=== PATIENT | female | born 1960 | race Caucasian/White ===

== ENCOUNTER 2023-02-04 09:54 | Emergency (ER) | payer MEDICAID, SELFPAY ==
[2023-02-04] VITALS (8 sets, daily range): BP systolic 130–173; BP diastolic 64–95; PULSE 78–101; RESP 15–29; TEMP 36.6–36.8; O2SAT 86–96; BMI 29.2
--- NOTE | 2023-02-04 10:03 | ECG_ITS ---
APPROVED REPORT Exam: Resting ECG HR:81 bpm ECG Measurements Heart Rate 81 AXES HI 153 P 75 QRSd 106 QRS -59 QT 418 T 53 QTc 455 Conclusion SINUS RHYTHM POSSIBLE RIGHT ATRIAL ENLARGEMENT [0.25mV P-WAVE] LEFT ATRIAL ENLARGEMENT [-0.15mV P-WAVE IN V1/V2] LEFT ANTERIOR FASCICULAR BLOCK [QRS AXIS <= -45, QR IN I, RS IN II] POSSIBLE ANTERIOR MYOCARDIAL INFARCTION , PROBABLY OLD [30 ms Q WAVE IN V3/V4, OR R < 0.2 mV IN V4] ABNORMAL ECG UNCONFIRMED REPORT Electronically signed by : Brandon Mueller MD 02/04/2023 17:06:45
--- NOTE | 2023-02-04 10:24 | XR_ITS ---
FINAL REPORT TECHNIQUE: Single view chest CLINICAL HISTORY: soa smoker, copd FINDINGS: A single view of the chest was obtained. The heart and mediastinum are within normal limits. There are mild bibasilar opacities which may represent atelectasis or pneumonia. There is no pneumothorax. Osseous structures are unremarkable. IMPRESSION: Mild bibasilar opacities which may represent atelectasis or pneumonia. Reviewed, Interpreted and Dictated by Jamie Barber III, MD Transcribed by Sofia Munguia Authenticated and [facility]
[2023-02-04 10:31] LABS: Basophils # 0.1 K/mm3 (0-0.2); Basophils % 0.3 % (0.1-2.0); Eosinophils # 0.1 K/mm3 (0.0-0.4); Eosinophils % 0.6 % (0.1-12.0); Lymphocytes # 1.8 K/mm3 (0.7-4.5); Lymphocytes % 13.8 % (10-50); Mean Corpuscular HGB Conc 32.9 g/dL (31.8-35.4); Mean Corpuscular Hemoglobin 28.5 pg (27.0-31.2); Mean Corpuscular Volume 86.6 fl (81-99); Mean Platelet Volume 8.3 fl (7.4-10.4); Monocytes # 0.6 K/mm3 (0.1-1.0); Monocytes % 4.9 % (1.7-9.3); Neutrophils # 10.4 K/mm3 (1.8-7.8); Neutrophils % 80.3 % (37.0-80.0); Platelet Count 228 K/mm3 (142-424); Red Blood Count 6.38 M/mm3 (4.20-5.40); Red Cell Distribution Width 15.2 % (11.5-17.5)
[2023-02-04 10:37] LABS: Hematocrit 55.3 % (37.0-47.0); Hemoglobin 18.2 g/dL (12.2-16.2)
--- NOTE | 2023-02-04 10:37 | HMH.EDGENADL ---
Discharge Plan Disposition Patient Disposition: Home, Self-Care Prescriptions Prescriptions: New amoxicillin-pot clavulanate 875-125 mg tablet 1 tab PO BID 7 Days Qty: 14 0RF hydroxyzine pamoate [Vistaril] 25 mg capsule 25 mg PO Q6H PRN (Reason: anxiety) Qty: 30 0RF No Action methocarbamol 750 mg tablet 750 mg PO TID mirtazapine 7.5 mg tablet 7.5 mg PO DAILY Patient Comments: TAKE 1 TABLET BY MOUTH AT BEDTIME sertraline 25 mg tablet 25 mg PO DAILY Patient Comments: TAKE 1 TABLET BY MOUTH ONCE DAILY gabapentin 800 mg tablet 800 mg PO QID Patient Comments: TAKE 1 TABLET BY MOUTH 4 TIMES DAILY NEEDED FOR BACK PAIN levothyroxine 88 mcg tablet 88 mcg PO DAILY atorvastatin 40 mg tablet 40 mg PO DAILY Trelegy Ellipta 200-62.5-25 mcg blister with device 1 inh inhalation DAILY Patient Comments: INHALE 1 PUFF BY MOUTH ONCE DAILY- NEEDS TO BE SEEN FOR FURTHER REFILLS omeprazole 20 mg capsule,delayed release(DR/EC) 20 mg PO DAILY quetiapine 25 mg tablet 25 mg PO HS Patient Comments: TAKE 1 TO 2 TABLETS BY MOUTH AT BEDTIME fluoxetine 20 mg tablet 20 mg PO DAILY Patient Comments: TAKE 1 TABLET BY MOUTH ONCE DAILY ferrous sulfate 325 mg (65 mg iron) tablet,delayed release (DR/EC) 325 mg PO DAILY Patient Comments: TAKE 1 TABLET BY MOUTH TWICE DAILY ondansetron 4 mg tablet,disintegrating 4 mg PO TIDP PRN (Reason: Nausea And Vomiting) Patient Comments: DISSOLVE 1 TABLET IN MOUTH EVERY 8 HOURS NEEDED FOR NAUSEA oxycodone-acetaminophen [Percocet] 5-325 mg tablet 1 tab PO BID Referrals Follow up/Referrals: Sukumar Jiménez MD [Primary Care Provider] - See instructions Activity Restrictions/Add. Instructions Additional Instructions/Restrictions: Call your family doctor to establish care for this visit to the emergency department and schedule follow-up within 48 hours to ensure improvement. If you have any worsening of your condition or any other concerning signs or symptoms, return to the emergency department or your primary care doctor for further evaluation. Antibiotic twice daily for 7 days and Vistaril every 6 hours as needed for anxiety. Clinical Impressions Clinical Impression: COPD (chronic obstructive pulmonary disease), Pneumonia Discharge ED Provider: Luther Cade General Adult HPI General Chief complaint: Shortness of Breath/Dyspnea Stated complaint: soa Time Seen by Provider: 02/04/23 10:00 Mode of Arrival: Family Vehicle Source of Information: Patient and Spouse Limitations: No Limitations Description of Symptoms (Recalled from ER Triage Doc. by RN): Pt c/o SOA and esophageal area pain. Pt reports a hx of COPD and does use O2 at home PRN (2-3LPM). Pt has not been using it as she does still smoke. Her room air sat was 86%. She did take her Albuterol inhaler ~ 0800 and it did not help. Denies any fever, chills, or cough. History of Present Illness HPI narrative: 62-year-old female with history of hypertension, hyperlipidemia, COPD on intermittent nasal cannula oxygen, current tobacco use presenting with shortness of breath. Patient states that has been getting worse over approximately 2 weeks. 1 day prior to arrival on 02/03, in the evening, states that she was feeling worse. Is using her oxygen most of yesterday, typically she only uses it at night or intermittently with exertion. She has had worsening cough, but no increase in production of sputum, or character of sputum change, fevers or chills, nausea or vomiting, abdominal pain, diaphoresis, recent travel, sick contacts, or any other concerns. Related Data Home Medications Medication Instructions Recorded Confirmed atorvastatin 40 mg tablet 40 mg PO DAILY High Cholesterol 01/02/23 02/04/23 fluticasone fur. 200 mcg-umeclid 1 inh inhalation DAILY Copd 01/02/23 02/04/23 62.5 mcg-vilant 25 mcg inhalat.powder
--- NOTE | 2023-02-04 10:38 | PC.NURSE ---
Respiratory notified of VBG order and blood in the lab.
--- NOTE | 2023-02-04 10:39 | PC.NURSE ---
site supervising technical operator at bedside for CXR
[2023-02-04 10:45] LABS: Alanine Aminotransferase 20 U/L (12-78); Albumin Level 4.4 g/dl (3.5-5.0); Albumin/Globulin Ratio 1.2 (1.1-1.8); Alkaline Phosphatase 87 U/L (38-126); Anion Gap 12.3 mEq/L (5-15); Aspartate Amino Transferase 28 U/L (14-36); Bilirubin,Total 0.5 mg/dl (0.2-1.3); Blood Urea Nitrogen 5 mg/dl (7-17); Calcium 7.1 mg/dl (8.4-10.2); Carbon Dioxide 32 mmol/L (22.0-30.0); Chloride 97 mmol/L (98-107); Creatinine Clearance Estimated 79 mL/min (50-200); Estimated Glomerular Filt Rate 125 ml/min (>60); GFR (African American) 152 ML/MIN (>60); Globulin 3.8 g/dL (1.3-3.2); Glucose 120 mg/dl (74-100); Potassium 3.3 mmoL/L (3.5-5.1); Sodium 138 mmol/L (136-145); Total Protein,Serum 8.2 g/dl (6.3-8.2)
[2023-02-04 10:46] LABS: VBG Base Excess 0.1 mmol/L (-2.4-2.3); VBG HCO3 25.2 mmol/L (23-30); VBG PH 7.39 mmol/L (7.31-7.41); VBG PO2 54.4 mmol/L (28-40); VBG Total CO2 26.5 mmol/L (23-27)
[2023-02-04 11:27] LABS: Troponin I < 0.01 ng/ml (0.00-0.034)
[2023-02-04 11:45] LABS: NT Pro Brain Natriuretic Pep. 30.9 pg/mL (0-125)
== END 2023-02-04 13:05 | disposition home or self-care (01) ==
PROVIDERS: Emergency Provider Emergency Medicine; PCP Emergency Medicine
DX: J44.9 Chronic obstructive pulmonary disease, unspecified (principal); J18.9 Pneumonia, unspecified organism; I10 Essential (primary) hypertension; E78.5 Hyperlipidemia, unspecified; F17.200 Nicotine dependence, unspecified, uncomplicated
CPT/HCPCS: 71045; 80053; 82803; 83880; 84484; 85025; 93005; 96361; 96374; 96375; 99285; J2405

== ENCOUNTER 2023-02-08 21:28 | Observation (INO) | payer MEDICAID, SELFPAY ==
[2023-02-08 21:41] VITALS: RESP 20; O2SAT 98; BMI 29.2
--- NOTE | 2023-02-08 22:57 | PC.NURSE ---
Patient is stable at this time, requesting pain medication- Dr. Wilson made aware
--- NOTE | 2023-02-08 23:03 | CT_ITS ---
PROCEDURE INFORMATION: Exam: CT Abdomen And Pelvis With Contrast Exam date and time: 02/08/2023 11:32 PM Age: 62 years old Clinical indication: Abdominal pain; Acute; Additional info: Epigastric abd pain vomiting/diarrhea, recent pna TECHNIQUE: Imaging protocol: Computed tomography of the abdomen and pelvis with contrast. Radiation optimization: All CT scans at this facility use at least one of these dose optimization techniques: automated exposure control; mA and/or kV adjustment per patient size (includes targeted exams where dose is matched to clinical indication); or iterative reconstruction. Contrast material: ISOVUE; Contrast volume: 70 ml; Contrast route: IV; REPORTING DATA: Count of CT and Cardiac NM exams in prior 12 months: This patient has received 0 known CTs and 0 known cardiac nuclear medicine studies in the 12 months prior to the current study. COMPARISON: CR XR CHEST PORTABLE 02/04/2023 10:53 AM FINDINGS: Lungs: Minimal basilar subsegmental atelectasis. Heart: Tiny pericardial effusion. Liver: 1.8 cm complex cyst versus hemangioma in lateral segment left liver lobe. 1.7 cm lateral segment left liver lobar cyst. Fatty liver infiltration. Gallbladder and bile ducts: Gallbladder not visualized. Mild intrahepatic biliary dilatation. Extrahepatic biliary duct measures up to 1.6 cm. No calculus or intraluminal filling defect. No obstructive mass seen. Pancreas: Normal. No ductal dilation. Spleen: Normal. No splenomegaly. Adrenal glands: Normal. No mass. Kidneys and ureters: Too small to characterize hypodensities in both kidneys likely representing small cysts. Stomach and bowel: Diffuse sigmoid colonic diverticula without pericolonic fat stranding. Appendix: No evidence of appendicitis. Intraperitoneal space: Unremarkable. No free air. No significant fluid collection. Vasculature: Mild atherosclerotic calcification of aortoiliac arteries. Lymph nodes: Unremarkable. No enlarged lymph nodes. Urinary bladder: Unremarkable as visualized. Reproductive: 2.5 x 2.8 cm cystic focus in left ovary/adnexal region. Ovaries not visualized. Bones/joints: Unremarkable. No acute fracture. Soft tissues: Unremarkable. IMPRESSION: 1. Intrahepatic, extrahepatic biliary ductal dilatation status post cholecystectomy. No obvious obstructive calculus or mass identified. Although partially explained by cholecystectomy status can not exclude ampullary level ductal stenosis. 2. Fatty liver infiltration. 3. Complex hepatic cyst versus hemangioma in left liver lobe. 4. Left ovarian/adnexal cystic focus. Consider sonographic evaluation for further imaging with nonurgent ultrasound for further imaging characterization including for evidence for complex features. Can also evaluate liver at same time. 5. Colonic diverticulosis. 6. Tiny pericardial effusion. COMMENTS: Consistent with the [employer] [place] [employer]'s Incidental Findings Committee white paper (J Am Magdalena Radiol 2018): Any incidental renal lesion less than 1 cm or classified as too small to characterize, or any incidental cystic renal lesion characterized as simple-appearing, is likely benign. No follow-up imaging is recommended for these lesions per consensus recommendations based on imaging criteria.
--- NOTE | 2023-02-08 23:04 | XR_ITS ---
PROCEDURE INFORMATION: Exam: XR Chest Exam date and time: 02/09/2023 12:14 AM Age: 62 years old Clinical indication: Pain; Chest pressure; Additional info: Recent dx pna, not tolerating abx TECHNIQUE: Imaging protocol: Radiologic exam of the chest. Views: 1 view. COMPARISON: CR XR CHEST PORTABLE 02/04/2023 10:53 AM FINDINGS: Lungs: Unremarkable. No consolidation. Pleural spaces: Unremarkable. No pleural effusion. No pneumothorax. Heart/Mediastinum: Unremarkable. No cardiomegaly. Bones/joints: Unremarkable. IMPRESSION: No acute findings. No infiltration is seen.
[2023-02-08 23:16] VITALS: BP 133/68; PULSE 74; TEMP 37.2; O2SAT 90
[2023-02-08 23:27] LABS: Basophils # 0.1 K/mm3 (0-0.2); Basophils % 0.5 % (0.1-2.0); Eosinophils # 0.2 K/mm3 (0.0-0.4); Eosinophils % 1.3 % (0.1-12.0); Hematocrit 55.1 % (37.0-47.0); Hemoglobin 17.7 g/dL (12.2-16.2); Lymphocytes # 2.4 K/mm3 (0.7-4.5); Lymphocytes % 17.5 % (10-50); Mean Corpuscular Hemoglobin 27.9 pg (27.0-31.2); Mean Platelet Volume 8.1 fl (7.4-10.4); Monocytes % 7.4 % (1.7-9.3); Neutrophils % 73.4 % (37.0-80.0); Platelet Count 210 K/mm3 (142-424); Red Blood Count 6.34 M/mm3 (4.20-5.40); Red Cell Distribution Width 15.1 % (11.5-17.5); White Blood Count 13.6 K/mm3 (4.8-10.8)
--- NOTE | 2023-02-08 23:34 | PC.NURSE ---
made round nothing needed at this time
--- NOTE | 2023-02-08 23:37 | PC.NURSE ---
patient back from [facility] at this time
[2023-02-08 23:38] LABS: Alanine Aminotransferase 30 U/L (12-78); Albumin Level 4.2 g/dl (3.5-5.0); Albumin/Globulin Ratio 1.3 (1.1-1.8); Alkaline Phosphatase 66 U/L (38-126); Anion Gap 9.8 mEq/L (5-15); Aspartate Amino Transferase 46 U/L (14-36); Bilirubin,Total 1.1 mg/dl (0.2-1.3); Blood Urea Nitrogen 10 mg/dl (7-17); Calcium 6.7 mg/dl (8.4-10.2); Carbon Dioxide 34 mmol/L (22.0-30.0); Chloride 96 mmol/L (98-107); Creatinine Clearance Estimated 79 mL/min (50-200); Estimated Glomerular Filt Rate 125 ml/min (>60); GFR (African American) 152 ML/MIN (>60); Globulin 3.3 g/dL (1.3-3.2); Glucose 99 mg/dl (74-100); Lipase 96 U/L (23-300); Sodium 137 mmol/L (136-145); Total Protein,Serum 7.5 g/dl (6.3-8.2)
[2023-02-08 23:41] LABS: Magnesium 0.6 mg/dl (1.6-2.3); Potassium 2.8 mmoL/L (3.5-5.1)
--- NOTE | 2023-02-08 23:42 | PC.NURSE ---
notified of critical potassium and magnesium. dr connolly notified
[2023-02-08 23:53] LABS: Troponin I < 0.01 ng/ml (0.00-0.034)
[2023-02-09] VITALS (14 sets, daily range): BP systolic 92–140; BP diastolic 67–87; PULSE 60–90; RESP 16–18; TEMP 36.2–37.1; O2SAT 88–98; BMI 29.3
--- NOTE | 2023-02-09 00:06 | PC.NURSE ---
called house, spoke with abran re: hypokalemia, hypomagnesium
--- NOTE | 2023-02-09 00:19 | EXP.HP ---
History of Present Illness *Admission Date: 02/09/23 *Reason for visit:: diarrhea and abdominal pain *History of present illness: This is a 62-year-old female with PMHx of diverticulitis, hypertension, hyperlipidemia, COPD on intermittent nasal cannula oxygen, current tobacco use presenting with worsening epigastric and RUQ abdominal pain and inability to tolerate p.o. She reported that she was diagnosed with pneumonia 02/04. After ER evaluation patient was sent home with oral Augmentin but she has been unable to tolerate the antibiotics. She has not been vomiting a lot but has had dry heaves. reported several diarrhea after initiated oral antibiotic. Admitted for treatment and management. [facility] Disclaimer: The information contained in this section may have been updated after the patient was seen, as this information can be updated by other users. Medical History (Updated 02/09/23 @ 14:59 by Andrew Villanueva MD) COPD (chronic obstructive pulmonary disease) Hyperlipidemia Hypertension Social History (Updated 02/09/23 @ 01:13 by Cassia Santos RN) Smoking Status: Former smoker alcohol intake: never current occupational status: unemployed Travel in the last 8 weeks: None Review of Systems Review of Systems Review of systems:: pertinent systems reviewed and negative unless documented below Meds Home Medications and Allergies Home Medications Medication Instructions Recorded Confirmed Type atorvastatin 40 mg tablet 40 mg PO DAILY High Cholesterol 01/02/23 02/09/23 History fluticasone fur. 200 mcg-umeclid 1 inh inhalation DAILY Copd 01/02/23 02/09/23 History 62.5 mcg-vilant 25 mcg inhalat.powder (Trelegy Ellipta) gabapentin 800 mg tablet 800 mg PO QID neuropathy 01/02/23 02/09/23 History levothyroxine 88 mcg tablet 88 mcg PO DAILY thyroid 01/02/23 02/09/23 History mirtazapine 7.5 mg tablet 7.5 mg PO HS Anxiety 01/02/23 02/09/23 History omeprazole 20 mg capsule,delayed 40 mg PO DAILY gerd 01/02/23 02/09/23 History release ferrous sulfate 325 mg (65 mg 325 mg PO BID anemia 02/04/23 02/09/23 History iron) tablet,delayed release fluoxetine 20 mg tablet 20 mg PO DAILY Depression 02/04/23 02/09/23 History hydroxyzine pamoate 25 mg capsule 25 mg PO Q6H PRN anxiety #30 caps 02/04/23 02/09/23 Rx (Vistaril) oxycodone-acetaminophen 5 mg-325 1 tab PO BID chronic pain 02/04/23 02/09/23 History mg tablet (Percocet) quetiapine 25 mg tablet 25 mg PO HS sleep 02/04/23 02/09/23 History methocarbamol 750 mg tablet 750 mg PO TID MUSCLE SPASMS 02/09/23 02/09/23 History ondansetron 8 mg disintegrating 8 mg PO Q12HP PRN nausea and 02/09/23 02/09/23 History tablet vomiting trazodone 50 mg tablet 50 mg PO HS SLEEP 02/09/23 02/09/23 History New Prescriptions to Start Prescriptions: Allergies Allergy/AdvReac Type Severity Reaction Status Date / Time No Known Allergies Allergy Unverified 01/02/23 08:13 Exam Data for Last 24 hours Vital signs and Labs for Last 24 Hours: Temp Pulse Resp BP Pulse Ox O2 Del Method 98.9 F 74 20 133/68 90 L Room Air 02/08/23 23:16 02/08/23 23:16 02/08/23 21:41 02/08/23 23:16 02/08/23 23:16 02/08/23 21:41 Laboratory Results - last 24 hr 02/08/23 23:10: WBC 13.6 H, RBC 6.34 H, Hgb 17.7 H, Hct 55.1 H, MCV 87.0, MCH 27.9, MCHC 32.0, RDW 15.1, Plt Count 210, MPV 8.1, Neut % (Auto) 73.4, Lymph % (Auto) 17.5, [place] % (Auto) 7.4, Eos % (Auto) 1.3, Baso % (Auto) 0.5, Neut # (Auto) 10.0 H, Lymph # (Auto) 2.4, [place] # (Auto) 1.0, Eos # (Auto) 0.2, Baso # (Auto) 0.1, Sodium 137, Potassium 2.8 L*, Chloride 96 L, Carbon Dioxide 34 H, Anion Gap 9.8, BUN 10, Creatinine 0.50 L, Estimated Creat Clear 79, Estimated GFR 125, Est GFR ( Amer) 152, Glucose 99, Calcium 6.7 L, Magnesium 0.6 L, Total Bilirubin 1.1, AST 46 H, ALT 30, Alkaline Phosphatase 66, Troponin I < 0.01, Total Protein 7.5, Albumin 4.2, Globulin 3.3 H, Albumin/Globulin Ratio 1.3, Lipase 96 I & O for Last
--- NOTE | 2023-02-09 00:22 | HMH.EDGENADL ---
Discharge Plan Disposition Patient Disposition: Admitted Clinical Impressions Clinical Impression: Acute hypokalemia, Hypomagnesemia, Hypocalcemia Abdominal pain Qualifiers: Abdominal location: epigastric Qualified Code(s): R10.13 - Epigastric pain Pneumonia Qualifiers: Pneumonia type: due to unspecified organism Laterality: bilateral Lung location: unspecified part of lung Qualified Code(s): J18.9 - Pneumonia, unspecified organism N&V (nausea and vomiting) Qualifiers: Vomiting type: unspecified Qualified Code(s): R11.2 - Nausea with vomiting, unspecified Discharge ED Provider: Anibal Matthews General Adult HPI General Chief complaint: Nausea/Vomiting/Diarrhea Stated complaint: nausea,abd pain Time Seen by Provider: 02/08/23 23:03 Mode of Arrival: EMS Source of Information: Patient Limitations: No Limitations Description of Symptoms (Recalled from ER Triage Doc. by RN): Patient states she was seen here Saturday for same complaints of nausea with pain to left upper quad, states she is unable to take prescribed nausea meds because it make s me sick. Patient states she has diverticulitits History of Present Illness HPI narrative: 62-year-old female reported history of COPD and diverticulitis. She presents with worsening epigastric abdominal pain and inability to tolerate p.o. She reports that she was diagnosed with pneumonia last week but has been unable to take the antibiotics secondary to pain and nausea. She has not been vomiting a lot but has had dry heaves. She feels quite bad in general. Related Data Home Medications Medication Instructions Recorded Confirmed atorvastatin 40 mg tablet 40 mg PO DAILY High Cholesterol 01/02/23 02/09/23 fluticasone fur. 200 mcg-umeclid 1 inh inhalation DAILY Copd 01/02/23 02/09/23 62.5 mcg-vilant 25 mcg inhalat.powder (Trelegy Ellipta) gabapentin 800 mg tablet 800 mg PO QID neuropathy 01/02/23 02/09/23 levothyroxine 88 mcg tablet 88 mcg PO DAILY thyroid 01/02/23 02/09/23 methocarbamol 750 mg tablet 750 mg PO TID muscle 01/02/23 02/09/23 mirtazapine 7.5 mg tablet 7.5 mg PO DAILY nerves 01/02/23 02/09/23 omeprazole 20 mg capsule,delayed 20 mg PO DAILY gerd 01/02/23 02/09/23 release sertraline 25 mg tablet 25 mg PO DAILY Depression 01/02/23 02/09/23 ferrous sulfate 325 mg (65 mg 325 mg PO DAILY anemia 02/04/23 02/09/23 iron) tablet,delayed release fluoxetine 20 mg tablet 20 mg PO DAILY Depression 02/04/23 02/09/23 oxycodone-acetaminophen 5 mg-325 1 tab PO BID chronic pain 02/04/23 02/09/23 mg tablet (Percocet) quetiapine 25 mg tablet 25 mg PO HS sleep 02/04/23 02/09/23 Previous Rx's Medication Instructions Recorded hydroxyzine pamoate 25 mg capsule 25 mg PO Q6H PRN anxiety #30 caps 02/04/23 (Vistaril) ondansetron 8 mg disintegrating 8 mg PO Q12H PRN nausea and 02/07/23 tablet vomiting #30 tabs Allergies Allergy/AdvReac Type Severity Reaction Status Date / Time No Known Allergies Allergy Unverified 01/02/23 08:13 [facility] Disclaimer: The information contained in this section may have been updated after the patient was seen, as this information can be updated by other users. Medical History (Updated 02/09/23 @ 03:46 by Anibal Matthews MD) COPD (chronic obstructive pulmonary disease) Hyperlipidemia Hypertension Social History (Updated 02/09/23 @ 01:13 by Cassia Santos RN) Smoking Status: Former smoker alcohol intake: never current occupational status: unemployed Travel in the last 8 weeks: None ROS Obtained: Yes All systems reviewed & no additional complaints except as documented Physical Exam General General appearance: alert and other (Uncomfortable appearing) Head Head exam: atraumatic and normocephalic Eye Eye exam: Present normal appearance, PERRL and EOMI ENT ENT exam: Present normal oropharynx and normal external ear exam Neck Neck exam: Present normal inspection and full ROM Chest Chest inspection: Present norm
--- NOTE | 2023-02-09 00:25 | PC.NURSE ---
Patient wanted to get up to the bathroom but was unable I am going to pass out, so patient was assisted back to bed. made aware
--- NOTE | 2023-02-09 00:30 | ECG_ITS ---
APPROVED REPORT Exam: Resting ECG HR:71 bpm ECG Measurements Heart Rate 71 AXES DE 149 P 97 QRSd 116 QRS -76 QT 449 T 84 QTc 471 Conclusion SINUS RHYTHM POSSIBLE LEFT ATRIAL ENLARGEMENT [-0.1mV P-WAVE IN V1/V2] INCOMPLETE RIGHT BUNDLE BRANCH BLOCK [90+ ms QRS DURATION, TERMINAL R IN V1/V2, 40+ ms S IN I/aVL/V4/V5/V6] LEFT ANTERIOR FASCICULAR BLOCK Late R wave progression ABNORMAL ECG UNCONFIRMED REPORT Electronically signed by : Brandon Mueller MD 02/10/2023 07:35:28
--- NOTE | 2023-02-09 00:38 | PC.NURSE ---
Report given to HOMER Grant
--- NOTE | 2023-02-09 00:51 | PC.NURSE ---
Patient arrived to floor via stretcher at 00:47.
[2023-02-09 01:52] LABS: Microscopic, Urine URINE MICROSCOPIC (MICROSCOPIC)
[2023-02-09 01:55] LABS: Appearance,Urine CLEAR (Clear); Blood, Urine TRACE-I (Negative); Color,Urine YELLOW (Yellow); Glucose,Urine (UA) Negative (Negative); Ketones,Urine 1+ (Negative); Leukocyte Esterase,Urine TRACE (Negative); Nitrate,Urine Negative (Negative); Protein,Urine Negative (Negative); Urobilinogen,Urine 0.2 EU/dl (0.2)
[2023-02-09 01:58] LABS: Bilirubin,Urine 1+ (Negative)
[2023-02-09 02:14] LABS: Bacteria,Urine Trace /lpf; RBC,Urine Occasional #/hpf (0-3)
[2023-02-09 02:20] LABS: Troponin I < 0.01 ng/ml (0.00-0.034)
[2023-02-09 07:36] LABS: Basophils # 0.1 K/mm3 (0-0.2); Basophils % 0.5 % (0.1-2.0); Eosinophils # 0.2 K/mm3 (0.0-0.4); Eosinophils % 1.3 % (0.1-12.0); Hematocrit 54.7 % (37.0-47.0); Hemoglobin 17.8 g/dL (12.2-16.2); Lymphocytes # 2.2 K/mm3 (0.7-4.5); Lymphocytes % 17.9 % (10-50); Mean Corpuscular HGB Conc 32.6 g/dL (31.8-35.4); Mean Corpuscular Hemoglobin 28.3 pg (27.0-31.2); Mean Corpuscular Volume 86.8 fl (81-99); Mean Platelet Volume 8.1 fl (7.4-10.4); Monocytes # 0.9 K/mm3 (0.1-1.0); Monocytes % 7.4 % (1.7-9.3); Neutrophils # 9.2 K/mm3 (1.8-7.8); Platelet Count 192 K/mm3 (142-424); Red Cell Distribution Width 15.2 % (11.5-17.5); White Blood Count 12.5 K/mm3 (4.8-10.8)
[2023-02-09 07:42] LABS: Chloride 100 mmol/L (98-107); Sodium 137 mmol/L (136-145)
[2023-02-09 07:44] LABS: Blood Urea Nitrogen 7 mg/dl (7-17); Creatinine Clearance Estimated 79 mL/min (50-200); Estimated Glomerular Filt Rate 125 ml/min (>60); GFR (African American) 152 ML/MIN (>60); Potassium 2.8 mmoL/L (3.5-5.1)
[2023-02-09 07:45] LABS: Alanine Aminotransferase 21 U/L (12-78); Albumin Level 3.7 g/dl (3.5-5.0); Albumin/Globulin Ratio 1.3 (1.1-1.8); Alkaline Phosphatase 79 U/L (38-126); Anion Gap 12.8 mEq/L (5-15); Aspartate Amino Transferase 40 U/L (14-36); Bilirubin,Total 1.2 mg/dl (0.2-1.3); Calcium 6.5 mg/dl (8.4-10.2); Carbon Dioxide 27 mmol/L (22.0-30.0); Globulin 2.9 g/dL (1.3-3.2); Glucose 101 mg/dl (74-100); Total Protein,Serum 6.6 g/dl (6.3-8.2)
--- NOTE | 2023-02-09 07:56 | PC.NURSE ---
pts saturation was 85% on RA this morning when i assessed her. placed pt on 2lnc she came up to 89%. she is now on 3lnc and has had a breathing treatment. 96% currently
[2023-02-09 08:35] LABS: Phosphorous 3.3 mg/dl (2.5-4.5)
[2023-02-09 08:47] LABS: Intact Parathyroid Hormone 83.2 pg/mL (7.5-53.5)
--- NOTE | 2023-02-09 09:07 | CT_ITS ---
PROCEDURE INFORMATION: Exam: CTA Chest With Contrast Exam date and time: 02/09/2023 9:34 AM Age: 62 years old Clinical indication: Shortness of breath; Additional info: SOA, increased O2 requirement TECHNIQUE: Imaging protocol: Computed tomographic angiography of the chest with contrast. Exam focused on the arteries. 3D rendering (Not supervised by radiologist): MIP and/or 3D reconstructed images were created by the technologist. Radiation optimization: All CT scans at this facility use at least one of these dose optimization techniques: automated exposure control; mA and/or kV adjustment per patient size (includes targeted exams where dose is matched to clinical indication); or iterative reconstruction. Contrast material: ISOVUE 370; Contrast volume: 70 ml; Contrast route: INTRAVENOUS (IV); REPORTING DATA: Count of CT and Cardiac NM exams in prior 12 months: This patient has received [address] and 0 known cardiac nuclear medicine studies in the 12 months prior to the current study. COMPARISON: CR XR CHEST PORTABLE 02/09/2023 12:14 AM FINDINGS: Pulmonary arteries: Normal. No pulmonary emboli. Aorta: Aortoiliac atherosclerosis. Trachea: Peribronchial thickening, nonspecific, but can be seen in setting of acute bronchitis or reactive airway disease. Lungs: Unremarkable. No consolidation. No masses. Pleural spaces: Unremarkable. No pneumothorax. No pleural effusion. Heart: Unremarkable. No cardiomegaly. No pericardial effusion. Lymph nodes: Unremarkable. No enlarged lymph nodes. Bones/joints: Unremarkable. No acute fracture. Soft tissues: Unremarkable. IMPRESSION: Peribronchial thickening, nonspecific, but can be seen in setting of acute bronchitis or reactive airway disease.
[2023-02-09 09:21] LABS: 25-OH Vitamin D, Total 26.2 ng/mL (30-100)
--- NOTE | 2023-02-09 09:27 | PC.NURSE ---
off the floor with radiology
--- NOTE | 2023-02-09 09:54 | EXP.ACUTE.PN ---
Subjective *Date: 02/09/23 *Time: 15:08 Interval history: Patient's pain through the day has been more epigastric and left upper quadrant per her complaint. No zan vomiting or diarrhea today. Making adequate urine. Review of labs shows impressive erythrocytosis, hypocalcemia, persistent hypokalemia. Wanted to try eating, advance diet, tolerating full liquids at this time. Stable on 3 L nasal cannula which she wears at home intermittently. Medical Exam Vital signs and Labs for Last 24 Hours: Vital Signs Temp Pulse Pulse Resp BP BP Pulse Ox 02/09/23 08:00 96 02/09/23 08:00 60 02/09/23 07:53 73 02/09/23 07:53 75 02/09/23 07:53 88 L 02/09/23 07:11 98.0 F 83 18 136/75 90 L 02/09/23 01:00 70 02/09/23 04:00 70 02/09/23 07:00 02/09/23 05:00 02/09/23 04:07 98.7 F 73 18 140/78 98 02/09/23 02:58 105/80 L 02/09/23 02:48 02/09/23 01:00 02/09/23 03:00 02/09/23 01:58 97.2 F L 78 18 92/80 L 90 L 02/09/23 00:40 98.4 F 77 18 132/76 02/08/23 23:16 98.9 F 74 133/68 90 L 02/08/23 21:41 20 98 O2 Del Method O2 Flow Rate 02/09/23 08:00 Nasal Cannula 3 02/09/23 08:00 02/09/23 07:53 02/09/23 07:53 02/09/23 07:53 Nasal Cannula 3 02/09/23 07:11 Nasal Cannula 2 02/09/23 01:00 02/09/23 04:00 02/09/23 07:00 Room Air 02/09/23 05:00 Room Air 02/09/23 04:07 Room Air 02/09/23 02:58 02/09/23 02:48 Room Air 02/09/23 01:00 Room Air 02/09/23 03:00 Room Air 02/09/23 01:58 Room Air 02/09/23 00:40 02/08/23 23:16 02/08/23 21:41 Room Air Intake and Output 02/08/23 02/09/23 02/09/23 23:59 07:59 15:59 Intake Total 1000 / 1000 Output Total 900 / 900 0 / 900 Balance 100 / 100 0 / 100 Intake: Intake, Oral Amount 0 / 0 Intake, Total IV Amount 1000 / 1000 Output: Output, Urine Amount 900 / 900 0 / 900 Other: Number of Unmeasured Voids 1 1 Weight 84.822 kg 84.878 kg Patient Weight 02/09/23 23:59 Weight 84.878 kg Laboratory Results - last 24 hr 02/08/23 23:10: WBC 13.6 H, RBC 6.34 H, Hgb 17.7 H, Hct 55.1 H, MCV 87.0, MCH 27.9, MCHC 32.0, RDW 15.1, Plt Count 210, MPV 8.1, Neut % (Auto) 73.4, Lymph % (Auto) 17.5, [place] % (Auto) 7.4, Eos % (Auto) 1.3, Baso % (Auto) 0.5, Neut # (Auto) 10.0 H, Lymph # (Auto) 2.4, [place] # (Auto) 1.0, Eos # (Auto) 0.2, Baso # (Auto) 0.1, Sodium 137, Potassium 2.8 L*, Chloride 96 L, Carbon Dioxide 34 H, Anion Gap 9.8, BUN 10, Creatinine 0.50 L, Estimated Creat Clear 79, Estimated GFR 125, Est GFR ( Amer) 152, Glucose 99, Calcium 6.7 L, Magnesium 0.6 L, Total Bilirubin 1.1, AST 46 H, ALT 30, Alkaline Phosphatase 66, Troponin I < 0.01, Total Protein 7.5, Albumin 4.2, Globulin 3.3 H, Albumin/Globulin Ratio 1.3, Lipase 96 02/09/23 01:46: Urine Color Yellow, Urine Appearance Clear, Urine pH 7.0, Ur Specific [place] 1.010, Urine Protein Negative, Urine Glucose (UA) Negative, Urine Ketones 1+, Urine Blood Trace-i, Urine Nitrate Negative, Urine Bilirubin 1+ A, Urine Urobilinogen 0.2, Ur Leukocyte Esterase Trace, Urine RBC Occasional, Urine WBC 5-10, Ur Squamous Epith Cells 10-20, Urine Bacteria Trace 02/09/23 01:50: Troponin I < 0.01 02/09/23 06:42: WBC 12.5 H, RBC 6.30 H, Hgb 17.8 H, Hct 54.7 H, MCV 86.8, MCH 28.3, MCHC 32.6, RDW 15.2, Plt Count 192, MPV 8.1, Neut % (Auto) 73.0, Lymph % (Auto) 17.9, [place] % (Auto) 7.4, Eos % (Auto) 1.3, Baso % (Auto) 0.5, Neut # (Auto) 9.2 H, Lymph # (Auto) 2.2, [place] # (Auto) 0.9, Eos # (Auto) 0.2, Baso # (Auto) 0.1, Sodium 137, Potassium 2.8 L*, Chloride 100, Carbon Dioxide 27, Anion Gap 12.8, BUN 7 D, Creatinine 0.50 L, Estimated Creat Clear 79, Estimated GFR 125, Est GFR ( Amer) 152, Glucose 101 H, Calcium 6.5 L, Phosphorus 3.3, Magnesium 2.0 D, Total Bilirubin 1.2, AST 40 H, ALT 21 D, Alkaline Phosphatase 79, Total Protein 6.6, Albumin 3.7 D, Globulin 2.9, Albumin/Glob
[2023-02-09 10:46] LABS: Thyroid Stimulating Hormone 2.92 uIU/mL (0.465-4.68)
--- NOTE | 2023-02-09 16:30 | PC.NURSE ---
pt is up to the chair. tolerated po intake well
[2023-02-09 18:55] LABS: Hemoglobin 16.9 g/dL (12.2-16.2)
[2023-02-09 19:06] LABS: Chloride 104 mmol/L (98-107); Sodium 140 mmol/L (136-145)
[2023-02-09 19:07] LABS: Potassium 3.3 mmoL/L (3.5-5.1)
[2023-02-09 19:08] LABS: Lipase 291 U/L (23-300)
[2023-02-09 19:09] LABS: Alanine Aminotransferase 25 U/L (12-78); Albumin Level 3.4 g/dl (3.5-5.0); Albumin/Globulin Ratio 1.1 (1.1-1.8); Alkaline Phosphatase 69 U/L (38-126); Anion Gap 10.3 mEq/L (5-15); Aspartate Amino Transferase 34 U/L (14-36); Blood Urea Nitrogen 7 mg/dl (7-17); Calcium 7.4 mg/dl (8.4-10.2); Carbon Dioxide 29 mmol/L (22.0-30.0); Creatinine Clearance Estimated 79 mL/min (50-200); Estimated Glomerular Filt Rate 102 ml/min (>60); GFR (African American) 123 ML/MIN (>60); Glucose 128 mg/dl (74-100); Total Protein,Serum 6.4 g/dl (6.3-8.2)
[2023-02-09 19:10] LABS: Magnesium 1.6 mg/dl (1.6-2.3)
[2023-02-10] VITALS (9 sets, daily range): BP systolic 111–133; BP diastolic 49–83; PULSE 50–80; RESP 16–18; TEMP 36.3–37; O2SAT 86–96; BMI 29.0
--- NOTE | 2023-02-10 05:41 | PC.NURSE ---
pt rested well through the night, cont to c/o ll quad abd pain. vss, remained on 2l/nc
[2023-02-10 09:34] LABS: Basophils % 0.3 % (0.1-2.0); Eosinophils # 0.3 K/mm3 (0.0-0.4); Eosinophils % 2.6 % (0.1-12.0); Hematocrit 52.7 % (37.0-47.0); Hemoglobin 17.1 g/dL (12.2-16.2); Lymphocytes # 2.1 K/mm3 (0.7-4.5); Lymphocytes % 16.5 % (10-50); Mean Corpuscular HGB Conc 32.4 g/dL (31.8-35.4); Mean Corpuscular Hemoglobin 28.1 pg (27.0-31.2); Mean Corpuscular Volume 86.7 fl (81-99); Mean Platelet Volume 8.1 fl (7.4-10.4); Monocytes # 0.6 K/mm3 (0.1-1.0); Monocytes % 4.6 % (1.7-9.3); Neutrophils # 9.8 K/mm3 (1.8-7.8); Platelet Count 206 K/mm3 (142-424); Red Blood Count 6.08 M/mm3 (4.20-5.40); White Blood Count 12.9 K/mm3 (4.8-10.8)
[2023-02-10 09:50] LABS: Chloride 108 mmol/L (98-107); Potassium 4.1 mmoL/L (3.5-5.1); Sodium 140 mmol/L (136-145)
[2023-02-10 09:52] LABS: Alanine Aminotransferase 25 U/L (12-78); Aspartate Amino Transferase 28 U/L (14-36); Blood Urea Nitrogen 9 mg/dl (7-17); Creatinine Clearance Estimated 78 mL/min (50-200); Estimated Glomerular Filt Rate 125 ml/min (>60); GFR (African American) 152 ML/MIN (>60)
[2023-02-10 09:53] LABS: Albumin Level 3.5 g/dl (3.5-5.0); Albumin/Globulin Ratio 1.3 (1.1-1.8); Alkaline Phosphatase 52 U/L (38-126); Anion Gap 9.1 mEq/L (5-15); Bilirubin,Total 0.9 mg/dl (0.2-1.3); Calcium 7.7 mg/dl (8.4-10.2); Carbon Dioxide 27 mmol/L (22.0-30.0); Globulin 2.8 g/dL (1.3-3.2); Glucose 116 mg/dl (74-100); Magnesium 1.4 mg/dl (1.6-2.3); Phosphorous 2.2 mg/dl (2.5-4.5); Total Protein,Serum 6.3 g/dl (6.3-8.2)
--- NOTE | 2023-02-10 10:16 | PC.NURSE ---
pts oxygen saturation is 86% on Room air at rest
--- NOTE | 2023-02-10 11:04 | EXP.DC.SUM ---
General Admission date:: 02/09/23 Discharge date: 02/10/23 HPI HPI HPI: This is a 62-year-old female with PMHx of diverticulitis, hypertension, hyperlipidemia, COPD on intermittent nasal cannula oxygen, current tobacco use presenting with worsening epigastric and RUQ abdominal pain and inability to tolerate p.o. She reported that she was diagnosed with pneumonia 02/04. After ER evaluation patient was sent home with oral Augmentin but she has been unable to tolerate the antibiotics. She has not been vomiting a lot but has had dry heaves. reported several diarrhea after initiated oral antibiotic. Admitted for treatment and management. Hospital Course Hospital Course Hospital Course: 62-year-old female with PMHx of diverticulitis, hypertension, hyperlipidemia, COPD on intermittent nasal cannula oxygen, current tobacco use presenting with worsening epigastric abdominal pain and inability to tolerate p.o. She reported that she was diagnosed with pneumonia 02/04. Initial ER evaluation included CT of abdomen result concerning of Mild intrahepatic biliary dilatation. Extrahepatic biliary duct measures up to 1.6 cm. No calculus or intraluminal filling defect. No obstructive mass seen. Liver enzymes remain normal. Due to intolerance of oral intake, significant electrolyte disturbances, and abdominal pain, patient was admitted for further management. Started on IV antibiotics and electrolyte repletion. Overall improved during admission. Work-up as below. Stable for discharge home. Problems addressed as follows: -Left upper quadrant/epigastric pain Lipase within a normal range. Pain in the upper quadrants as well as epigastric. Given GI cocktail with improvement in discomfort. Transitioned omeprazole to pantoprazole. Continue at discharge. CT of abdomen showed some biliary distention but liver enzymes and bilirubin were normal. Pancreas appeared normal. Diverticula but no diverticulitis. Suspect component of gastritis. Would benefit from referral to GI or surgery for consideration of diagnostic EGD/colonoscopy for routine screening and work-up of possible gastritis. Recommended avoiding NSAIDs. Tolerating good p.o. intake by discharge. No vomiting or diarrhea during admission -Bronchitis -COPD -Tobacco use disorder CTA of chest obtained, no PEs or focal consolidation, findings consistent with significant bronchitis. Patient was initiated on IV Zosyn. White cell count remained stable in the 12 range. Transition to Levaquin to complete 5 days of antibiotics total. Suspect component of COPD as well. Continue inhalers at discharge. Supplemental oxygen as needed, on home O2. Continue 2 to 3 L as needed. Counseled on smoking cessation. Patient interested in quitting. Sent home with 2 months of nicotine patches. Encouraged gum in addition if has cravings even with patch use. Recommend continuing patches and titrating down with the assistance of her PCP in the outpatient setting. - Polycythemia Unclear etiology, risk factors include her smoking. Concern for polycythemia secondary to chronic tobacco use and relative chronic hypoxemia. Peripheral smear obtained however. JAK2 mutation ordered to evaluate for polycythemia vera. Therapeutic phlebotomy performed during admission with removal of 250 cc of blood. Repeat hemoglobin remained elevated at 17 on day of discharge. Recommended discontinuing her iron supplementation. Peripheral smear still pending at discharge. Would benefit from referral to hematology for further management. Recommend repeat CBC or H&H in 1 week. -Hypokalemia -hypomagnesemia: -Hypocalcemia secondary to excessive loss with diarrhea vs GI losses versus inadequate intake secondary to augmentin PO. Repleted during admission. Tolerated oral and IV replacement. Potassium within normal range on day of discharge at 4.1. Magnesium 1.4 on day of discharge, replaced 2 g morning of discharge. Calcium improving and at 7.7. PTH
--- NOTE | 2023-02-10 13:24 | PC.NURSE ---
pt has been discahrged form the facility. took all belongings with her and voiced understanding of all dc education and follow appts. has home o2. [facility] [place]
--- NOTE | 2023-02-11 14:09 | SW/DCPLANNER ---
Follow up phone call was made w/ this patient today regarding hospital discharge. 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 Patient stated that she does have a follow up w/ PCP on 03/01/23.
[2023-02-11 15:52] LABS: Peripheral Smear Review Scanned Result
[2023-02-11 18:20] LABS: Calcium, Ionized 4.1 mg/dL (4.5-5.6)
== END 2023-02-10 13:24 | disposition home or self-care (01) ==
LOC: ER 23:03 → 2ND 02-09 00:52
PROVIDERS: Nurse Practitioner Family; Admitting Provider Internal Medicine Adolescent Medicine; Emergency Provider Emergency Medicine; PCP Emergency Medicine; Visit Provider Internal Medicine Adolescent Medicine
DX: R10.11 Right upper quadrant pain (principal); J18.9 Pneumonia, unspecified organism; E83.42 Hypomagnesemia; E87.6 Hypokalemia; E83.51 Hypocalcemia; D75.1 Secondary polycythemia; R19.7 Diarrhea, unspecified; J44.0 Chronic obstructive pulmonary disease with (acute) lower respiratory infection; F17.210 Nicotine dependence, cigarettes, uncomplicated; J40 Bronchitis, not specified as acute or chronic; Z79.899 Other long term (current) drug therapy
CPT/HCPCS: 36415; 71045; 71275; 74177; 80053; 81001; 81270; 82306; 82330; 83690; 83735; 83970; 84100; 84443; 84484; 85014; 85018; 85025; 93005; 94640; 99195; 99291; G0378; J0696; J2405; J2543; J3475; Q9967

== ENCOUNTER 2023-02-24 08:49 | Emergency (ER) | payer MEDICAID, SELFPAY ==
[2023-02-24 09:00] VITALS: BP 149/81; PULSE 88; RESP 19; TEMP 36.6; O2SAT 92; BMI 27.3
--- NOTE | 2023-02-24 09:00 | ECG_ITS ---
APPROVED REPORT Exam: Resting ECG HR:82 bpm ECG Measurements Heart Rate 82 AXES MT 161 P 75 QRSd 88 QRS -74 QT 383 T 68 QTc 422 Conclusion SINUS RHYTHM Late R wave progression. Left axis deviation ABNORMAL ECG UNCONFIRMED REPORT Electronically signed by : Brandon Mueller MD 02/25/2023 08:32:20
--- NOTE | 2023-02-24 09:07 | XR_ITS ---
PROCEDURE INFORMATION: Exam: XR Chest Exam date and time: 02/24/2023 9:29 AM Age: 62 years old Clinical indication: Shortness of breath; Additional info: Cp SOA TECHNIQUE: Imaging protocol: Radiologic exam of the chest. Views: 1 view. COMPARISON: CR XR CHEST PORTABLE 02/09/2023 12:14 AM FINDINGS: Lungs: Unremarkable. No consolidation. Pleural spaces: Unremarkable. No pleural effusion. No pneumothorax. Heart/Mediastinum: Unremarkable. No cardiomegaly. Bones/joints: Unremarkable. IMPRESSION: No acute findings.
--- NOTE | 2023-02-24 09:11 | PC.NURSE ---
Notified RT of VBG order
--- NOTE | 2023-02-24 09:12 | PC.NURSE ---
RAD at [facility] CXR
[2023-02-24 09:13] LABS: Basophils % 0.3 % (0.1-2.0); Eosinophils # 0.2 K/mm3 (0.0-0.4); Eosinophils % 2.1 % (0.1-12.0); Hematocrit 50.4 % (37.0-47.0); Lymphocytes # 2.5 K/mm3 (0.7-4.5); Lymphocytes % 23.7 % (10-50); Mean Corpuscular HGB Conc 33.7 g/dL (31.8-35.4); Mean Corpuscular Hemoglobin 29.9 pg (27.0-31.2); Mean Corpuscular Volume 88.8 fl (81-99); Mean Platelet Volume 8.4 fl (7.4-10.4); Monocytes # 0.5 K/mm3 (0.1-1.0); Monocytes % 4.7 % (1.7-9.3); Neutrophils # 7.4 K/mm3 (1.8-7.8); Neutrophils % 69.2 % (37.0-80.0); Platelet Count 208 K/mm3 (142-424); Red Blood Count 5.67 M/mm3 (4.20-5.40); White Blood Count 10.7 K/mm3 (4.8-10.8)
[2023-02-24 09:17] LABS: Chloride 101 mmol/L (98-107); Potassium 3.8 mmoL/L (3.5-5.1); Sodium 144 mmol/L (136-145)
[2023-02-24 09:19] LABS: Blood Urea Nitrogen 6 mg/dl (7-17); Creatinine Clearance Estimated 78 mL/min (50-200); Estimated Glomerular Filt Rate 125 ml/min (>60); GFR (African American) 152 ML/MIN (>60)
[2023-02-24 09:20] LABS: Alanine Aminotransferase 31 U/L (12-78); Albumin Level 4.4 g/dl (3.5-5.0); Albumin/Globulin Ratio 1.3 (1.1-1.8); Alkaline Phosphatase 84 U/L (38-126); Anion Gap 13.8 mEq/L (5-15); Aspartate Amino Transferase 34 U/L (14-36); Bilirubin,Total 0.3 mg/dl (0.2-1.3); Carbon Dioxide 33 mmol/L (22.0-30.0); Globulin 3.3 g/dL (1.3-3.2); Glucose 91 mg/dl (74-100); Total Protein,Serum 7.7 g/dl (6.3-8.2)
[2023-02-24 09:29] LABS: VBG Base Excess -1.9 mmol/L (-2.4-2.3); VBG HCO3 24.7 mmol/L (23-30); VBG Oxygen Saturation 74.1 % (50-70); VBG PH 7.29 mmol/L (7.31-7.41); VBG PO2 42.3 mmol/L (28-40); VBG Total CO2 26.3 mmol/L (23-27)
[2023-02-24 09:32] LABS: Troponin I < 0.01 ng/ml (0.00-0.034)
[2023-02-24 09:32] LABS: VBG PCO2 52.4 mmol/L (35-51)
--- NOTE | 2023-02-24 09:32 | PC.NURSE ---
received VBG results from RT. CUBA Simons notified
--- NOTE | 2023-02-24 09:32 | HMH.EDGENADL ---
Discharge Plan Disposition Patient Disposition: Home, Self-Care Chief Complaint: Shortness of Breath/Dyspnea Prescriptions Prescriptions: No Action mirtazapine 7.5 mg tablet 7.5 mg PO HS Patient Comments: TAKE 1 TABLET BY MOUTH AT BEDTIME levothyroxine 88 mcg tablet 88 mcg PO DAILY atorvastatin 40 mg tablet 40 mg PO DAILY Trelegy Ellipta 200-62.5-25 mcg blister with device 1 inh inhalation DAILY Patient Comments: INHALE 1 PUFF BY MOUTH ONCE DAILY- NEEDS TO BE SEEN FOR FURTHER REFILLS promethazine 12.5 mg tablet 12.5 mg PO TID PRN (Reason: nausea and vomiting) Qty: 20 0RF Vraylar 6 mg capsule 6 mg PO DAILY Qty: 90 0RF fluoxetine 20 mg tablet 20 mg PO DAILY Qty: 90 0RF gabapentin 800 mg tablet 800 mg PO QID Qty: 120 0RF quetiapine 25 mg tablet 25 mg PO HS Patient Comments: TAKE 1 TO 2 TABLETS BY MOUTH AT BEDTIME oxycodone-acetaminophen [Percocet] 5-325 mg tablet 1 tab PO BID hydroxyzine pamoate [Vistaril] 25 mg capsule 25 mg PO Q6H PRN (Reason: anxiety) Qty: 30 0RF trazodone 50 mg tablet 50 mg PO HS Patient Comments: TAKE 1 TABLET BY MOUTH AT BEDTIME methocarbamol 750 mg tablet 750 mg PO TID Patient Comments: TAKE 1 TABLET BY MOUTH THREE TIMES DAILY ergocalciferol (vitamin D2) 1,250 mcg (50,000 unit) Capsule 50,000 unit PO WEEKLY 30 Days Qty: 4 0RF nicotine 21 mg/24 hr Patch 24 Hour 21 mg transdermal DAILY 28 Days Qty: 28 1RF levofloxacin 750 mg tablet 750 mg PO DAILY 2 Days Qty: 2 0RF multivitamin [Daily Multi-Vitamin] Tablet 1 tab PO DAILY 30 Days Qty: 30 0RF Rx Instructions: take OTC multivitamin pantoprazole 40 mg tablet,delayed release (DR/EC) 40 mg PO DAILY 30 Days Qty: 30 0RF Referrals Follow up/Referrals: Sukumar Jiménez MD [Primary Care Provider] - See instructions Activity Restrictions/Add. Instructions Additional Instructions/Restrictions: Talk to Dr. Jiménez about starting an SSRI, antidepressant, for anxiety symptoms. Take hydroxyzine as needed for symptoms. Call your family doctor to establish care for this visit to the emergency department and schedule follow-up within 48 hours to ensure improvement. If you have any worsening of your condition or any other concerning signs or symptoms, return to the emergency department or your primary care doctor for further evaluation. Clinical Impressions Clinical Impression: Shortness of breath, Anxiety Discharge ED Provider: Luther Cade General Adult HPI General Chief complaint: Shortness of Breath/Dyspnea Stated complaint: SOA, hands drawing, Time Seen by Provider: 02/24/23 08:50 Mode of Arrival: Family Vehicle Source of Information: Patient Limitations: No Limitations Description of Symptoms (Recalled from ER Triage Doc. by RN): 62 yo female presents with CC of shortness of air and hands drawing up . According to patient acute onset of dyspnea accompanied by 'muscle contractions in my hands' began at 0400 this date. Family member reports that this is actually the 2nd episode in the last two days and that the other one she just got past it without treatment. Patient is a &o 4. VSS. EMV 15. Further elaborates she is out of her anti-anxiety medications and is acutely anxious. History of Present Illness HPI narrative: 62-year-old female with history of hypertension, hyperlipidemia, COPD still currently smoking on 2 L nasal cannula at home as needed presenting with shortness of breath and hands drawing up. Patient states that she woke up around 4 AM today, 02/24. [place] short of breath, hands started drawing up and cramping. Denies palpitations, chest pain, nausea or vomiting, but is anxious about the situation, so came to the emergency department. Patient was seen by me earlier this month, states that she did not finish her amoxicillin prescription and has not been taking as needed hydroxyzine. Has also not be
--- NOTE | 2023-02-24 09:33 | PC.NURSE ---
Second set of cultures collected and sent to lab
[2023-02-24 09:34] VITALS: BP 135/82; PULSE 80; RESP 19; O2SAT 94
[2023-02-24 09:50] LABS: D-Dimer 0.98 ug/mL (0.0-0.5)
[2023-02-24 10:00] VITALS: BP 143/89; PULSE 76; RESP 17; O2SAT 98
--- NOTE | 2023-02-24 10:14 | CT_ITS ---
PROCEDURE INFORMATION: Exam: CTA Chest With Contrast Exam date and time: 02/24/2023 10:28 AM Age: 62 years old Clinical indication: Shortness of breath; Additional info: Elevated dimer, acute SOA, normal vbg TECHNIQUE: Imaging protocol: Computed tomographic angiography of the chest with contrast. Exam focused on the arteries. 3D rendering (Not supervised by radiologist): MIP and/or 3D reconstructed images were created by the technologist. Radiation optimization: All CT scans at this facility use at least one of these dose optimization techniques: automated exposure control; mA and/or kV adjustment per patient size (includes targeted exams where dose is matched to clinical indication); or iterative reconstruction. Contrast material: ISOVUE 370; Contrast volume: 70 ml; Contrast route: INTRAVENOUS (IV); REPORTING DATA: Count of CT and Cardiac NM exams in prior 12 months: This patient has received 2 known CTs and 0 known cardiac nuclear medicine studies in the 12 months prior to the current study. COMPARISON: CT ANGIO CHEST PE PROTOCOL 02/09/2023 9:34 AM FINDINGS: Pulmonary arteries: Normal. No pulmonary emboli. Aorta: Unremarkable. No aortic aneurysm. No aortic dissection. Lungs: There is lower lobe, lingular and right middle lobe atelectasis. Upper lobe emphysematous change is present. A 4 mm pleural-based nodule is noted along the lingular convexity on series 5, image 72. Pleural spaces: Unremarkable. No pneumothorax. No pleural effusion. Heart: Unremarkable. No cardiomegaly. No pericardial effusion. Lymph nodes: Unremarkable. No enlarged lymph nodes. Bones/joints: Unremarkable. No acute fracture. Soft tissues: Incompletely imaged in the upper abdomen there is a hypodense lesion in the left hepatic lobe measuring at least 18 x 14 mm. IMPRESSION: No evidence for pulmonary embolism. Basilar atelectasis. Small pulmonary nodule. Indeterminate incompletely imaged 18 mm left hepatic lesion. Suggest MRI of the abdomen with and without intravenous contrast to further assess. Recommend follow-up CT Chest in 6-12 months. (References: Andrez and Orlin) References: Andrez Todd, et al. Guidelines for Management of Incidental Pulmonary Nodules Detected on CT Images: From the Fleischner Society 2017. Radiology. 2017;284(1):228-243. References: Orlin J, et al. Updated Fleischner Society Guidelines for Managing Incidental Pulmonary Nodules: Common Questions and Challenging Scenarios. Radiographics. 2018;38(5):2101-7730. COMMENTS: In the absence of a history or active diagnosis of lung cancer, it is recommended that this patient with emphysema be evaluated for enrollment in a low dose CT lung cancer screening program.
--- NOTE | 2023-02-24 10:31 | PC.NURSE ---
Pt returned to room from RAD via wheelchair
[2023-02-24 10:33] VITALS: BP 144/61; PULSE 33; RESP 16; O2SAT 96
--- NOTE | 2023-02-24 11:17 | PC.NURSE ---
Second trop drawn by Ebonie Dyson RN and sent to LAB
[2023-02-24 11:54] LABS: Troponin I < 0.01 ng/ml (0.00-0.034)
--- NOTE | 2023-02-24 12:12 | PC.NURSE ---
Pt requested something for pain. Dr. Cade notified.
[2023-02-24 12:17] VITALS: BP 134/86; PULSE 65; RESP 18; TEMP 36.8; O2SAT 98
--- NOTE | 2023-02-24 12:19 | PC.NURSE ---
pt adamant she needs something else for pain. discussed POC with patient established by MD discharge education per charge nurse curry Huerta
== END 2023-02-24 12:25 | disposition home or self-care (01) ==
PROVIDERS: Emergency Provider Emergency Medicine; PCP Emergency Medicine
DX: J44.1 Chronic obstructive pulmonary disease with (acute) exacerbation (principal); F17.210 Nicotine dependence, cigarettes, uncomplicated; R06.02 Shortness of breath; F41.9 Anxiety disorder, unspecified; I10 Essential (primary) hypertension; E78.5 Hyperlipidemia, unspecified
CPT/HCPCS: 71045; 71275; 80053; 82803; 84484; 85025; 85378; 87040; 93005; 99285; Q9967

== ENCOUNTER 2023-02-24 18:22 | Emergency (ER) | payer MEDICAID, SELFPAY ==
[2023-02-24 18:24] VITALS: BP 135/80; PULSE 85; RESP 18; TEMP 36.4; O2SAT 91; BMI 28.8
--- NOTE | 2023-02-24 18:42 | HMH.EDGENADL ---
Discharge Plan Disposition Patient Disposition: Home, Self-Care Prescriptions Prescriptions: New ondansetron 4 mg tablet,disintegrating 4 mg PO Q6H PRN (Reason: nausea and vomiting) 5 Days Qty: 20 0RF No Action mirtazapine 7.5 mg tablet 7.5 mg PO HS Patient Comments: TAKE 1 TABLET BY MOUTH AT BEDTIME levothyroxine 88 mcg tablet 88 mcg PO DAILY atorvastatin 40 mg tablet 40 mg PO DAILY Trelegy Ellipta 200-62.5-25 mcg blister with device 1 inh inhalation DAILY Patient Comments: INHALE 1 PUFF BY MOUTH ONCE DAILY- NEEDS TO BE SEEN FOR FURTHER REFILLS promethazine 12.5 mg tablet 12.5 mg PO TID PRN (Reason: nausea and vomiting) Qty: 20 0RF Vraylar 6 mg capsule 6 mg PO DAILY Qty: 90 0RF fluoxetine 20 mg tablet 20 mg PO DAILY Qty: 90 0RF gabapentin 800 mg tablet 800 mg PO QID Qty: 120 0RF quetiapine 25 mg tablet 25 mg PO HS Patient Comments: TAKE 1 TO 2 TABLETS BY MOUTH AT BEDTIME oxycodone-acetaminophen [Percocet] 5-325 mg tablet 1 tab PO BID hydroxyzine pamoate [Vistaril] 25 mg capsule 25 mg PO Q6H PRN (Reason: anxiety) Qty: 30 0RF trazodone 50 mg tablet 50 mg PO HS Patient Comments: TAKE 1 TABLET BY MOUTH AT BEDTIME methocarbamol 750 mg tablet 750 mg PO TID Patient Comments: TAKE 1 TABLET BY MOUTH THREE TIMES DAILY ergocalciferol (vitamin D2) 1,250 mcg (50,000 unit) Capsule 50,000 unit PO WEEKLY 30 Days Qty: 4 0RF nicotine 21 mg/24 hr Patch 24 Hour 21 mg transdermal DAILY 28 Days Qty: 28 1RF levofloxacin 750 mg tablet 750 mg PO DAILY 2 Days Qty: 2 0RF multivitamin [Daily Multi-Vitamin] Tablet 1 tab PO DAILY 30 Days Qty: 30 0RF Rx Instructions: take OTC multivitamin pantoprazole 40 mg tablet,delayed release (DR/EC) 40 mg PO DAILY 30 Days Qty: 30 0RF Referrals Follow up/Referrals: Sukumar Jiménez MD [Primary Care Provider] - See instructions Activity Restrictions/Add. Instructions Additional Instructions/Restrictions: Please follow-up with Dr. Jessy within the next few days to discuss your chronic electrolyte disturbances. Please continue to drink fluids by mouth which contain electrolytes and return to the emergency department with any inability to tolerate fluids by mouth or other concerns. Clinical Impressions Clinical Impression: Carpopedal spasm, Hypocalcemia, Hypomagnesemia, Hypokalemia Instructions Patient Instructions: DI for Diarrhea and Traveler's Diarrhea -- Adult, DI for Diarrhea and Traveler's Diarrhea -- Child, DI for Nausea -- Adult, DI for Nausea -- Child Discharge ED Provider: Ela Mack General Adult HPI General Chief complaint: Nausea/Vomiting/Diarrhea Stated complaint: nausea, arms and legs Time Seen by Provider: 02/24/23 18:27 Mode of Arrival: Wheelchair Source of Information: Patient Limitations: No Limitations Description of Symptoms (Recalled from ER Triage Doc. by RN): Pt reports symptoms not improving from previous ER visit this date. Pt reports nausea is worse and now having pain in abd. Pt reports tingling in blas hands and blas legs is not improving. Pt reports tingling began approx 0400 this morning. History of Present Illness HPI narrative: Patient is a 62-year-old female who is a bounce back from an emergency department visit earlier today where she had multiple complaints including peripheral paresthesias cramping and dyspnea. She had an extensive evaluation from a cardiopulmonary standpoint including negative troponins and a negative CTA of her chest. She was discharged with hydroxyzine and returns stating that she has worsening paresthesias in carpopedal spasms of the upper and lower extremities. She had a calcium level of 6.0 at that time and an albumin which was normal. She was recently admitted for electrolyte abnormalities just a few weeks ago with hypokalemia, potassium was normal earlier today. Related Data Home
[2023-02-24 18:58] LABS: Chloride 103 mmol/L (98-107); Sodium 142 mmol/L (136-145)
[2023-02-24 19:00] LABS: Alanine Aminotransferase 25 U/L (12-78); Alkaline Phosphatase 79 U/L (38-126); Aspartate Amino Transferase 30 U/L (14-36); Bilirubin,Total 0.3 mg/dl (0.2-1.3); Blood Urea Nitrogen 6 mg/dl (7-17); Creatinine Clearance Estimated 78 mL/min (50-200); Estimated Glomerular Filt Rate 125 ml/min (>60); GFR (African American) 152 ML/MIN (>60)
[2023-02-24 19:01] LABS: Albumin Level 4.1 g/dl (3.5-5.0); Albumin/Globulin Ratio 1.3 (1.1-1.8); Carbon Dioxide 33 mmol/L (22.0-30.0); Globulin 3.2 g/dL (1.3-3.2); Glucose 94 mg/dl (74-100); Phosphorous 4.2 mg/dl (2.5-4.5); Total Protein,Serum 7.3 g/dl (6.3-8.2)
[2023-02-24 19:04] LABS: Magnesium 0.4 mg/dl (1.6-2.3)
--- NOTE | 2023-02-24 19:05 | PC.NURSE ---
notified Dr. Mack of critical potassium and magnesium
[2023-02-24 19:06] VITALS: BP 128/103; PULSE 85; RESP 16; O2SAT 96
--- NOTE | 2023-02-24 19:06 | PC.NURSE ---
Rounded on pt. Pt provided with cool wash cloth for forehead. Call light placed within reach. No other needs voiced.
[2023-02-24 20:00] VITALS: BP 137/83; PULSE 84; O2SAT 96
[2023-02-24 20:30] VITALS: BP 124/56; PULSE 81; RESP 14; O2SAT 95
[2023-02-24 21:00] VITALS: BP 139/78; PULSE 83; RESP 16; O2SAT 96
[2023-02-24 22:39] VITALS: BP 142/89; PULSE 89; RESP 20; TEMP 36.8; O2SAT 93
== END 2023-02-24 23:14 | disposition home or self-care (01) ==
PROVIDERS: Emergency Provider Student in an Organized Health Care Education/Training Program; PCP Emergency Medicine
DX: R25.2 Cramp and spasm (principal); E83.52 Hypercalcemia
CPT/HCPCS: 80053; 83735; 84100; 99285; J3475

== ENCOUNTER 2023-02-28 08:59 | Emergency (ER) | payer MEDICAID, SELFPAY ==
[2023-02-28 09:04] VITALS: BP 143/82; PULSE 77; O2SAT 94
[2023-02-28 09:10] VITALS: BP 143/82; PULSE 84; RESP 16; TEMP 36.5; O2SAT 92; BMI 29.4
--- NOTE | 2023-02-28 09:11 | PC.NURSE ---
Dr. Pelaez at [facility] for pt eval
--- NOTE | 2023-02-28 09:12 | XR_ITS ---
FINAL REPORT CLINICAL HISTORY: COPD/Cough COMPARISON: 02/24/2023 FINDINGS: TWO-VIEW CHEST The heart size is normal. The mediastinum is normal. The lungs are hyperinflated consistent with COPD. There is no pneumothorax. IMPRESSION: MRIs COPD. Reviewed, Interpreted and Dictated by Jamie Barber III, MD Transcribed by Rosa Eagle [facility]hentic[facility] and [facility]
--- NOTE | 2023-02-28 09:14 | HMH.EDGENADL ---
Discharge Plan Disposition Patient Disposition: Home, Self-Care Prescriptions Prescriptions: New azithromycin 250 mg tablet 250 mg PO DAILY 4 Days Qty: 4 0RF Rx Instructions: start on 03/01 albuterol sulfate 90 mcg/actuation HFA aerosol inhaler 4 inh inhalation Q3H PRN (Reason: shortness of breath or wheezing) Qty: 6.7 0RF prednisone 50 mg tablet 50 mg PO DAILY 4 Days Qty: 4 0RF Rx Instructions: start on 03/01 No Action mirtazapine 7.5 mg tablet 7.5 mg PO HS Patient Comments: TAKE 1 TABLET BY MOUTH AT BEDTIME levothyroxine 88 mcg tablet 88 mcg PO DAILY atorvastatin 40 mg tablet 40 mg PO DAILY Trelegy Ellipta 200-62.5-25 mcg blister with device 1 inh inhalation DAILY Patient Comments: INHALE 1 PUFF BY MOUTH ONCE DAILY- NEEDS TO BE SEEN FOR FURTHER REFILLS promethazine 12.5 mg tablet 12.5 mg PO TID PRN (Reason: nausea and vomiting) Qty: 20 0RF Vraylar 6 mg capsule 6 mg PO DAILY Qty: 90 0RF fluoxetine 20 mg tablet 20 mg PO DAILY Qty: 90 0RF gabapentin 800 mg tablet 800 mg PO QID Qty: 120 0RF ondansetron 4 mg tablet,disintegrating 4 mg PO Q6H PRN (Reason: nausea and vomiting) 5 Days Qty: 20 0RF promethazine 25 mg tablet 25 mg PO TID PRN (Reason: nausea and vomiting) 5 Days Qty: 20 0RF quetiapine 25 mg tablet 25 mg PO HS Patient Comments: TAKE 1 TO 2 TABLETS BY MOUTH AT BEDTIME oxycodone-acetaminophen [Percocet] 5-325 mg tablet 1 tab PO BID hydroxyzine pamoate [Vistaril] 25 mg capsule 25 mg PO Q6H PRN (Reason: anxiety) Qty: 30 0RF trazodone 50 mg tablet 50 mg PO HS Patient Comments: TAKE 1 TABLET BY MOUTH AT BEDTIME methocarbamol 750 mg tablet 750 mg PO TID Patient Comments: TAKE 1 TABLET BY MOUTH THREE TIMES DAILY ergocalciferol (vitamin D2) 1,250 mcg (50,000 unit) Capsule 50,000 unit PO WEEKLY 30 Days Qty: 4 0RF nicotine 21 mg/24 hr Patch 24 Hour 21 mg transdermal DAILY 28 Days Qty: 28 1RF levofloxacin 750 mg tablet 750 mg PO DAILY 2 Days Qty: 2 0RF multivitamin [Daily Multi-Vitamin] Tablet 1 tab PO DAILY 30 Days Qty: 30 0RF Rx Instructions: take OTC multivitamin pantoprazole 40 mg tablet,delayed release (DR/EC) 40 mg PO DAILY 30 Days Qty: 30 0RF Referrals Follow up/Referrals: Sukumar Jiménez MD [Primary Care Provider] - See instructions Activity Restrictions/Add. Instructions Additional Instructions/Restrictions: At this time it was felt you are safe to be discharged home. If new or worsening symptoms please do not hesitate to return the emergency department. Please take your medications as prescribed and follow-up with your family doctor tomorrow as discussed. Clinical Impressions Clinical Impression: Acute exacerbation of chronic obstructive pulmonary disease Discharge ED Provider: Maynor Pelaez General Adult HPI General Chief complaint: Shortness of Breath/Dyspnea Stated complaint: SOA Time Seen by Provider: 02/28/23 09:08 Mode of Arrival: Wheelchair Source of Information: Patient Limitations: No Limitations Description of Symptoms (Recalled from ER Triage Doc. by RN): 62 yo F presents to ED with c/o shortness of air, symptoms began last night. pt reports cough but non productive. pt wears 2/5 liters at home of oxygen as needed. History of Present Illness HPI narrative: Patient is a 62-year-old female with past medical history of COPD on intermittent oxygen at home who presents emergency department for evaluation of shortness of breath and cough. Onset was acute, over the last 24 hours. Due to persistent symptoms of feeling as if something is in her chest that she cannot cough up she presents here for continued evaluation. Related Data Home Medications Medication Instructions Recorded Confirmed atorvastatin 40 mg tablet 40 mg PO DAILY High Cholesterol 01/02/23 02/09/23 fluticasone fur. 200 mcg-umeclid
--- NOTE | 2023-02-28 09:28 | ECG_ITS ---
APPROVED REPORT Exam: Resting ECG HR:69 bpm ECG Measurements Heart Rate 69 AXES HI 178 P 75 QRSd 88 QRS -68 QT 429 T 57 QTc 449 Conclusion SINUS RHYTHM INFERIOR MYOCARDIAL INFARCTION , PROBABLY OLD [40+ ms Q WAVE AND/OR ST/T ABNORMALITY IN II/aVF] ABNORMAL ECG UNCONFIRMED REPORT Electronically signed by : Brandon Mueller MD 02/28/2023 21:25:36
[2023-02-28 09:30] VITALS: BP 143/81; PULSE 75; O2SAT 99
[2023-02-28 09:48] LABS: Coronavirus 19, PCR Not Detected (NotDetected); Influenza A, PCR Not Detected (NotDetected); Influenza B, PCR Not Detected (NotDetected)
[2023-02-28 09:59] LABS: VBG Base Excess 3.3 mmol/L (-2.4-2.3); VBG Oxygen Saturation 76.7 % (50-70); VBG PH 7.34 mmol/L (7.31-7.41); VBG PO2 44.9 mmol/L (28-40); VBG Total CO2 30.7 mmol/L (23-27)
[2023-02-28 10:00] LABS: Chloride 104 mmol/L (98-107); Potassium 3.4 mmoL/L (3.5-5.1); Sodium 144 mmol/L (136-145)
[2023-02-28 10:02] LABS: Alanine Aminotransferase 24 U/L (12-78); Aspartate Amino Transferase 29 U/L (14-36); Blood Urea Nitrogen 5 mg/dl (7-17); Creatinine Clearance Estimated 80 mL/min (50-200); Estimated Glomerular Filt Rate 125 ml/min (>60); GFR (African American) 152 ML/MIN (>60)
[2023-02-28 10:03] LABS: Albumin Level 4.2 g/dl (3.5-5.0); Albumin/Globulin Ratio 1.3 (1.1-1.8); Alkaline Phosphatase 92 U/L (38-126); Anion Gap 10.4 mEq/L (5-15); Bilirubin,Total 0.4 mg/dl (0.2-1.3); Calcium 6.5 mg/dl (8.4-10.2); Carbon Dioxide 33 mmol/L (22.0-30.0); Globulin 3.2 g/dL (1.3-3.2); Glucose 112 mg/dl (74-100); Total Protein,Serum 7.4 g/dl (6.3-8.2)
[2023-02-28 10:05] LABS: VBG PCO2 54.9 mmol/L (35-51)
[2023-02-28 10:25] LABS: Troponin I < 0.01 ng/ml (0.00-0.034)
--- NOTE | 2023-02-28 10:35 | PC.NURSE ---
lab at for redraw cbc r/t hemolysis on first specimen
[2023-02-28 10:56] LABS: Basophils % 0.3 % (0.1-2.0); Eosinophils # 0.1 K/mm3 (0.0-0.4); Hematocrit 46.2 % (37.0-47.0); Lymphocytes # 3.5 K/mm3 (0.7-4.5); Lymphocytes % 29.9 % (10-50); Mean Corpuscular HGB Conc 34.6 g/dL (31.8-35.4); Mean Corpuscular Hemoglobin 30.5 pg (27.0-31.2); Mean Corpuscular Volume 88.1 fl (81-99); Mean Platelet Volume 8.5 fl (7.4-10.4); Monocytes # 0.5 K/mm3 (0.1-1.0); Monocytes % 3.9 % (1.7-9.3); Neutrophils # 7.6 K/mm3 (1.8-7.8); Neutrophils % 64.9 % (37.0-80.0); Platelet Count 192 K/mm3 (142-424); Red Blood Count 5.24 M/mm3 (4.20-5.40); Red Cell Distribution Width 15.5 % (11.5-17.5); White Blood Count 11.7 K/mm3 (4.8-10.8)
[2023-02-28 11:59] VITALS: BP 129/76; PULSE 87; RESP 18; TEMP 36.7; O2SAT 94
== END 2023-02-28 12:00 | disposition home or self-care (01) ==
PROVIDERS: Emergency Provider Emergency Medicine; PCP Emergency Medicine
DX: J44.1 Chronic obstructive pulmonary disease with (acute) exacerbation (principal); F17.210 Nicotine dependence, cigarettes, uncomplicated; I10 Essential (primary) hypertension; E78.5 Hyperlipidemia, unspecified
CPT/HCPCS: 36415; 71046; 80053; 82803; 84484; 85025; 87636; 93005

== ENCOUNTER 2023-02-28 18:48 | Inpatient (IN) | payer MEDICAID, SELFPAY ==
[2023-02-28] VITALS (8 sets, daily range): BP systolic 124–140; BP diastolic 73–85; PULSE 75–86; RESP 16–20; TEMP 36.3–36.7; O2SAT 92–97; BMI 29.4; BMI 29.2
--- NOTE | 2023-02-28 19:38 | HMH.EDGENADL ---
Discharge Plan Disposition Patient Disposition: Admitted Prescriptions Prescriptions: No Action mirtazapine 7.5 mg tablet 7.5 mg PO HS Patient Comments: TAKE 1 TABLET BY MOUTH AT BEDTIME levothyroxine 88 mcg tablet 88 mcg PO DAILY atorvastatin 40 mg tablet 40 mg PO DAILY Trelegy Ellipta 200-62.5-25 mcg blister with device 1 inh inhalation DAILY Patient Comments: INHALE 1 PUFF BY MOUTH ONCE DAILY- NEEDS TO BE SEEN FOR FURTHER REFILLS promethazine 12.5 mg tablet 12.5 mg PO TID PRN (Reason: nausea and vomiting) Qty: 20 0RF Vraylar 6 mg capsule 6 mg PO DAILY Qty: 90 0RF fluoxetine 20 mg tablet 20 mg PO DAILY Qty: 90 0RF gabapentin 800 mg tablet 800 mg PO QID Qty: 120 0RF ondansetron 4 mg tablet,disintegrating 4 mg PO Q6H PRN (Reason: nausea and vomiting) 5 Days Qty: 20 0RF promethazine 25 mg tablet 25 mg PO TID PRN (Reason: nausea and vomiting) 5 Days Qty: 20 0RF quetiapine 25 mg tablet 25 mg PO HS Patient Comments: TAKE 1 TO 2 TABLETS BY MOUTH AT BEDTIME oxycodone-acetaminophen [Percocet] 5-325 mg tablet 1 tab PO BID hydroxyzine pamoate [Vistaril] 25 mg capsule 25 mg PO Q6H PRN (Reason: anxiety) Qty: 30 0RF trazodone 50 mg tablet 50 mg PO HS Patient Comments: TAKE 1 TABLET BY MOUTH AT BEDTIME methocarbamol 750 mg tablet 750 mg PO TID Patient Comments: TAKE 1 TABLET BY MOUTH THREE TIMES DAILY ergocalciferol (vitamin D2) 1,250 mcg (50,000 unit) Capsule 50,000 unit PO WEEKLY 30 Days Qty: 4 0RF nicotine 21 mg/24 hr Patch 24 Hour 21 mg transdermal DAILY 28 Days Qty: 28 1RF levofloxacin 750 mg tablet 750 mg PO DAILY 2 Days Qty: 2 0RF multivitamin [Daily Multi-Vitamin] Tablet 1 tab PO DAILY 30 Days Qty: 30 0RF Rx Instructions: take OTC multivitamin pantoprazole 40 mg tablet,delayed release (DR/EC) 40 mg PO DAILY 30 Days Qty: 30 0RF azithromycin 250 mg tablet 250 mg PO DAILY 4 Days Qty: 4 0RF Rx Instructions: start on 03/01 albuterol sulfate 90 mcg/actuation HFA aerosol inhaler 4 inh inhalation Q3H PRN (Reason: shortness of breath or wheezing) Qty: 6.7 0RF prednisone 50 mg tablet 50 mg PO DAILY 4 Days Qty: 4 0RF Rx Instructions: start on 03/01 Referrals Follow up/Referrals: Sukumar Jiménez MD [Primary Care Provider] - See instructions Clinical Impressions Clinical Impression: Hypocalcemia, Hypokalemia, Muscle spasm, Hypomagnesemia Discharge ED Provider: Ela Mack General Adult HPI General Chief complaint: Weakness Stated complaint: numbness arms, legs head, , dizzy, SOA Time Seen by Provider: 02/28/23 19:34 Mode of Arrival: Wheelchair Source of Information: Patient Limitations: No Limitations Description of Symptoms (Recalled from ER Triage Doc. by RN): pt states was seen in er earlier today for SOA. pt c/o bilateral arms and legs numbness and HUGHES since 2pm. History of Present Illness HPI narrative: Patient is a 62-year-old female who has been frequenting the emergency department recently for severe electrolyte abnormalities and neuromuscular symptoms such as carpopedal spasms recently. She has had significant electrolyte abnormalities including potassium magnesium calcium etc. She was post to follow-up with her primary care doctor and she has not. This is her fourth emergency department visit in the last week. She states she was here a few hours ago she claims that she did not have any electrolyte replacement and her symptoms have only worsened. The symptoms she is describing is worsening her bilateral hands and arms numbness and spasming again. She has had some chronic dyspnea but has been worked up from a respiratory standpoint numerous times and this is unchanged from recent evaluations. No worsening cough fevers chills etc. Related Data Home Medications Medication Instructions Recorded Confirmed atorvastatin 4
[2023-02-28 19:45] LABS: Basophils % 0.1 % (0.1-2.0); Eosinophils # 0.1 K/mm3 (0.0-0.4); Eosinophils % 1.1 % (0.1-12.0); Hematocrit 45.9 % (37.0-47.0); Hemoglobin 15.6 g/dL (12.2-16.2); Lymphocytes # 0.8 K/mm3 (0.7-4.5); Lymphocytes % 9.7 % (10-50); Mean Corpuscular HGB Conc 33.9 g/dL (31.8-35.4); Mean Corpuscular Hemoglobin 29.9 pg (27.0-31.2); Mean Corpuscular Volume 88.2 fl (81-99); Mean Platelet Volume 8.3 fl (7.4-10.4); Monocytes # 0.1 K/mm3 (0.1-1.0); Monocytes % 1.3 % (1.7-9.3); Neutrophils % 87.8 % (37.0-80.0); Platelet Count 207 K/mm3 (142-424); Red Cell Distribution Width 15.4 % (11.5-17.5)
--- NOTE | 2023-02-28 19:46 | ECG_ITS ---
APPROVED REPORT Exam: Resting ECG HR:84 bpm ECG Measurements Heart Rate 84 AXES WV 154 P 79 QRSd 106 QRS -70 QT 362 T 64 QTc 403 Conclusion SINUS RHYTHM LEFT ATRIAL ENLARGEMENT [-0.1mV P-WAVE IN V1/V2] INCOMPLETE RIGHT BUNDLE BRANCH BLOCK LAD with LEFT ANTERIOR FASCICULAR BLOCK [QRS AXIS <= -45, QR IN I, RS IN II] POSSIBLE ANTERIOR MYOCARDIAL INFARCTION , PROBABLY OLD [30 ms Q WAVE IN V3/V4, OR R < 0.2 mV IN V4] ABNORMAL ECG UNCONFIRMED REPORT Electronically signed by : Brandno Mueller MD 03/01/2023 17:05:26
[2023-02-28 19:49] LABS: MANUAL DIFFERENTIAL MANUAL DIFFERENTIAL (MANUAL DIFF)
[2023-02-28 19:57] LABS: Alanine Aminotransferase 45 U/L (12-78); Albumin Level 4.2 g/dl (3.5-5.0); Albumin/Globulin Ratio 1.3 (1.1-1.8); Alkaline Phosphatase 82 U/L (38-126); Anion Gap 17.2 mEq/L (5-15); Aspartate Amino Transferase 44 U/L (14-36); Bilirubin,Total 0.3 mg/dl (0.2-1.3); Blood Urea Nitrogen 5 mg/dl (7-17); Calcium 6.7 mg/dl (8.4-10.2); Carbon Dioxide 27 mmol/L (22.0-30.0); Chloride 102 mmol/L (98-107); Creatinine Clearance Estimated 80 mL/min (50-200); Estimated Glomerular Filt Rate 125 ml/min (>60); GFR (African American) 152 ML/MIN (>60); Globulin 3.2 g/dL (1.3-3.2); Glucose 173 mg/dl (74-100); Phosphorous 4.6 mg/dl (2.5-4.5); Potassium 3.2 mmoL/L (3.5-5.1); Sodium 143 mmol/L (136-145); Total Protein,Serum 7.4 g/dl (6.3-8.2)
[2023-02-28 20:03] LABS: Lymphocytes % 13 % (10-50); Monocytes % 1 % (2-9); Neutrophils % 86 % (42-76); Platelet Estimate Normal; RBC Morphology Normal; Total Cells Counted 100
[2023-02-28 20:04] LABS: Magnesium 0.4 mg/dl (1.6-2.3)
--- NOTE | 2023-02-28 20:05 | PC.NURSE ---
notified critical mag 0.4
--- NOTE | 2023-02-28 20:17 | PC.NURSE ---
on phone with hospitalist
--- NOTE | 2023-02-28 20:19 | PC.NURSE ---
OBSERVATION ADMISSION TO TO SERVICE OF THE HOSPITALIST WITH DX OF HYPOKALEMIA, HYPOCALCEMIA.
--- NOTE | 2023-02-28 20:21 | PC.NURSE ---
bunk house worker notified of admission
--- NOTE | 2023-02-28 21:01 | EXP.HP ---
History of Present Illness *Admission Date: 02/28/23 *Reason for visit:: can't breath *History of present illness: This is a 62-year-old female with PMHx of diverticulitis, hypertension, hyperlipidemia, COPD on intermittent nasal cannula oxygen, current tobacco use presenting with multiples complains including neuromuscular symptoms and difficulty breathing. Patient was admitted recently for diverticulitis and inability to tolerate p.o. after been diagnosed with pneumonia 02/04. At that time she reported several diarrhea after initiated oral antibiotic. Since then patient had been returning to ER, several times for evaluation, has not been followed up with her PCP. This time she also reported difficult breathing with increased SOB She has not been vomiting a lot but has had dry heaves. Admitted for treatment and management. [facility] Disclaimer: The information contained in this section may have been updated after the patient was seen, as this information can be updated by other users. Medical History (Updated 03/01/23 @ 06:13 by Curry Rice APRN) COPD (chronic obstructive pulmonary disease) Hyperlipidemia Hypertension Social History (Updated 02/28/23 @ 21:43 by Aniyah Ward RN) Smoking Status: Former smoker alcohol intake: former current occupational status: unemployed Travel in the last 8 weeks: None Review of Systems Review of Systems Review of systems:: pertinent systems reviewed and negative unless documented below Meds Home Medications and Allergies Home Medications Medication Instructions Recorded Confirmed Type atorvastatin 40 mg tablet 40 mg PO DAILY High Cholesterol 01/02/23 02/28/23 History fluticasone fur. 200 mcg-umeclid 1 inh inhalation DAILY Copd 01/02/23 02/28/23 History 62.5 mcg-vilant 25 mcg inhalat.powder (Trelegy Ellipta) levothyroxine 88 mcg tablet 88 mcg PO DAILY hypothyroidism 01/02/23 02/28/23 History mirtazapine 7.5 mg tablet 7.5 mg PO HS Anxiety 01/02/23 02/28/23 History hydroxyzine pamoate 25 mg capsule 25 mg PO Q6H PRN anxiety #30 caps 02/04/23 02/28/23 Rx (Vistaril) oxycodone-acetaminophen 5 mg-325 1 tab PO BID chronic pain 02/04/23 02/28/23 History mg tablet (Percocet) methocarbamol 750 mg tablet 750 mg PO TID muscle spasms 02/09/23 02/28/23 History ergocalciferol (vitamin D2) 1,250 50,000 unit PO WEEKLY 30 days #4 02/10/23 02/28/23 Rx mcg (50,000 unit) capsule caps multivitamin (Daily Multi-Vitamin 1 tab PO DAILY 30 days #30 tabs 02/10/23 02/28/23 Rx tablet) cariprazine 6 mg capsule (Vraylar) 6 mg PO DAILY #90 caps 02/15/23 02/28/23 Rx fluoxetine 20 mg tablet 20 mg PO DAILY Depression #90 tabs 02/15/23 02/28/23 Rx gabapentin 800 mg tablet 800 mg PO QID neuropathy #120 tabs 02/15/23 02/28/23 Rx albuterol sulfate 90 mcg/actuation 4 inh inhalation Q3H PRN shortness 02/28/23 02/28/23 Rx aerosol inhaler of breath or wheezing #6.7 grams ferrous sulfate 325 mg (65 mg 325 mg PO BID 03/01/23 03/01/23 History iron) tablet,delayed release nicotine 21 mg/24 hr daily 21 mg transdermal DAILY 03/01/23 03/01/23 History transdermal patch omeprazole 20 mg capsule,delayed 40 mg PO DAILY 03/01/23 03/01/23 History release quetiapine 25 mg tablet 25 - 50 mg PO HS 03/01/23 03/01/23 History New Prescriptions to Start Prescriptions: Allergies Allergy/AdvReac Type Severity Reaction Status Date / Time No Known Allergies Allergy Unverified 01/02/23 08:13 Exam Data for Last 24 hours Vital signs and Labs for Last 24 Hours: Temp Pulse Resp BP Pulse Ox O2 Del Method O2 Flow Rate 98 F 81 18 139/74 96 Nasal Cannula 2 02/28/23 20:46 02/28/23 20:46 02/28/23 20:46 02/28/23 20:46 02/28/23 20:30 02/28/23 20:46 02/28/23 20:46 Laboratory Results - last 24 hr 02/28/23 19:35: WBC 8.0 D, RBC 5.20, Hgb 15.6, Hct 45.9, MCV 88.2, MCH 29.9, MCHC 33.9, RDW 15.4, Plt Count 207, MPV 8.3, Neut % (Auto) 87.8 H, Lymph % (Auto) 9.7 L, [place] % (Auto) 1.
--- NOTE | 2023-02-28 21:22 | PC.NURSE ---
PT ARRIVED TO THE FLOOR @21:07 VIA STRETCHER
[2023-03-01] VITALS (8 sets, daily range): BP systolic 127–158; BP diastolic 49–77; PULSE 60–100; RESP 17–24; TEMP 36.4–36.7; O2SAT 93–97; BMI 29.4; BMI 29.3
--- NOTE | 2023-03-01 04:14 | PC.NURSE ---
Pt is alert and oriented x4, currently on 3L of O2 and has complained of SOB multiple times that seem to get better with neb treatments. Pt has complained of pain multiple times this shift, pain medications have been given to treat pain however they dont seem to last long enough. Pt states she is worried and has anxiety about hospital stay.
[2023-03-01 07:24] LABS: Basophils % 0.2 % (0.1-2.0); Eosinophils % 0.3 % (0.1-12.0); Hematocrit 41.2 % (37.0-47.0); Hemoglobin 14.1 g/dL (12.2-16.2); Lymphocytes # 2.2 K/mm3 (0.7-4.5); Lymphocytes % 19.4 % (10-50); Mean Corpuscular HGB Conc 34.2 g/dL (31.8-35.4); Mean Corpuscular Hemoglobin 30.1 pg (27.0-31.2); Mean Corpuscular Volume 87.8 fl (81-99); Mean Platelet Volume 8.4 fl (7.4-10.4); Monocytes # 0.8 K/mm3 (0.1-1.0); Monocytes % 6.9 % (1.7-9.3); Neutrophils # 8.3 K/mm3 (1.8-7.8); Neutrophils % 73.3 % (37.0-80.0); Platelet Count 196 K/mm3 (142-424); Red Cell Distribution Width 15.8 % (11.5-17.5); White Blood Count 11.3 K/mm3 (4.8-10.8)
[2023-03-01 07:25] LABS: Chloride 108 mmol/L (98-107)
[2023-03-01 07:26] LABS: Sodium 142 mmol/L (136-145)
[2023-03-01 07:28] LABS: Alanine Aminotransferase 24 U/L (12-78); Albumin Level 3.6 g/dl (3.5-5.0); Albumin/Globulin Ratio 1.2 (1.1-1.8); Alkaline Phosphatase 78 U/L (38-126); Anion Gap 6.9 mEq/L (5-15); Aspartate Amino Transferase 30 U/L (14-36); Bilirubin,Total 0.2 mg/dl (0.2-1.3); Blood Urea Nitrogen 5 mg/dl (7-17); Calcium 6.7 mg/dl (8.4-10.2); Carbon Dioxide 30 mmol/L (22.0-30.0); Creatinine Clearance Estimated 79 mL/min (50-200); Estimated Glomerular Filt Rate 162 ml/min (>60); GFR (African American) 196 ML/MIN (>60); Globulin 2.9 g/dL (1.3-3.2); Glucose 104 mg/dl (74-100); Total Protein,Serum 6.5 g/dl (6.3-8.2)
[2023-03-01 07:38] LABS: Potassium 2.9 mmoL/L (3.5-5.1)
--- NOTE | 2023-03-01 08:16 | HMH.PHAINT1 ---
Pharmacy Intervention Comments: home medication list verified using list from outpatient pharmacy
--- NOTE | 2023-03-01 09:40 | HMH.OTEV ---
OT Inpatient Evaluation Rehab OT IP Evaluation Start: 03/01/23 08:23 Freq: ONCE Status: Active Protocol: Document 03/01/23 09:28 TYESHA (Rec: 03/01/23 09:32 [id number] Rehab OT IP Assessment Subjective History Pt oriented x 4 on arrival. Pt agreeable to engage in therapy evaluation. Pt admitted via ED on 02/28/23. Pt is a 62-year-old female with PMHx of diverticulitis, hypertension, hyperlipidemia, COPD on intermittent nasal cannula oxygen, current tobacco use presenting with multiples complaints including neuromuscular symptoms and difficulty breathing. Patient was admitted recently for diverticulitis and inability to tolerate p.o. after been diagnosed with pneumonia 02/04 . She reported several diarrhea after initiated oral antibiotic. Since then patient had been returning to ER, several times for evaluation, has not been followed up with her PCP. She also reported difficult breathing with increased SOB She has not been vomiting a lot but has had dry heaves. Admitted for treatment and management. Prior to being in the hospital , pt claims she lives with a friend. She also reports normally she is independent with all ADLs and IADLs. She does use a cane during functional mobility tasks to increase safety. She also still drives. Subjective I seem to be feeling a little better. Objective Patient Orientation Person,Place,Birthday,Month Upper Extremity Gross ROM WNL Bed Mobility bed mobility-scooting,bed mobility - supine/sit,bed mobility - rolling Assist Level Supervision/Stand by Transfer Training Sit/Stand Transfe
[2023-03-01 09:55] LABS: Magnesium 1.4 mg/dl (1.6-2.3)
[2023-03-01 11:06] LABS: Chloride 107 mmol/L (98-107); Potassium 3.2 mmoL/L (3.5-5.1); Sodium 141 mmol/L (136-145)
[2023-03-01 11:08] LABS: Blood Urea Nitrogen 5 mg/dl (7-17); Creatinine Clearance Estimated 79 mL/min (50-200); Estimated Glomerular Filt Rate 125 ml/min (>60); GFR (African American) 152 ML/MIN (>60)
[2023-03-01 11:09] LABS: Alanine Aminotransferase 29 U/L (12-78); Albumin Level 3.8 g/dl (3.5-5.0); Albumin/Globulin Ratio 1.3 (1.1-1.8); Alkaline Phosphatase 83 U/L (38-126); Anion Gap 7.2 mEq/L (5-15); Aspartate Amino Transferase 35 U/L (14-36); Bilirubin,Total 0.2 mg/dl (0.2-1.3); Carbon Dioxide 30 mmol/L (22.0-30.0); Globulin 2.9 g/dL (1.3-3.2); Glucose 99 mg/dl (74-100); Magnesium 2.3 mg/dl (1.6-2.3); Total Protein,Serum 6.7 g/dl (6.3-8.2)
--- NOTE | 2023-03-01 11:17 | PC.NURSE ---
courtesy tech note: pt ambulates with standby assistance to the restroom and back. A soda was given upon requests=.
[2023-03-01 11:41] LABS: Thyroid Stimulating Hormone 2.72 uIU/mL (0.465-4.68)
[2023-03-01 12:04] LABS: Hemoglobin A1C 5.7 % (4.0-6.0)
--- NOTE | 2023-03-01 12:18 | HMH.PTEV ---
Physical Therapy Evaluation Rehab PT IP Evaluation Start: 03/01/23 08:23 Freq: ONCE Status: Active Protocol: Document 03/01/23 12:08 KIRK (Rec: 03/01/23 12:17 PHOJUNI [id number]) Subjective/History History History [address] [facility] with hypokalemia and hypocalcemia. She has PMH of diverticulitis, HTN, HLD, COPD. SHe reports she lives with SO, no steps to enter the home, and she is generally independent with all mobility at baseline. Subjective Subjective Pt has no current c/o. Feeling much better overall. New diagnosis of cancer in past 12 No months? Rehab PT IP Eval Objective Appearance Patient Behavior Appropriate Patient Orientation Person,Place,Time Difficulty following instructions none Speech Pattern Clear Ambulation Patient Able to Ambulate Yes Ambulation Observation IP General Gait Pattern Observation No Deviations/Normal Ambulation Distance (feet) 40 Ambulation Assistive Device None Ambulation Ability Independent Balance Ability to Arise Able, uses arms to help Sitting Balance Steady, safe Standing Balance Steady, wide stance Dynamic Sitting Balance Ability Good Dynamic Standing Balance Ability Good Transfers Bed Transfer Ability Independent Chair Transfer Ability Independent Sit to Stand Bed Transfer Ability Independent Sit to Stand Chair Transfer Ability Independent ROM All Extremities PT ROM Status WFL MMT All Extremities PT MMT WFL Rehab PT IP prob,goals,plan Problems Date of Evaluation: 03/01/23 Discharge Plan PT Discharge Plan Pt is at baseline for all mobility currently and is appropriate to return home once medically stable for d/c. Recommend Home Health therapy services after d/c. Eval Complexity Eval Charge Codes 75283 - High Complexity PHYSICIAN CERTIFICATION: I certify the specified therapy services for Tuyet Mendez are required, authorized, and reviewed every 30 days.
--- NOTE | 2023-03-01 12:39 | US_ITS ---
FINAL REPORT CLINICAL HISTORY: eval architecture FINDINGS: The right kidney measures 10.7 cm in length. It is normal in echogenicity. There is no hydronephrosis. The left kidney measures 10.7 cm in length. It is normal in echogenicity. There is no hydronephrosis. The spleen is unremarkable. IMPRESSION: Normal renal ultrasound. Reviewed, Interpreted and Dictated by Jamie Barber III, MD Transcribed by Rosa Eagle Authenticated and . [facility]
--- NOTE | 2023-03-01 12:39 | EXP.ACUTE.PN ---
Subjective *Date: 03/01/23 *Time: 14:36 Interval history: Patient still feels somewhat short of breath, stable on 3 L. Has been wearing oxygen intermittently for the past year. Denies any chest pain or nausea or vomiting. Starting to have urine output, reports she has not peed in the past day or 2. Does report that she has had intermittent diarrhea for the past few months. Does not report a history of previous electrolyte disturbances through early adulthood or prior to the past few months. Medication changes in the past few months includes cessation of Seroquel, addition of hydroxyzine, and start of Vraylar within the past 6 months. Has been admitted to other institutions for similar presentation. Will obtain records from [place] regarding admission in July for similar electrolyte disturbances. Medical Exam Vital signs and Labs for Last 24 Hours: Vital Signs Temp Pulse Pulse Resp BP BP Pulse Ox 03/01/23 10:50 03/01/23 08:00 96 03/01/23 09:00 03/01/23 08:00 97.6 F 89 24 158/67 H 95 03/01/23 06:31 03/01/23 05:00 03/01/23 04:00 100 H 03/01/23 00:00 80 03/01/23 04:00 97.9 F 97 H 18 136/63 97 03/01/23 03:00 03/01/23 04:17 80 03/01/23 04:17 98 H 03/01/23 00:00 97.5 F L 90 18 135/73 93 L 03/01/23 00:59 03/01/23 00:00 95 02/28/23 22:00 93 L 02/28/23 23:00 02/28/23 21:00 02/28/23 22:37 75 02/28/23 22:37 80 02/28/23 22:37 92 L 02/28/23 21:36 97.4 F L 85 18 139/85 93 L 02/28/23 20:46 98 F 81 18 139/74 02/28/23 20:30 76 18 139/74 96 02/28/23 20:00 86 20 124/73 94 L 02/28/23 19:00 86 135/75 97 02/28/23 18:49 98.0 F 86 16 140/73 96 O2 Del Method O2 Flow Rate 03/01/23 10:50 Nasal Cannula 3 03/01/23 08:00 Nasal Cannula 3 03/01/23 09:00 Nasal Cannula 3 03/01/23 08:00 Nasal Cannula 03/01/23 06:31 Nasal Cannula 3 03/01/23 05:00 Nasal Cannula 3 03/01/23 04:00 03/01/23 00:00 03/01/23 04:00 Nasal Cannula 2 03/01/23 03:00 Nasal Cannula 3 03/01/23 04:17 03/01/23 04:17 03/01/23 00:00 Nasal Cannula 3 03/01/23 00:59 Nasal Cannula 3 03/01/23 00:00 Nasal Cannula 3 02/28/23 22:00 Nasal Cannula 3 02/28/23 23:00 Nasal Cannula 3 02/28/23 21:00 Nasal Cannula 3 02/28/23 22:37 02/28/23 22:37 02/28/23 22:37 Nasal Cannula 3 02/28/23 21:36 Nasal Cannula 2 02/28/23 20:46 Nasal Cannula 2 02/28/23 20:30 Nasal Cannula 02/28/23 20:00 Nasal Cannula 02/28/23 19:00 Room Air 02/28/23 18:49 Intake and Output 02/28/23 03/01/23 03/01/23 23:59 07:59 15:59 Intake Total 683 / 953 270 / 953 Output Total 0 / 0 0 / 0 Balance 683 / 953 270 / 953 Intake: Intake, Oral Amount 270 / 270 Intake, Total IV Amount 683 / 683 Lactated Ringers 1000ML 1,000 683 / 683 ml @ 999 mls/hr IV .Q1H1M [facility] Rx#:[id number] Output: Output, Urine Amount 0 / 0 0 / 0 Other: Number of Voids 0 Number of Unmeasured Voids 1 Number of Bowel Movements 1 Weight 84.368 kg 84.935 kg Patient Weight 03/01/23 23:59 Weight 84.935 kg Laboratory Results - last 24 hr 02/28/23 19:35: WBC 8.0 D, RBC 5.20, Hgb 15.6, Hct 45.9, MCV 88.2, MCH 29.9, MCHC 33.9, RDW 15.4, Plt Count 207, MPV 8.3, Neut % (Auto) 87.8 H, Lymph % (Auto) 9.7 L, [place] % (Auto) 1.3 L, Eos % (Auto) 1.1, Baso % (Auto) 0.1, Neut # (Auto) 7.0, Lymph # (Auto) 0.8, [place] # (Auto) 0.1, Eos # (Auto) 0.1, Baso # (Auto) 0.0, Total Counted 100, Neutrophils % (Manual) 86 H, Lymphocytes % (Manual) 13, Monocytes % (Manual) 1 L, Platelet Estimate Normal, RBC Morphology Normal, Sodium 143, Potassium 3.2 L, Chloride 102, Carbon Dioxide 27, Anion Gap 17.2 H, BUN 5 L, Creatinine 0.50 L, Estimated Creat Clear 80, Estimated GFR 125, Est GFR ( Amer) 152, Glucose 173 H D, Calcium 6.7 L, Phosphorus 4.6 H, Magnesi
[2023-03-01 15:43] LABS: Intact Parathyroid Hormone 77.4 pg/mL (7.5-53.5)
[2023-03-01 16:57] LABS: Chloride 105 mmol/L (98-107); Sodium 141 mmol/L (136-145)
[2023-03-01 16:58] LABS: Potassium 3.3 mmoL/L (3.5-5.1)
[2023-03-01 17:00] LABS: Alanine Aminotransferase 20 U/L (12-78); Albumin Level 3.8 g/dl (3.5-5.0); Albumin/Globulin Ratio 1.4 (1.1-1.8); Alkaline Phosphatase 92 U/L (38-126); Anion Gap 7.3 mEq/L (5-15); Aspartate Amino Transferase 31 U/L (14-36); Bilirubin,Total 0.3 mg/dl (0.2-1.3); Blood Urea Nitrogen 5 mg/dl (7-17); Calcium 6.8 mg/dl (8.4-10.2); Carbon Dioxide 32 mmol/L (22.0-30.0); Creatinine Clearance Estimated 79 mL/min (50-200); Estimated Glomerular Filt Rate 102 ml/min (>60); GFR (African American) 123 ML/MIN (>60); Globulin 2.8 g/dL (1.3-3.2); Glucose 94 mg/dl (74-100); Total Protein,Serum 6.6 g/dl (6.3-8.2)
[2023-03-01 17:01] LABS: Magnesium 2.7 mg/dl (1.6-2.3)
[2023-03-01 22:13] LABS: Chloride 107 mmol/L (98-107); Potassium 3.3 mmoL/L (3.5-5.1); Sodium 140 mmol/L (136-145)
[2023-03-01 22:15] LABS: Blood Urea Nitrogen 5 mg/dl (7-17); Creatinine Clearance Estimated 79 mL/min (50-200); Estimated Glomerular Filt Rate 102 ml/min (>60); GFR (African American) 123 ML/MIN (>60)
[2023-03-01 22:16] LABS: Alanine Aminotransferase 21 U/L (12-78); Albumin Level 3.4 g/dl (3.5-5.0); Albumin/Globulin Ratio 1.3 (1.1-1.8); Alkaline Phosphatase 68 U/L (38-126); Anion Gap 7.3 mEq/L (5-15); Aspartate Amino Transferase 34 U/L (14-36); Bilirubin,Total 0.2 mg/dl (0.2-1.3); Calcium 7.3 mg/dl (8.4-10.2); Carbon Dioxide 29 mmol/L (22.0-30.0); Globulin 2.7 g/dL (1.3-3.2); Glucose 113 mg/dl (74-100); Magnesium 2.1 mg/dl (1.6-2.3); Total Protein,Serum 6.1 g/dl (6.3-8.2)
[2023-03-02] VITALS (13 sets, daily range): BP systolic 124–175; BP diastolic 66–94; PULSE 62–88; RESP 16–19; TEMP 36.4–36.8; O2SAT 87–97; BMI 29.9
--- NOTE | 2023-03-02 05:49 | PC.NURSE ---
24 HR URINE WILL BE COMPLETE AT 1030 THIS AM. PATIENT HAS RESTED WELL. NO COMPLAINTS OF PAIN. REPORTED SOME SOA EARLIER ON EXERTION. 02 SATS ON 3LNC 97%. PERCOCET SCHEDULED IS EFFECTIVE FOR CONTROL OF MUSCLE SPASMS.
[2023-03-02 08:10] LABS: Chloride 109 mmol/L (98-107); Potassium 3.6 mmoL/L (3.5-5.1); Sodium 144 mmol/L (136-145)
[2023-03-02 08:13] LABS: Alanine Aminotransferase 25 U/L (12-78); Albumin Level 3.8 g/dl (3.5-5.0); Albumin/Globulin Ratio 1.3 (1.1-1.8); Alkaline Phosphatase 81 U/L (38-126); Anion Gap 8.6 mEq/L (5-15); Aspartate Amino Transferase 34 U/L (14-36); Bilirubin,Total 0.4 mg/dl (0.2-1.3); Blood Urea Nitrogen 4 mg/dl (7-17); Calcium 7.5 mg/dl (8.4-10.2); Carbon Dioxide 30 mmol/L (22.0-30.0); Creatinine Clearance Estimated 81 mL/min (50-200); Estimated Glomerular Filt Rate 125 ml/min (>60); GFR (African American) 152 ML/MIN (>60); Globulin 2.9 g/dL (1.3-3.2); Glucose 84 mg/dl (74-100); Magnesium 1.9 mg/dl (1.6-2.3); Total Protein,Serum 6.7 g/dl (6.3-8.2)
[2023-03-02 08:26] LABS: Basophils # 0.1 K/mm3 (0-0.2); Basophils % 0.5 % (0.1-2.0); Eosinophils # 0.2 K/mm3 (0.0-0.4); Eosinophils % 2.8 % (0.1-12.0); Hematocrit 47.9 % (37.0-47.0); Lymphocytes # 2.5 K/mm3 (0.7-4.5); Lymphocytes % 27.8 % (10-50); Mean Corpuscular HGB Conc 33.4 g/dL (31.8-35.4); Mean Corpuscular Hemoglobin 30.3 pg (27.0-31.2); Mean Corpuscular Volume 90.6 fl (81-99); Mean Platelet Volume 8.1 fl (7.4-10.4); Monocytes # 0.4 K/mm3 (0.1-1.0); Monocytes % 4.9 % (1.7-9.3); Neutrophils # 5.6 K/mm3 (1.8-7.8); Neutrophils % 63.9 % (37.0-80.0); Platelet Count 214 K/mm3 (142-424); Red Blood Count 5.28 M/mm3 (4.20-5.40); Red Cell Distribution Width 15.8 % (11.5-17.5); White Blood Count 8.8 K/mm3 (4.8-10.8)
--- NOTE | 2023-03-02 11:57 | PC.NURSE ---
24 hour urine sent to lab @ 0856
--- NOTE | 2023-03-02 11:59 | EXP.ACUTE.PN ---
Subjective *Date: 03/02/23 *Time: 11:59 Interval history: Feeling better this morning. Less cramping and pain. Not shaky on exam. Electrolytes showing improvement on morning labs. Afebrile. On 2 L nasal cannula oxygen. No chest pain or shortness of breath. Medical Exam Vital signs and Labs for Last 24 Hours: Vital Signs Temp Pulse Pulse Resp BP Pulse Ox O2 Del Method 03/02/23 11:47 97.8 F 65 19 160/82 H 96 Nasal Cannula 03/02/23 11:00 Nasal Cannula 03/02/23 09:00 Nasal Cannula 03/02/23 08:00 94 L Nasal Cannula 03/02/23 08:00 Nasal Cannula 03/02/23 08:00 88 03/02/23 07:28 97.5 F L 81 19 151/70 H 94 L Nasal Cannula 03/02/23 06:10 87 L Room Air 03/02/23 06:28 Room Air 03/02/23 05:00 Nasal Cannula 03/02/23 04:44 66 144/80 H 03/02/23 04:00 77 03/02/23 03:56 98.2 F 62 17 175/93 H 97 Nasal Cannula 03/02/23 02:53 Nasal Cannula 03/02/23 00:47 Nasal Cannula 03/02/23 00:00 62 03/02/23 00:00 98.2 F 64 16 124/66 97 Nasal Cannula 03/01/23 23:00 Nasal Cannula 03/01/23 21:00 Nasal Cannula 03/01/23 20:00 94 L Nasal Cannula 03/01/23 20:00 60 03/01/23 19:44 98.1 F 63 17 127/67 94 L Nasal Cannula 03/01/23 16:39 Nasal Cannula 03/01/23 16:37 Nasal Cannula 03/01/23 16:00 70 03/01/23 16:00 98.1 F 75 20 151/77 H 96 Nasal Cannula 03/01/23 12:00 60 03/01/23 14:34 Nasal Cannula 03/01/23 13:00 Room Air 03/01/23 12:00 97.8 F 79 21 137/49 L 95 Nasal Cannula O2 Flow Rate 03/02/23 11:47 03/02/23 11:00 3 03/02/23 09:00 3 03/02/23 08:00 3 03/02/23 08:00 3 03/02/23 08:00 03/02/23 07:28 2 03/02/23 06:10 03/02/23 06:28 03/02/23 05:00 3 03/02/23 04:44 03/02/23 04:00 03/02/23 03:56 03/02/23 02:53 3 03/02/23 00:47 3 03/02/23 00:00 03/02/23 00:00 03/01/23 23:00 3 03/01/23 21:00 3 03/01/23 20:00 3 03/01/23 20:00 03/01/23 19:44 03/01/23 16:39 3 03/01/23 16:37 3 03/01/23 16:00 03/01/23 16:00 03/01/23 12:00 03/01/23 14:34 3 03/01/23 13:00 03/01/23 12:00 Intake and Output 03/01/23 03/02/23 03/02/23 23:59 07:59 15:59 Intake Total 679 / 2232 240 / 780 540 / 780 Output Total 250 / 450 0 / 0 Balance 429 / 1782 240 / 780 540 / 780 Intake: Intake, Oral Amount 270 / 1140 240 / 780 540 / 780 Intake, Total IV Amount 409 / 1092 Calcium Gluconate 2,000 mg In 0 409 / 409 .9 % Sodium Chloride 100 ml @ 60 mls/hr IV ONCE ONE Rx#: [id number] Output: Output, Urine Amount 250 / 450 0 / 0 Other: Number of Voids 0 0 Weight 86.409 kg Patient Weight 03/02/23 23:59 Weight 86.409 kg Laboratory Results - last 24 hr 03/01/23 08:38: Hemoglobin A1c 5.7, TSH 2.72, PTH Intact 77.4 H 03/01/23 16:20: Sodium 141, Potassium 3.3 L, Chloride 105, Carbon Dioxide 32 H, Anion Gap 7.3, BUN 5 L, Creatinine 0.60, Estimated Creat Clear 79, Estimated GFR 102, Est GFR ( Amer) 123, Glucose 94, Calcium 6.8 L, Magnesium 2.7 H D, Total Bilirubin 0.3, AST 31, ALT 20 D, Alkaline Phosphatase 92, Total Protein 6.6, Albumin 3.8, Globulin 2.8, Albumin/Globulin Ratio 1.4 03/01/23 21:45: Sodium 140, Potassium 3.3 L, Chloride 107, Carbon Dioxide 29, Anion Gap 7.3, BUN 5 L, Creatinine 0.60, Estimated Creat Clear 79, Estimated GFR 102, Est GFR ( Amer) 123, Glucose 113 H D, Calcium 7.3 L, Magnesium 2.1 D, Total Bilirubin 0.2, AST 34, ALT 21, Alkaline Phosphatase 68, Total Protein 6.1 L, Albumin 3.4 L D, Globulin 2.7, Albumin/Globulin Ratio 1.3 03/02/23 07:37: Sodium 144, Potassium 3.6, Chloride 109 H, Carbon Dioxide 30, Anion Gap 8.6, BUN 4 L, Creatinine 0.50 L, Estimated Creat Clear 81, Estimated GFR 125, Est GFR ( Amer) 152 D, Glucose 84 D, Calcium 7.5 L, Magnesium 1.9, Total Bilirubin 0.4, AST 34, ALT 25, Alkaline Phosphatase 81, Total Protein 6.7,
[2023-03-02 18:05] LABS: Chloride 105 mmol/L (98-107); Potassium 3.9 mmoL/L (3.5-5.1); Sodium 141 mmol/L (136-145)
[2023-03-02 18:08] LABS: Alanine Aminotransferase 27 U/L (12-78); Albumin Level 3.9 g/dl (3.5-5.0); Albumin/Globulin Ratio 1.3 (1.1-1.8); Alkaline Phosphatase 79 U/L (38-126); Aspartate Amino Transferase 32 U/L (14-36); Bilirubin,Total 0.4 mg/dl (0.2-1.3); Blood Urea Nitrogen 5 mg/dl (7-17); Calcium 8.2 mg/dl (8.4-10.2); Creatinine Clearance Estimated 81 mL/min (50-200); Estimated Glomerular Filt Rate 125 ml/min (>60); GFR (African American) 152 ML/MIN (>60); Glucose 129 mg/dl (74-100); Total Protein,Serum 6.9 g/dl (6.3-8.2)
[2023-03-02 18:09] LABS: Magnesium 1.6 mg/dl (1.6-2.3)
[2023-03-02 18:10] LABS: Anion Gap 10.9 mEq/L (5-15); Carbon Dioxide 29 mmol/L (22.0-30.0)
[2023-03-03] VITALS: PULSE 60
[2023-03-03 04:00] VITALS: BP 154/65; PULSE 63; PULSE 67; RESP 17; TEMP 36.7; O2SAT 95; BMI 29.5
--- NOTE | 2023-03-03 05:55 | PC.NURSE ---
medicated 3 times this shift with morphine 2 mg ivp PRN for left abdominal cramping and aching rated 7-8/10. Patient also receiving percocet 5/325mg po scheduled. has been resting well since about 3 am. spoke with Mary Kay Munoz. about increasing time between morphine doses from q 2 hrs PRN to q 6 hr PRN. patient has drank about 7 small Mt Dew on this shift alone.Patient c/o not sleeping well most likely due to caffeine. Patient has not had any loose or liq stools this shift. Abdomen soft, tender in upper abdominal quadrants. Bowel sounds normoactive.
[2023-03-03 06:24] VITALS: O2SAT 92
--- NOTE | 2023-03-03 06:49 | EXP.DC.SUM ---
General Admission date:: 02/28/23 Discharge date: 03/03/23 HPI HPI HPI: This is a 62-year-old female with PMHx of diverticulitis, hypertension, hyperlipidemia, COPD on intermittent nasal cannula oxygen, current tobacco use presenting with multiples complains including neuromuscular symptoms and difficulty breathing. Patient was admitted recently for diverticulitis and inability to tolerate p.o. after been diagnosed with pneumonia 02/04. At that time she reported several diarrhea after initiated oral antibiotic. Since then patient had been returning to ER, several times for evaluation, has not been followed up with her PCP. This time she also reported difficult breathing with increased SOB She has not been vomiting a lot but has had dry heaves. Admitted for treatment and management. Hospital Course Hospital Course Hospital Course: 62-year-old female with PMHx of diverticulitis, hypertension, hyperlipidemia, COPD on intermittent nasal cannula oxygen, current tobacco use presenting with multiples complains including neuromuscular symptoms and difficulty breathing. Patient was admitted recently for diverticulitis and inability to tolerate p.o. after been diagnosed with pneumonia 02/04. After several episode of diarrhea and PO intolerance, patient has been developing chronic electrolytes imbalances, including potassium, magnesium and Calcium, with significant neuromuscular symptoms, like muscle spams and cramps. initial ER work up confirmed the electrolytes deficits, patient underwent IV replenish and after discussion with ER doctor, medicine admitted for further management. Patient seeing some improvement in her electrolytes this morning. Obtained records from [facility] that show previous admission on 07/06/2022 for similar presentation. Nephrology was consulted at that time. In review of records, was given supplementation and told to stop PPI. Electrolytes showing improvement this morning. Never followed with nephrology as she felt she was making good urine. Tolerating oral supplementation at this time with with fair control of her electrolytes. Continues to require repletion daily. Patient overall feeling better. Stable for discharge home with close follow-up with her PCP tomorrow. Recommend repeat labs tomorrow. Problems addressed during hospitalization as follows Electrolyte disturbances: Hypomagnesemia, hypokalemia, hypocalcemia. Vitamin D deficiency -Differential diagnosis includes loss from renal source, Gitelman or Bartter syndrome, hypocalcemia/vitamin D deficiency, GI loss from diarrhea, side effect from medication (PPI). Urine studies performed, calcium and magnesium appear to be within a normal range. Does not of appear to be losing inappropriately, suspect it is not appropriate intake. Hypocalcemia along with vitamin D deficiency if it becomes severe could cause hypomagnesemia which could lead to poor potassium absorption in the kidneys causing all 3 electrolyte disturbances at this time. Continue aggressive repletion. We will continue vitamin D 50,000 units weekly. Continue calcium supplementation twice daily with calcium carbonate. On day of discharge calcium improved to 8.6, magnesium 1.6, potassium 4.7. Recommend continuing magnesium with magnesium oxide twice daily for 100 mg. Continue potassium supplementation decreased to twice daily. Patient's PTH elevated at 77, consistent with hypoparathyroidism likely in response to her low calcium and vitamin D. In regard to diabetes as a possible cause, patient's A1c is 5.7. No diarrhea during admission. Transitioned GERD medication to famotidine 40 mg twice daily. Muscle spasms improved COPD -Continue supplemental oxygen, goal sats greater than 90%. Currently on 2 L as needed. Continue her inhalers at discharge. No shortness of breath on day of discharge. No indication for antibiotics or steroids. Muscle spam: (carpopedal spam) - likely chronic, exacerbated with low calcium le
[2023-03-03 07:38] VITALS: BP 151/89; PULSE 92; RESP 18; TEMP 36.5; O2SAT 95
[2023-03-03 07:43] LABS: Basophils % 0.5 % (0.1-2.0); Eosinophils # 0.3 K/mm3 (0.0-0.4); Eosinophils % 3.9 % (0.1-12.0); Hematocrit 48.7 % (37.0-47.0); Lymphocytes # 2.6 K/mm3 (0.7-4.5); Lymphocytes % 33.1 % (10-50); Mean Corpuscular HGB Conc 32.8 g/dL (31.8-35.4); Mean Corpuscular Hemoglobin 29.9 pg (27.0-31.2); Mean Corpuscular Volume 91.1 fl (81-99); Monocytes # 0.5 K/mm3 (0.1-1.0); Monocytes % 6.7 % (1.7-9.3); Neutrophils # 4.5 K/mm3 (1.8-7.8); Neutrophils % 55.8 % (37.0-80.0); Platelet Count 216 K/mm3 (142-424); Red Blood Count 5.35 M/mm3 (4.20-5.40); Red Cell Distribution Width 15.7 % (11.5-17.5)
[2023-03-03 08:00] VITALS: PULSE 75
[2023-03-03 08:17] LABS: Chloride 104 mmol/L (98-107); Potassium 4.7 mmoL/L (3.5-5.1); Sodium 139 mmol/L (136-145)
[2023-03-03 08:20] LABS: Alanine Aminotransferase 24 U/L (12-78); Albumin/Globulin Ratio 1.3 (1.1-1.8); Alkaline Phosphatase 91 U/L (38-126); Anion Gap 8.7 mEq/L (5-15); Aspartate Amino Transferase 32 U/L (14-36); Bilirubin,Total 0.5 mg/dl (0.2-1.3); Blood Urea Nitrogen 4 mg/dl (7-17); Carbon Dioxide 31 mmol/L (22.0-30.0); Creatinine Clearance Estimated 79 mL/min (50-200); Estimated Glomerular Filt Rate 125 ml/min (>60); GFR (African American) 152 ML/MIN (>60)
[2023-03-03 08:21] LABS: Calcium 8.6 mg/dl (8.4-10.2); Glucose 84 mg/dl (74-100); Magnesium 1.6 mg/dl (1.6-2.3)
[2023-03-03 08:24] LABS: Calcium, Urine 6.5 mg/dL (Not Estab.); Calcium, Urine 24hr 98 mg/24 hr (0-320); Magnesium, Urine 17.9 mg/dL (Not Estab.); Magnesium, Urine 24 Hr 268.5 mg/24 hr (12.0-293.0)
--- NOTE | 2023-03-04 16:09 | CARE MANAGER ---
Contacted patient related to hospital discharge. She states she is doing well and has followed up with Dr. Jiménez. She denies questions or concerns at this time.HOMER Abbott
== END 2023-03-03 11:02 | disposition home or self-care (01) | DRG 641 ==
LOC: ER 20:18 → 2ND 20:24
PROVIDERS: Nurse Practitioner Family; Admitting Provider Internal Medicine Adolescent Medicine; Emergency Provider Student in an Organized Health Care Education/Training Program; PCP Emergency Medicine; Visit Provider Internal Medicine Adolescent Medicine
DX: E87.6 Hypokalemia (principal); E83.51 Hypocalcemia; I10 Essential (primary) hypertension; J44.9 Chronic obstructive pulmonary disease, unspecified; E83.42 Hypomagnesemia; E78.5 Hyperlipidemia, unspecified; Z87.891 Personal history of nicotine dependence; F41.9 Anxiety disorder, unspecified; M62.838 Other muscle spasm; E03.9 Hypothyroidism, unspecified; K21.9 Gastro-esophageal reflux disease without esophagitis; F31.9 Bipolar disorder, unspecified; E55.9 Vitamin D deficiency, unspecified
CPT/HCPCS: 36415; 71046; 76770; 80053; 82340; 82803; 83036; 83735; 83970; 84100; 84443; 84484; 85007; 85025; 87636; 93005; 94640; 94761; 97163; 97165; 99285; J2405; J3475

== ENCOUNTER → 2023-03-04 12:14 | Outpatient (CLI) | payer MEDICAID, SELFPAY | PROVIDERS: PCP Emergency Medicine; Visit Provider Internal Medicine Adolescent Medicine | DX: E03.9 Hypothyroidism, unspecified (principal) ==

== ENCOUNTER → 2023-03-08 12:59 | Outpatient (CLI) | payer MEDICAID, SELFPAY ==
[2023-03-08 15:28] LABS: Alanine Aminotransferase 22 U/L (12-78); Albumin Level 4.3 g/dl (3.5-5.0); Albumin/Globulin Ratio 1.4 (1.1-1.8); Alkaline Phosphatase 95 U/L (38-126); Anion Gap 14.7 mEq/L (5-15); Aspartate Amino Transferase 26 U/L (14-36); Bilirubin,Total 0.2 mg/dl (0.2-1.3); Blood Urea Nitrogen 9 mg/dl (7-17); Calcium 8.9 mg/dl (8.4-10.2); Carbon Dioxide 29 mmol/L (22.0-30.0); Chloride 92 mmol/L (98-107); Estimated Glomerular Filt Rate 85 ml/min (>60); GFR (African American) 103 ML/MIN (>60); Glucose 105 mg/dl (74-100); Magnesium 1.8 mg/dl (1.6-2.3); Potassium 4.7 mmoL/L (3.5-5.1); Sodium 131 mmol/L (136-145); Total Protein,Serum 7.3 g/dl (6.3-8.2)
== END ==
PROVIDERS: PCP Emergency Medicine; Visit Provider Internal Medicine Adolescent Medicine
DX: E83.51 Hypocalcemia (principal); E83.42 Hypomagnesemia
CPT/HCPCS: 36415; 80053; 83735

== ENCOUNTER 2023-03-16 10:51 | Emergency (ER) | payer MEDICAID, SELFPAY ==
[2023-03-16] VITALS (7 sets, daily range): BP systolic 110–164; BP diastolic 79–93; PULSE 79–91; RESP 15–18; TEMP 36.6–36.7; O2SAT 94–96; BMI 29.0
[2023-03-16 11:08] LABS: Basophils # 0.1 K/mm3 (0-0.2); Basophils % 0.5 % (0.1-2.0); Eosinophils # 0.3 K/mm3 (0.0-0.4); Eosinophils % 1.6 % (0.1-12.0); Hematocrit 50.8 % (37.0-47.0); Hemoglobin 17.2 g/dL (12.2-16.2); Lymphocytes # 3.2 K/mm3 (0.7-4.5); Lymphocytes % 19.7 % (10-50); Mean Corpuscular HGB Conc 33.9 g/dL (31.8-35.4); Mean Corpuscular Hemoglobin 30.2 pg (27.0-31.2); Mean Corpuscular Volume 88.9 fl (81-99); Mean Platelet Volume 7.8 fl (7.4-10.4); Monocytes # 0.8 K/mm3 (0.1-1.0); Monocytes % 4.7 % (1.7-9.3); Neutrophils # 12.1 K/mm3 (1.8-7.8); Neutrophils % 73.4 % (37.0-80.0); Platelet Count 267 K/mm3 (142-424); Red Blood Count 5.71 M/mm3 (4.20-5.40); Red Cell Distribution Width 16.3 % (11.5-17.5); White Blood Count 16.4 K/mm3 (4.8-10.8)
[2023-03-16 11:11] LABS: Chloride 99 mmol/L (98-107); MANUAL DIFFERENTIAL MANUAL DIFFERENTIAL (MANUAL DIFF); Sodium 133 mmol/L (136-145)
[2023-03-16 11:13] LABS: Alanine Aminotransferase 30 U/L (12-78); Alkaline Phosphatase 117 U/L (38-126); Aspartate Amino Transferase 38 U/L (14-36); Bilirubin,Total 0.5 mg/dl (0.2-1.3); Blood Urea Nitrogen 6 mg/dl (7-17); Creatinine Clearance Estimated 78 mL/min (50-200); Estimated Glomerular Filt Rate 102 ml/min (>60); GFR (African American) 123 ML/MIN (>60)
[2023-03-16 11:14] LABS: Albumin Level 4.5 g/dl (3.5-5.0); Albumin/Globulin Ratio 1.2 (1.1-1.8); Calcium 8.8 mg/dl (8.4-10.2); Carbon Dioxide 29 mmol/L (22.0-30.0); Globulin 3.7 g/dL (1.3-3.2); Glucose 114 mg/dl (74-100); Lipase 102 U/L (23-300); Total Protein,Serum 8.2 g/dl (6.3-8.2)
[2023-03-16 11:21] LABS: Lymphocytes % 18 % (10-50); Monocytes % 9 % (2-9); Neutrophils % 73 % (42-76); Platelet Estimate Normal; RBC Morphology Normal; Total Cells Counted 100
--- NOTE | 2023-03-16 11:37 | HMH.EDGENADL ---
Discharge Plan Disposition Patient Disposition: Home, Self-Care Prescriptions Prescriptions: New ondansetron 4 mg tablet,disintegrating 4 mg PO Q6H PRN (Reason: nausea and vomiting) Qty: 10 0RF No Action oxycodone-acetaminophen [Percocet] 5-325 mg tablet 1 tab PO Q4-6H 30 Days Qty: 120 0RF cholecalciferol (vitamin D3) 125 mcg (5,000 unit) capsule 125 mcg PO DAILY Qty: 30 0RF zolpidem [Ambien CR] 12.5 mg tablet,ext release multiphase 12.5 mg PO HS 30 Days Qty: 30 2RF levothyroxine 88 mcg tablet 88 mcg PO DAILY atorvastatin 40 mg tablet 40 mg PO DAILY Trelegy Ellipta 200-62.5-25 mcg blister with device 1 inh inhalation DAILY Patient Comments: INHALE 1 PUFF BY MOUTH ONCE DAILY- NEEDS TO BE SEEN FOR FURTHER REFILLS fluoxetine 20 mg tablet 20 mg PO DAILY Qty: 90 0RF gabapentin 800 mg tablet 800 mg PO QID Qty: 120 0RF methocarbamol 750 mg tablet 750 mg PO TID Patient Comments: TAKE 1 TABLET BY MOUTH THREE TIMES DAILY multivitamin [Daily Multi-Vitamin] Tablet 1 tab PO DAILY 30 Days Qty: 30 0RF Rx Instructions: take OTC multivitamin albuterol sulfate 90 mcg/actuation HFA aerosol inhaler 4 inh inhalation Q3H PRN (Reason: shortness of breath or wheezing) Qty: 6.7 0RF quetiapine 25 mg tablet 25 - 50 mg PO HS Patient Comments: TAKE 1 TO 2 TABLETS BY MOUTH AT BEDTIME nicotine 21 mg/24 hr patch 24 hour 21 mg transdermal DAILY Patient Comments: APPLY 1 PATCH TOPICALLY EVERY 24 HOURS calcium carbonate [Tums] 200 mg calcium (500 mg) Tablet,Chewable 500 mg PO BID 30 Days Qty: 150 0RF famotidine 40 mg tablet 40 mg PO BID 30 Days Qty: 60 0RF magnesium oxide 400 mg (241.3 mg magnesium) Tablet 400 mg PO BID 30 Days Qty: 60 0RF potassium chloride [Klor-Con M20] 20 mEq Tablet,Er Particles/Crystals 20 meq PO BID 30 Days Qty: 60 0RF cariprazine 4.5 mg capsule 4.5 mg PO DAILY 30 Days Qty: 30 0RF Referrals Follow up/Referrals: Sukumar Jiménez MD [Primary Care Provider] - See instructions Activity Restrictions/Add. Instructions Additional Instructions/Restrictions: Call your family doctor to establish care for this visit to the emergency department and schedule follow-up within 48 hours to ensure improvement. If you have any worsening of your condition or any other concerning signs or symptoms, return to the emergency department or your primary care doctor for further evaluation. Talk to family doctor about providing stool sample to further characterize diarrhea. Zofran has been sent to your pharmacy for nausea to stimulate appetite. Clinical Impressions Clinical Impression: Enteritis Instructions Patient Instructions: DI for Diarrhea and Traveler's Diarrhea -- Adult, DI for Diarrhea and Traveler's Diarrhea -- Child, DI for Nausea -- Adult, DI for Nausea -- Child Discharge ED Provider: Luther Cade General Adult HPI General Chief complaint: Nausea/Vomiting/Diarrhea Stated complaint: SOA, upset stomach, h/a Time Seen by Provider: 03/16/23 10:59 Mode of Arrival: Wheelchair Source of Information: Patient Limitations: No Limitations Description of Symptoms (Recalled from ER Triage Doc. by RN): 62 yo F presents to ED with c/o nausea, vomitting, cough, diarrhea, weakness, fatigue. ongoing for the past couple of days. History of Present Illness HPI narrative: 62-year-old female history of hypertension, hyperlipidemia, bipolar 1, COPD, tobacco use, hypothyroidism presenting with nausea diarrhea and weakness. Patient states that these started for the past few days. She has been having diarrhea every 20 to 30 minutes for the past 24 hours or so. Trying to keep up with p.o. intake, but also feeling nauseated. Has not seen any blood in her stool or mucus in her stool. Does not vomiting, just feels nauseated. States that she feels fevered and chilled, has not taken any objective temperature measurem
[2023-03-16 11:47] LABS: Microscopic, Urine URINE MICROSCOPIC (MICROSCOPIC)
[2023-03-16 11:50] LABS: Appearance,Urine CLEAR (Clear); Bilirubin,Urine Negative (Negative); Blood, Urine Negative (Negative); Color,Urine YELLOW (Yellow); Glucose,Urine (UA) Negative (Negative); Ketones,Urine Negative (Negative); Leukocyte Esterase,Urine Negative (Negative); Nitrate,Urine Negative (Negative); Protein,Urine Negative (Negative); Specific Gravity, Urine 1.025 (1.005-1.030); Urobilinogen,Urine 0.2 EU/dl (0.2)
[2023-03-16 11:57] LABS: Magnesium 1.7 mg/dl (1.6-2.3)
[2023-03-16 11:59] LABS: Lactic Acid 1.1 mmol/L (0.7-2.1)
[2023-03-16 12:01] LABS: Squamous Epithelial Cell,Urine Occasional #/hpf (0-5); WBC,Urine Occasional #/hpf (0-3)
--- NOTE | 2023-03-16 12:47 | CT_ITS ---
PROCEDURE INFORMATION: Exam: CT Abdomen And Pelvis With Contrast Exam date and time: 03/16/2023 1:59 PM Age: 62 years old Clinical indication: Abdominal pain; Additional info: Diffuse abd pain, diarrhea, bloating, recent abx TECHNIQUE: Imaging protocol: Computed tomography of the abdomen and pelvis with contrast. Radiation optimization: All CT scans at this facility use at least one of these dose optimization techniques: automated exposure control; mA and/or kV adjustment per patient size (includes targeted exams where dose is matched to clinical indication); or iterative reconstruction. Contrast material: ISOVUE; Contrast volume: 75 ml; Contrast route: IV; REPORTING DATA: Count of CT and Cardiac NM exams in prior 12 months: This patient has received 3 known CTs and 0 known cardiac nuclear medicine studies in the 12 months prior to the current study. COMPARISON: 1. CT ABDOMEN PELVIS W CON 02/08/2023 11:[address] ANGIO CHEST PE PROTOCOL 02/24/2023 10:28 AM FINDINGS: Liver: Well-defined cystic lesions in the liver, most likely benign. No suspicious liver lesions. Gallbladder and bile ducts: Status post cholecystectomy. Post cholecystectomy biliary ectasia, within normal limits. Common bile duct measures 12 mm in maximal diameter without evidence of obstructing stone or soft tissue mass. Pancreas: No pancreatic ductal dilation. No evidence of acute pancreatitis. Spleen: Unremarkable. Adrenal glands: Stable 1.4 cm left adrenal nodule, previously shown to contain macroscopic fat consistent with benign adenoma. No follow-up necessary. Right adrenal gland is unremarkable. Kidneys and ureters: Hypoattenuating subcentimeter lesion in the left renal cortex, too small to characterize but most likely simple renal cyst. No renal or ureteral stones. No hydronephrosis. Stomach and bowel: Extensive sigmoid diverticulosis without evidence of acute diverticulitis. No evidence of bowel obstruction or acute inflammatory changes in the gastrointestinal tract. Appendix: Appendix is visualized and is normal. Intraperitoneal space: No free fluid. No pneumoperitoneum. Vasculature: Moderate amount of calcific arterial atherosclerosis throughout the aorta. No abdominal aortic aneurysm. Lymph nodes: Unremarkable. Urinary bladder: Unremarkable. Reproductive: Stable simple appearing cystic lesion in the left adnexa measuring 2.4 cm in maximal dimension. No follow-up is recommended per current guidelines. Bones/joints: No evidence of acute osseous abnormality. Soft tissues: Unremarkable. IMPRESSION: 1. No acute findings in the abdomen or pelvis. 2. Chronic ancillary findings are detailed above. COMMENTS: 1. No follow-up imaging is recommended for simple ovarian/adnexal cysts <3 cm in postmenopausal women per current guidelines. (Lamont et al 2019). 2. Current guidelines recommend non-emergent adrenal mass protocol CT or MR for further characterization or confirmation of 12 months stability with prior imaging if available. (Reference: Darin) 3. Consistent with the [employer]'s Incidental Findings Committee white paper (J Am Magdalena Radiol 2018): Any incidental renal lesion less than 1 cm or classified as too small to characterize, or any incidental cystic renal lesion characterized as simple-appearing, is likely benign. No follow-up imaging is recommended for these lesions per consensus recommendations based on imaging criteria. REFERENCES: 1. Lamont Altman, Manuelito BRINK, Steven BERGER, et al. Simple Adnexal Cysts: U Consensus Conference Update on Follow-up and Reporting. Radiology. 2019;293(2):359-371. Link: [email or web address]://doi.[email or web address] 2. Darin GONZALEZ, et al. Management of Incidental Adrenal
--- NOTE | 2023-03-16 12:57 | PC.NURSE ---
pt to ct
== END 2023-03-16 14:12 | disposition home or self-care (01) ==
PROVIDERS: Emergency Provider Emergency Medicine; PCP Emergency Medicine
DX: R11.0 Nausea (principal); R10.32 Left lower quadrant pain; R19.7 Diarrhea, unspecified; R53.1 Weakness; I10 Essential (primary) hypertension; J44.89 Other specified chronic obstructive pulmonary disease; E78.5 Hyperlipidemia, unspecified; Z87.891 Personal history of nicotine dependence
CPT/HCPCS: 74177; 80053; 81001; 83605; 83690; 83735; 85007; 85025; 96360; 96361; 96374; 99285; J2405; Q9967

== ENCOUNTER → 2023-03-26 07:29 | Outpatient (CLI) | payer MEDICAID, SELFPAY ==
[2023-03-26 23:38] LABS: Amphetamine/Metha Screen,Urine Negative ng/ml (<1000); Barbiturates Screen,Urine Negative ng/ml (<200)
[2023-03-26 23:39] LABS: Benzodiazepines Screen,Urine Negative ng/ml (<200)
[2023-03-26 23:57] LABS: Cannabinoid Screen,Urine Negative ng/ml (<50)
[2023-03-27 00:02] LABS: Phencyclidine Screen,Urine Negative ng/ml (<25)
[2023-03-27 00:22] LABS: Methadone Screen,Urine Negative ng/ml (<300); Opiate Screen,Urine Negative ng/ml (<300)
[2023-03-27 00:23] LABS: Cocaine Screen,Urine Negative ng/ml (<300)
== END ==
PROVIDERS: PCP Emergency Medicine; Visit Provider Emergency Medicine
DX: Z79.899 Other long term (current) drug therapy (principal)
CPT/HCPCS: 80305

== ENCOUNTER 2023-05-10 10:39 | Outpatient (CLI) | payer MEDICAID, SELFPAY ==
[2023-05-09 18:43] LABS: Amphetamine/Metha Screen,Urine Negative ng/ml (<1000); Barbiturates Screen,Urine Negative ng/ml (<200); Benzodiazepines Screen,Urine Negative ng/ml (<200); Cannabinoid Screen,Urine Negative ng/ml (<50); Cocaine Screen,Urine Negative ng/ml (<300); Methadone Screen,Urine Negative ng/ml (<300); Opiate Screen,Urine Negative ng/ml (<300); Phencyclidine Screen,Urine Negative ng/ml (<25)
[2023-05-19 13:10] LABS: Opiates Negative (Cutoff=100); Oxycodone (GC/MS) 656 ng/mL (Cutoff=100)
== END 2023-05-10 23:59 ==
PROVIDERS: PCP Nurse Practitioner Family; Visit Provider Nurse Practitioner Family
DX: F41.9 Anxiety disorder, unspecified (principal)
CPT/HCPCS: 80307; 80361; 80365; G0480

== ENCOUNTER 2023-06-13 19:26 | Outpatient (CLI) | payer MEDICAID, SELFPAY ==
[2023-06-13 18:54] LABS: Basophils # 0.1 K/mm3 (0-0.2); Basophils % 0.5 % (0.1-2.0); Eosinophils # 0.2 K/mm3 (0.0-0.4); Eosinophils % 1.6 % (0.1-12.0); Hematocrit 54.2 % (37.0-47.0); Lymphocytes # 3.9 K/mm3 (0.7-4.5); Lymphocytes % 30.1 % (10-50); Mean Corpuscular HGB Conc 33.2 g/dL (31.8-35.4); Mean Corpuscular Hemoglobin 31.6 pg (27.0-31.2); Mean Corpuscular Volume 95.1 fl (81-99); Mean Platelet Volume 8.8 fl (7.4-10.4); Monocytes # 0.9 K/mm3 (0.1-1.0); Monocytes % 6.7 % (1.7-9.3); Neutrophils # 7.9 K/mm3 (1.8-7.8); Neutrophils % 61.2 % (37.0-80.0); Platelet Count 282 K/mm3 (142-424); Red Blood Count 5.71 M/mm3 (4.20-5.40); Red Cell Distribution Width 13.3 % (11.5-17.5); White Blood Count 12.9 K/mm3 (4.8-10.8)
[2023-06-13 19:03] LABS: Alanine Aminotransferase 19 U/L (12-78); Albumin Level 4.4 g/dl (3.5-5.0); Albumin/Globulin Ratio 1.3 (1.1-1.8); Alkaline Phosphatase 143 U/L (38-126); Anion Gap 13.2 mEq/L (5-15); Aspartate Amino Transferase 23 U/L (14-36); Bilirubin,Total 0.5 mg/dl (0.2-1.3); Blood Urea Nitrogen 6 mg/dl (7-17); Calcium 9.4 mg/dl (8.4-10.2); Carbon Dioxide 26 mmol/L (22.0-30.0); Chloride 100 mmol/L (98-107); Chol/HDL Ratio 5.6 (1-3.5); Cholesterol 192 mg/dl (140-200); Estimated Glomerular Filt Rate 101 ml/min (>60); GFR (African American) 123 ML/MIN (>60); Globulin 3.3 g/dL (1.3-3.2); Glucose 99 mg/dl (74-100); HDL Cholesterol 34 mg/dl (40-60); Potassium 4.2 mmoL/L (3.5-5.1); Sodium 135 mmol/L (136-145); Total Protein,Serum 7.7 g/dl (6.3-8.2); Triglycerides 251 mg/dl (30-150); VLDL Cholesterol 50 mg/dL (0-40)
[2023-06-13 19:15] LABS: Direct LDL Cholesterol 105.87 mg/dL (100-129)
[2023-06-13 19:20] LABS: 25-OH Vitamin D, Total 18.9 ng/mL (30-100)
[2023-06-13 19:34] LABS: Thyroid Stimulating Hormone 3.74 uIU/mL (0.465-4.68)
== END 2023-06-13 23:59 ==
LOC: LAB.DROPOF 19:26
PROVIDERS: PCP Internal Medicine; Visit Provider Internal Medicine
DX: E03.9 Hypothyroidism, unspecified (principal); E55.9 Vitamin D deficiency, unspecified; Z68.30 Body mass index [BMI] 30.0-30.9, adult
CPT/HCPCS: 80053; 80061; 82306; 84443; 85025

== ENCOUNTER 2023-07-08 18:16 | Outpatient (CLI) | payer MEDICAID, SELFPAY ==
[2023-07-08 18:15] LABS: Basophils # 0.1 K/mm3 (0-0.2); Basophils % 1.1 % (0.1-2.0); Eosinophils # 0.2 K/mm3 (0.0-0.4); Eosinophils % 1.8 % (0.1-12.0); Hematocrit 55.7 % (37.0-47.0); Lymphocytes # 3.3 K/mm3 (0.7-4.5); Lymphocytes % 30.8 % (10-50); Mean Corpuscular HGB Conc 32.3 g/dL (31.8-35.4); Mean Corpuscular Hemoglobin 30.6 pg (27.0-31.2); Mean Corpuscular Volume 94.7 fl (81-99); Mean Platelet Volume 8.3 fl (7.4-10.4); Monocytes # 0.8 K/mm3 (0.1-1.0); Monocytes % 7.5 % (1.7-9.3); Neutrophils # 6.4 K/mm3 (1.8-7.8); Neutrophils % 58.8 % (37.0-80.0); Platelet Count 252 K/mm3 (142-424); Red Blood Count 5.88 M/mm3 (4.20-5.40); Red Cell Distribution Width 13.3 % (11.5-17.5); White Blood Count 10.8 K/mm3 (4.8-10.8)
[2023-07-08 18:36] LABS: Iron 83 ug/dL (37-170)
[2023-07-08 18:48] LABS: Total Iron Binding Capacity 409 ug/dL (265-497)
[2023-07-08 19:15] LABS: Ferritin 11.7 ng/ml (11.1-264)
[2023-07-08 19:47] LABS: Vitamin B12 336 pg/mL (239-931)
[2023-07-08 19:48] LABS: Folate 4.04 ng/mL
[2023-07-10 17:56] LABS: Peripheral Smear Review Scanned Result
== END 2023-07-08 23:59 ==
LOC: LAB.DROPOF 18:17
PROVIDERS: PCP Internal Medicine; Visit Provider Internal Medicine
DX: R53.83 Other fatigue (principal); R71.8 Other abnormality of red blood cells; M54.50 Low back pain, unspecified; F31.9 Bipolar disorder, unspecified; E55.9 Vitamin D deficiency, unspecified; E03.9 Hypothyroidism, unspecified; D75.839 Thrombocytosis, unspecified; Z72.0 Tobacco use; Z79.899 Other long term (current) drug therapy
CPT/HCPCS: 82607; 82728; 82746; 83540; 83550; 85025

== ENCOUNTER 2023-08-07 12:41 | Outpatient (CLI) | payer MEDICAID, SELFPAY ==
--- NOTE | 2023-08-07 12:41 | MR_ITS ---
FINAL REPORT CLINICAL HISTORY: pain in back COMPARISON: None FINDINGS: Multiplanar MR imaging of the lumbar spine was performed without and with contrast. On the sagittal T2-weighted images, disc degeneration is seen throughout. The vertebral alignment is normal. There is no evidence of fracture. The conus is seen at approximately the L1 level and has an unremarkable appearance. L1-2: No significant canal stenosis or neuroforaminal narrowing is seen. L2-3: An annular bulge is present. Right foraminal disc protrusion. Mild right neuroforaminal narrowing. L3-4: An annular bulge is present. Small right foraminal disc protrusion. Mild right neuroforaminal narrowing. L4-5: Annular disc bulge and facet arthropathy. Right foraminal disc protrusion. Mild bilateral neuroforaminal narrowing. L5-S1: An annular bulge is present. Posterior midline annular tear. Mild bilateral neuroforaminal narrowing. No abnormal contrast enhancement is identified. IMPRESSION: Multilevel mild degenerative disc disease and spondylosis with areas of neural foraminal narrowing as described. Disc protrusions at L2-3, L3-4, and L4-5. Annular tear at L5-S1. Reviewed, Interpreted and Dictated by Jamie Barber III, MD Transcribed by Reina Mills Authenticated and [facility]
[2023-08-07] MEDS: GADOTERIDOL INJ 17ML SYRINGE 17 ML IV (15:01)
[2023-08-07] MEDS: SODIUM CHLORIDE 0.9% 10ML SYR (RAD ONLY) 10 ML IV (15:01)
== END 2023-08-07 23:59 ==
LOC: RAD 12:41
PROVIDERS: PCP Internal Medicine; Visit Provider Internal Medicine
DX: M54.16 Radiculopathy, lumbar region (principal)
CPT/HCPCS: 72158; 76376; A9576

== ENCOUNTER 2023-11-04 10:59 | Outpatient (CLI) | payer MEDICAID, SELFPAY ==
[2023-11-04 19:46] LABS: Alanine Aminotransferase 16 U/L (12-78); Albumin Level 4.4 g/dl (3.5-5.0); Albumin/Globulin Ratio 1.3 (1.1-1.8); Alkaline Phosphatase 125 U/L (38-126); Anion Gap 15.2 mEq/L (5-15); Aspartate Amino Transferase 22 U/L (14-36); Bilirubin,Total 0.6 mg/dl (0.2-1.3); Blood Urea Nitrogen 5 mg/dl (7-17); Calcium 9.7 mg/dl (8.4-10.2); Carbon Dioxide 28 mmol/L (22.0-30.0); Chloride 95 mmol/L (98-107); Chol/HDL Ratio 4.3 (1-3.5); Cholesterol 159 mg/dl (140-200); Estimated Glomerular Filt Rate 101 ml/min (>60); GFR (African American) 123 ML/MIN (>60); Globulin 3.3 g/dL (1.3-3.2); Glucose 97 mg/dl (74-100); HDL Cholesterol 37 mg/dl (40-60); Potassium 4.2 mmoL/L (3.5-5.1); Sodium 134 mmol/L (136-145); Total Protein,Serum 7.7 g/dl (6.3-8.2); Triglycerides 176 mg/dl (30-150); VLDL Cholesterol 35 mg/dL (0-40)
[2023-11-04 19:56] LABS: Direct LDL Cholesterol 89.08 mg/dL (100-129)
== END 2023-11-04 23:59 | disposition home or self-care (01) ==
LOC: LAB.DROPOF 11-05 10:59
PROVIDERS: PCP Internal Medicine; Visit Provider Internal Medicine
DX: D75.1 Secondary polycythemia (principal); D75.839 Thrombocytosis, unspecified
CPT/HCPCS: 80053; 80061

== ENCOUNTER 2024-06-17 14:50 | Outpatient (CLI) | payer MEDICAID, SELFPAY ==
[2024-06-17 19:51] LABS: Alanine Aminotransferase 15 U/L (12-78); Albumin Level 4.3 g/dl (3.5-5.0); Albumin/Globulin Ratio 1.3 (1.1-1.8); Alkaline Phosphatase 103 U/L (38-126); Aspartate Amino Transferase 30 U/L (14-36); Bilirubin,Total 0.9 mg/dl (0.2-1.3); Blood Urea Nitrogen 9 mg/dl (7-17); Calcium 9.2 mg/dl (8.4-10.2); Carbon Dioxide 31 mmol/L (22.0-30.0); Chloride 93 mmol/L (98-107); Estimated Glomerular Filt Rate 101 ml/min (>60); GFR (African American) 122 ML/MIN (>60); Globulin 3.2 g/dL (1.3-3.2); Glucose 80 mg/dl (74-100); Sodium 134 mmol/L (136-145); Total Protein,Serum 7.5 g/dl (6.3-8.2)
[2024-06-17 20:07] LABS: 25-OH Vitamin D, Total 50.4 ng/mL (30-100)
== END 2024-06-17 23:59 | disposition home or self-care (01) ==
LOC: LAB.DROPOF 06-18 12:20
PROVIDERS: PCP Internal Medicine; Visit Provider Internal Medicine
DX: E55.9 Vitamin D deficiency, unspecified (principal); R73.03 Prediabetes; Z71.6 Tobacco abuse counseling
CPT/HCPCS: 80053; 82306

== ENCOUNTER 2024-11-19 13:30 | Outpatient (CLI) | payer MEDICAID, SELFPAY ==
[2024-11-19 19:48] LABS: Hematocrit 48.0 % (37.0-47.0); Hemoglobin 16.5 g/dL (12.2-16.2); Immature Granulocytes % 0.3 %; Mean Corpuscular HGB Conc 34.4 g/dL (31.8-35.4); Mean Corpuscular Hemoglobin 30.4 pg (27.0-31.2); Mean Corpuscular Volume 88.6 fl (81-99); Nucleated Red Blood Cells % 0 %; Platelet Count 285 K/mm3 (142-424); Red Blood Count 5.42 M/mm3 (4.20-5.40); Red Cell Distribution Width-SD 42.5 fL; White Blood Count 8.7 K/mm3 (4.8-10.8)
[2024-11-19 20:12] LABS: Hemoglobin A1C 6.2 % (4.0-6.0)
[2024-11-19 20:41] LABS: Alanine Aminotransferase 15 U/L (12-78); Albumin Level 4.6 g/dl (3.5-5.0); Albumin/Globulin Ratio 1.4 (1.1-1.8); Alkaline Phosphatase 97 U/L (38-126); Anion Gap 17.7 mEq/L (5-15); Aspartate Amino Transferase 21 U/L (14-36); Bilirubin,Total 0.5 mg/dl (0.2-1.3); Blood Urea Nitrogen 10 mg/dl (7-17); Calcium 9.3 mg/dl (8.4-10.2); Carbon Dioxide 27 mmol/L (22.0-30.0); Chloride 86 mmol/L (98-107); Cholesterol 153 mg/dl (140-200); Creatinine,Serum 0.60 mg/dl (0.52-1.04); Estimated Glomerular Filt Rate 101 ml/min (>60); GFR (African American) 122 ML/MIN (>60); Globulin 3.3 g/dL (1.3-3.2); Glucose 94 mg/dl (74-100); HDL Cholesterol 40 mg/dl (40-60); Potassium 4.7 mmoL/L (3.5-5.1); Sodium 126 mmol/L (136-145); Total Protein,Serum 7.9 g/dl (6.3-8.2); Triglycerides 178 mg/dl (30-150)
[2024-11-19 20:52] LABS: 25-OH Vitamin D, Total 28.0 ng/mL (30-100)
[2024-11-19 21:09] LABS: Thyroid Stimulating Hormone 4.21 uIU/mL (0.465-4.68)
--- OUTSIDE RECORDS SUMMARY | 2024-11-20 10:07 | XMS_ITS | Clinical Summary ---
Author Organization [facility] Address [address] [place] [address] Phone Care Team Providers Care Bedspring Assembler Name Role Phone Nica Swan MD Unavailable [phone] Allergies Active Allergy Reactions Criticality Noted Date Comments Fluconazole Nausea And Vomiting 06/27/2022 Medications * This document contains information received from the source organization and may not represent a complete record from that organization. acetaminophen 325 mg Oral TabIndications:D DD (degenerative disc disease), lumbosacral,Face t arthritis of lumbosacral region,Chronic radicular lumbar pain,Facet arthropathy, lumbosacral Take 1 Tablet by mouth every 4 hours as needed for Pain. 120 Tablet 1 3 Active buPROPion (WELLBUTRIN SR) 200 mg Oral tablet sustained-releas e 12 hrIndications:Bi polar disorder, current episode depressed, mild (HCC) Take 1 Tablet by mouth 2 times daily. 180 Tablet 1 3 Active busPIRone (BUSPAR) 15 mg Oral TabletIndication s:Anxiety, generalized Take 1 Tablet by mouth 2 times daily as needed. for anxiety 180 Tablet 1 3 Active fluticasone propionate (FLONASE) 50 mcg/actuation Nasl Mobile, SuspensionIndica tions:Seasonal allergic rhinitis, unspecified trigger Use 1 spray(s) in each nostril once daily 16 g 5 3 Active magnesium oxide (MAG-OX) 400 mg (241.3 mg magnesium) Oral Tablet Take 1 Tablet by mouth 2 times daily. 60 Tablet 3 Active potassium chloride 20 mEq Oral Tablet Sustained Release Take 1 Tablet by mouth daily (with breakfast). 30 Tablet 3 Active pantoprazole (PROTONIX) 40 mg Oral Tablet, Delayed Release (E.C.) Take 1 Tablet by mouth 2 times daily. 60 Tablet 3 Active ergocalciferol (VITAMIN D) 1,250 mcg (50,000 unit) Oral Capsule Take 1 Capsule by mouth once a week. 4 Capsule 2 3 Active calcium carbonate (OS-RODNEY) 500 mg calcium (1,250 mg) Oral Tablet Take 1 Tablet by mouth 2 times daily. 60 Tablet 3 Active etodolac (LODINE) 400 mg Oral TabletIndication s:DDD (degenerative disc disease), lumbosacral,Face t arthritis of lumbosacral region,Chronic radicular lumbar pain Take 1 Tablet by mouth 2 times daily with meals as needed (back pain). 60 Tablet 1 3 Active gabapentin (NEURONTIN) 800 mg Oral TabletIndication s:DDD (degenerative disc disease), lumbosacral,Face t arthritis of lumbosacral region,Chronic radicular lumbar pain TAKE 1 TABLET BY MOUTH 4 TIMES DAILY NEEDED FOR BACK PAIN 120 Tablet 2 3 Active fluticasone-umec lidin-vilanter (TRELEGY ELLIPTA) 200-62.5-25 mcg Inhl Disk with DeviceIndication s:COPD, moderate (HCC) INHALE 1 PUFF ONCE DAILY 1 Each 3 Active traZODone (DESYREL) 300 mg Oral TabletIndication s:DDD (degenerative disc disease), lumbosacral,Face t arthritis of lumbosacral region,Insomnia, persistent,Chron ic radicular lumbar pain TAKE 1 TABLET BY MOUTH NIGHTLY NEEDED FOR SLEEP 90 Tablet 3 Active VRAYLAR 6 mg Oral CapsuleIndicatio ns:Bipolar disorder, current episode depressed, mild (HCC),Moderate episode of recurrent major depressive disorder (HCC),Generalize d anxiety disorder Take 1 capsule by mouth once daily 90 Capsule 3 Active methocarbamoL (ROBAXIN) 750 mg Oral TabletIndication s:Chronic radicular lumbar pain TAKE 1 TABLET BY MOUTH THREE TIMES DAILY 270 Tablet 3 Active ferrous sulfate 325 mg (65 mg iron) Oral Tablet, Delayed Release (E.C.)Indication s:Microcytic anemia Take 1 tablet by mouth twice daily 180 Tablet 3 Active ondansetron (ZOFRAN-ODT) 4 mg Oral Tablet, Rapid DissolveIndicati ons:Nausea and vomiting, unspecified vomiting type DISSOLVE 1 TABLET IN MOUTH EVERY 8 HOURS NEEDED FOR NAUSEA 30 Tablet 3 Active atorvastatin (LIPITOR) 40 mg Oral TabletIndication s:Hyperlipidemia with target LDL less than 100 Take 1 tablet by mouth once daily 30 Tablet 3 Active LEVOthyroxine (SYNTHROID) 88 mcg Oral TabletIndication s:Hypothyroidism (acquired) Take 1 tablet by mouth once daily 30 Tablet 3 Active FLUoxetine (PROZAC) 40 mg Oral CapsuleIndicatio ns:Bipolar disorder, current episode depressed, mild (HCC),Anxiety, generalized Take 1 capsule by mouth once daily 30 Capsule 4 Active VENTOLIN HFA 90 mcg/actuation Inhl HFA Aerosol InhalerIndicatio ns:COPD, moderate (HCC) INHALE 2 PUFFS BY MOUTH EVERY 4 HOURS NEEDED FOR WHEEZING 18 g 4 Active Active Problems Problem Noted Date Diagnosed Date Intrahepatic bile duct dilation 10/10/2022 Overview (10/10/2022): noted on CT [facility] 09/17/22 with MRCP to be considered on report, patient not wanting to pursue. Cigarette smoker 08/14/2022 Hypocalcemia 08/01/2022 Hypomagnesemia 07/14/2022 Hypokalemia 02/17/2021 Assessment & Plan (02/17/2021 11:10 AM EDT): Needs f/u Epigastric abdominal pain 10/27/2020 Assessment & Plan (02/17/2021 11:07 AM EDT): Doing well Assessment & Plan (10/27/2020 5:04 PM EDT): GI appt upcoming Will add dicyclomine 20 TID with meals, explained to pt I expect this to be beneficial for her pain, ?? IBS Stop lodine Stop iron Cont PPI daily Insomnia, persistent 10/27/2020 Assessment & Plan (10/10/2022 1:50 PM EDT): Did best on trazodone Will resume Assessment & Plan (08/14/2022 2:24 PM EDT): Complains that doxepin and trazodone have not worked well in the past. Long-term problem Will try Elavil Assessment & Plan (07/26/2022 2:32 PM EDT): Not sleeping well on Doxepin Increased to 25mg HS prn Assessment & Plan (07/20/2022 3:34 PM EDT): Nauseated on trazodone 300 HS and it is not working well Stop trazodone. Try Doxepin 10 mg HS Assessment & Plan (11/21/2021 3:33 PM EDT): Poor control on trazodone 150 at bedtime. Having no adverse reactions by history. No lightheadedness, dry mouth, symptoms of orthostatic hypotension, constipation or other issues. Increased trazodone to 300 mg at bedtime. Facet arthritis of lumbosacral region 10/27/2020 Assessment & Plan (07/26/2022 2:29 PM EDT): Did see pain clinic in the past and was treated with percocet 10 Referral to pain clinic Started NSAID as renal and hepatic BW wnl Assessment & Plan (02/17/2021 11:02 AM EDT): Remains on gabapentin with suboptimal control DDD (degenerative disc disease), lumbosacral Assessment & Plan (10/10/2022 1:51 PM EDT): Best controlled on Lodine Doesn't want any surgery or shots. Assessment & Plan (02/17/2021 11:02 AM EDT): Continues on GAbapentin and is improved by hx No longer seeing specialist Recommended she get back in to see specialist as whe is still complaining of pain at times. Closed fracture of posterior malleolus of right tibia 09/22/2020 Closed nondisplaced fracture of lateral malleolus of right fibula with routine healing 09/22/2020 Sprain of left ankle 09/22/2020 Chronic radicular lumbar pain 07/26/2020 Overview (07/26/2020): Gabapentin given at pain clinic in the past Assessment & Plan (07/26/2022 2:26 PM EDT): Doing well on Robaxin Not wanting to see specialist Assessment & Plan (05/14/2022 4:35 PM EST): Refilled gabapentin for a month ANGEL as expected [id number] Rechecked UDS today as one was recently abn. Assessment & Plan (03/08/2022 1:54 PM EDT): Previously seen at pain clinic Treated with percocet in the pain clinic Now on gabapentin for the past few years Does not want to go back to pain clinic. Surgery entertained but patient wants no surgery. ANGEL as expected: [phone] Recheck in 3 months and prn Assessment & Plan (11/21/2021 3:33 PM EDT): The patient tells me that the gabapentin 400 mg capsule really seem to work better for her than the current 800 mg tablets. For this reason, she would like to change back to the 400 mg capsule. She understands that I will be reluctant to refill or alter this dose until she has used the 1 month supply. She is agreeable to that stipulation. Angel as expected: [id number] Assessment & Plan (10/27/2020 5:02 PM EDT): Ok to increase gabapentin to 800 mg QID Assessment & Plan (07/26/2020 11:51 AM EDT): ANGEL as expected [id number] Refilled gabapentin Continues to have chronic pain Has been seen in the pain clinic in the past We will continue gabapentin. Bipolar disorder, current episode depressed, mil d 03/27/2016 Assessment & Plan (07/26/2022 2:21 PM EDT): Stable and doing well. Assessment & Plan (05/24/2021 7:25 AM EST): At baseline, still having some anxiety, but stable. Assessment & Plan (02/17/2021 11:06 AM EDT): Has not been ot psych as previously recommended Doesn't want to see anyone else On Gabapentin Still feels depressed and has anxiety Has Atarax, Prozac 40 mg daily, Vraylar3 mg daily, Buspar, Wellbutrin 200 BID As sx not well controled, will try increasing Vraylar to 6 mg daily Assessment & Plan (10/27/2020 5:02 PM EDT): Refer to psych I gave pt # to call and reschedule her appt Assessment & Plan (07/26/2020 11:51 AM EDT): Continue gabapentin as well Angel as expected. Symptoms are much better than when she started treatment years ago but still not optimally controlled. Still has some agoraphobia although this is much improved. I have recommended that we have behavioral, health consultation in the past and she has not been interested. I have continued to recommend that especially since it could possibly be done by telemedicine. She appears to reluctantly agree with this idea. We will plan on behavioral health consultation. Assessment & Plan (08/19/2017 2:23 PM EDT): Recommended psych f/u, patient no0t interested. Assessment & Plan (12/15/2016 10:07 AM EDT): At baseline still nervous. Recommended psych consult, patient doesn't want. Hyperlipidemia with target LDL less than 100 Assessment & Plan (07/26/2022 2:24 PM EDT): Doing well on Lipitor Assessment & Plan (02/17/2021 11:08 AM EDT): Goal : - risk reduction Compliance: - taking medications as prescribed. Advice: - lower saturated fats in diet Medication Management: - medication management decisions took place at today's visit (see orders) Assessment & Plan (07/26/2020 11:52 AM EDT): Doing well on Lipitor. Hypothyroidism (acquired) 03/18/2015 Assessment & Plan (07/26/2022 2:25 PM EDT): Clinically doing well with recently nml TSH Assessment & Plan (07/26/2020 11:52 AM EDT): Doing well clinically. Gastroesophageal reflux disease without esophagi tis 03/18/2015 Overview (08/14/2022): Nephrology would like us to discontinue the PPI when the patient is able to be controlled without it. Assessment & Plan (08/14/2022 2:53 PM EDT): Currently requiring PPI for symptomatic relief but hopefully we can make this short-term and discontinue PPI to help with her renal function as well as electrolyte status. Assessment & Plan (07/26/2022 2:25 PM EDT): Well controlled on prilosec and exacerbated if off. Assessment & Plan (02/17/2021 11:08 AM EDT): Doing well on meds. Assessment & Plan (07/26/2020 11:51 AM EDT): Controlled Assessment & Plan (12/15/2016 10:07 AM EDT): Doing well Anxiety, generalized 02/04/2015 Assessment & Plan (10/10/2022 1:59 PM EDT): Not well controlled on meds by hx On Prozac, Wellbutrin, Vraylar, Buspar, Trazodone Has an appointment with [facility] health but not until 12/27/22 Will try to facilitate Assessment & Plan (07/26/2022 2:23 PM EDT): Recommended she follow up with behavioral health as she has anxiety on prozac,Vraylar,Buspar,Wellbutrin Assessment & Plan (02/17/2021 11:07 AM EDT): poor dontrol by hx. Assessment & Plan (07/26/2020 11:28 AM EDT): Remains anxoius Rectal carcinoid tumor 01/14/2014 Assessment & Plan (07/26/2022 2:22 PM EDT): Wants no further workup or treatment Assessment & Plan (07/20/2022 3:33 PM EDT): Having no issues Follow up colonoscopy recommended in a year Patient not wanting further work up or treatment or colonoscopy Diverticulosis 01/08/2014 Overview (10/10/2022): L colon by CT Sabrina 09/17/22 Assessment & Plan (07/26/2022 2:21 PM EDT): High fiber diet Assessment & Plan (07/20/2022 3:31 PM EDT): Recommended high fiber diet Resolved Problems Problem Noted Date Diagnosed Date Resolved Date Hyponatremia 02/17/2021 07/26/2022 Assessment & Plan (02/17/2021 11:10 AM EDT): Needs f/u Microcytic anemia 10/27/2020 02/17/2021 Chronic midline low back casandra n without sciatica 07/26/2020 03/08/2022 Major depressive disorder, r ecurrent episode, moderate 02/04/2015 01/04/2020 Assessment & Plan (08/19/2017 2:23 PM EDT): Recommended psych f/u byut patient not interested. Assessment & Plan (12/15/2016 10:06 AM EDT): At baseline, still nervous Primary insomnia 02/04/2015 01/04/2020 Recurrent UTI 01/08/2014 07/26/2022 Assessment & Plan (07/26/2022 2:21 PM EDT): resolved Immunizations Immunization Administration Dates Next Due Moderna SARS-CoV-2 Vaccine 12+ Yrs (Light blue b order) 11/18/2020 Surgical History Surgery Date Site/Laterality Comments UPPER GASTROINTESTINAL ENDOSCOPY 12/22/2013 N/A ESOPHAGOGASTRODUODENOS COPY with biopsy dilation,COLONOSCOPY with biopsies; Surgeon: Opal Lazaro MD; Location: [facility]; Service: Endoscopy COLONOSCOPY 12/22/2013 N/A Surgeon: Opal Lazaro MD; Location: [facility]; Service: Endoscopy CHOLECYSTECTOMY 03/06/2020 - 04/04/2020 Medical History Medical History Date Comments UTI (urinary tract infection) re cent, times 2 months, last dose of abx 12/21/13 Shortness of breath Hyperlipidemia Heartburn Nausea alone time many years Arthritis back Passed out happened twice, years ago, no diagnisis Thyroid disease Depression Glaucoma Tumors rectal tumors Headache(784.0) migraines Anxiety Hypertension COPD (chronic obstructive pu lmonary disease) (HCC) Family History Medical History Relation Name Comments Diabetes Father Heart Disease Father Cancer Mother bone and breast Relation Name Status Comments Father Mother Social History Tobacco Use Types Packs/Day Years Used Date Smoking Tobacco: Every Day Cigarettes 1 48.5 Started: 05/06/1976 Smokeless Tobacco: Never Tobacco Cessation:Ready to Q uit: Not Asked; Counseling Given: Not Answered Alcohol Use Standard Drinks/Week Comments No 0 (1 standard drink = 0.6 oz pur e alcohol) Overall Financial Resource Strain (CARDIA) Answe r Date Recorded How hard is it for you to pa y for the very basics like food, housing, medical care, and heating? Not hard at all 08/03/2022 PHQ-2 Answer Date Recorded PHQ-2 Total Score 0 08/14/2022 [facility] - [facility]ational Stress Questionnaire Answer Date Recorded Do you feel stress - tense, restless, nervous, or anxious, or unable to sleep at night because your mind is troubled all the time - these days? Only a little 07/20/2022 Exercise Vital Sign Answer Date Recorde d On average, how many days pe r week do you engage in moderate to strenuous exercise (like a brisk walk)? 0 days 08/03/2022 On average, how many minutes do you engage in exercise at this level? 0 min 08/03/2022 Hunger Vital Sign Answer Date Recorded Within the past 12 months, y ou worried that your food would run out before you got the money to buy more. Never true 08/04/19 23 Within the past 12 months, t he food you bought just didn't last and you didn't have money to get more. Never true 08/03/2022 PRAPARE - Transportation Answer Date Re corded In the past 12 months, has l ack of transportation kept you from medical appointments or from getting medications? No 07/06 In the past 12 months, has l ack of transportation kept you from meetings, work, or from getting things needed for daily living? No 08/03/2022 Sexually Active Control Partners Comments Not Currently Male Comments No Sex and Gender Information Value Date Recorded Sex Assigned at Not on file Legal Sex Female 7:53 PM EDT Gender Identity Not on file Sexual Orientation Not on file Obstetrics History Para Term AB IAB SAB Ectopic Multiple Livin g Live Births 3 3 Date Outcome GA Total Labor Labor/2nd/3rd Weight Sex Type Anes PTL [place]ulah A1 A5 Name Clin Para Para Para Last Filed Vital Signs Vital Sign Reading Time Taken Comments Blood Pressure 120/68 10/10/2022 1:40 PM EDT Pulse 86 10/10/2022 1:40 PM EDT Temperature 36.7 C (98.1 F) 10/10/2022 1:40 PM EDT Respiratory Rate 18 08/03/2022 12:58 PM EDT Oxygen Saturation 94% 10/10/2022 1:40 PM EDT Inhaled Oxygen Concentration - - Weight 87.5 kg (193 lb) 10/10/2022 1:40 PM EDT Height 170.2 cm (5' 7 ) 10/10/2022 1:40 PM EDT Body Mass Index 30.23 10/10/2022 1:40 PM EDT Plan of Treatment Health Maintenance Due Date Last Done Comments DTaP/TDaP/Td (1 - Tdap) 1980 Pneumococcal Vaccine 50+ (1 of 2 - PCV) 1980 Cervical Cancer Screening 1982 Pap Smear 1982 HPV/Pap Cotest 1991 Low Dose Lung Cancer Screening 2011 Zoster (1 of 2) 2011 Breast Cancer Screening 11/19/2014 11/20/19 14 (Declined) RSV or 60+ (1 - Ris k 60-74 years 1-dose series) 2021 Annual Wellness Exam 03/08/2023 03/08/2022 COVID-19 Vaccine (3 - 2023-2 5 season) 2024 12/16/2020, 11/18/2020 Influenza Vaccine (#1) 2025 7 (Declined), 03/27/2016 (Declined) Colon Cancer Screening Discontinued Colonoscopy Discontinued 12/22/2013, 12/22/2013 Hepatitis C Screening Completed 08/04/2020 Cologuard Discontinued FIT Discontinued Hepatitis B Vaccine Aged Out No longe r eligible based on patient's age to complete this topic Meningococcal B Vaccine Aged Out No l onger eligible based on patient's age to complete this topic Sigmoidoscopy Discontinued Virtual Colonography Discontinued Goals Goal Patient Goal Type Associated Problems Recent Progress Patient-Stated? Author Blood Pressure < 140/90 Blood Pressure 120/68(2022 1:40 PM EDT) No Veena Garcia RMA Eat better, exercise, reach an ideal body weight General No Veena Garcia RMA Stay Tobacco Free Lifestyle No Veena Garcia RMA Procedures Procedure Name Priority Date/Time Associated Diagnosis Comments HCV ANTIBODY SCREEN W/ REFLEX Routine 08/04/2020 4:13 PM EDT Need for hepatitis C screening test [facility] EGD-COLONOSCOPY Routine 12/22/2013 9:15 AM EDT from Last 3 Months or Most Recently Relevant to Health Maintenance Results * HEPATITIS C ANTIBODY - SCREENING (08/04/2020 4:13 PM EDT) Hep C Ab Non-Reactiv e Non-Reacti ve 08/04/2020 7:49 PM EDT [facility] Blood Venipuncture / Unknown 08/04/2020 4:13 PM EDT 08/04/2020 4:13 PM EDT us Malachi Cortez MD HEMATOLOGY ORDERABLES Final Result Performing Organization Address City/[facility]/ZIP Co de Phone Number [facility] [address] [facility], [place] [address] * [facility] EGD-COLONOSCOPY (12/22/2013 9:15 AM EDT) 12/22/2013 9:15 AM EDT Impressions [facility] - 12/22/2013 10:40 AM EDT This section is an excerpt of the full report. us Opal Lazaro MD GI PROCEDURE ORDERABLES Edited Result - Final Performing Organization Address [facility] Co de Phone Number [facility] [address] [place] [address] from Last 3 Months or Most Recently Relevant to Health Maintenance Insurance [facility] [employer] [place] [employer] [place] [employer] [place] Advance Directives For more information, please contact: [phone] * Full Code (Latest Code Status on File) Date Activated Date Inactivated Comments 08/01/2022 6:17 PM 08/03/2022 6:07 PM * Full Code Date Activated Date Inactivated Comments 07/14/2022 11:57 PM 07/18/2022 9:47 PM Care Teams Bedspring Assembler Relationship Specialty Start Date End Date Nica Swan MD [address] [address] Internal Medicine-Nephrology 08/02/22
--- OUTSIDE RECORDS SUMMARY | 2024-11-20 10:07 | XMS_ITS | Clinical Summary ---
Author Organization [facility] Address [address] [place] [address], [address] [place] [address] Care Team Providers Care Hose Stripper Name Role Phone Malachi Cortez MD Primary Care Provider + Social History Tobacco Use Types Packs/Day Years Used Date Smoking Tobacco: Never Assessed Comments Unknown Sex and Gender Information Value Date Recorded Sex Assigned at Not on file Legal Sex Female 1:54 PM EST Gender Identity Not on file Sexual Orientation Not on file Plan of Treatment Not on file [facility] Care Teams Hose Stripper Relationship Specialty Start Date End Date Malachi Cortez MD [address] [address] PCP - General Family Medicine 05/20/14
== END 2024-11-19 23:59 | disposition home or self-care (01) ==
LOC: LAB.DROPOF 11-20 10:06
PROVIDERS: PCP Family Medicine; Visit Provider Family Medicine
DX: F51.05 Insomnia due to other mental disorder (principal); R73.03 Prediabetes; E03.9 Hypothyroidism, unspecified; F99 Mental disorder, not otherwise specified; E78.5 Hyperlipidemia, unspecified; E55.9 Vitamin D deficiency, unspecified
CPT/HCPCS: 80053; 80061; 82306; 83036; 84443; 85025

== ENCOUNTER 2024-11-27 14:01 | Outpatient (CLI) | payer MEDICAID, SELFPAY ==
--- OUTSIDE RECORDS SUMMARY | 2024-11-27 14:04 | XMS_ITS | Clinical Summary ---
Author Organization [facility] Address [address] [place] [address], [address] [place] [address] Care Team Providers Care Compressor Engineer Name Role Phone Malachi Cortez MD Primary Care Provider + Social History Tobacco Use Types Packs/Day Years Used Date Smoking Tobacco: Never Assessed Comments Unknown Sex and Gender Information Value Date Recorded Sex Assigned at Not on file Legal Sex Female 1:54 PM EST Gender Identity Not on file Sexual Orientation Not on file Plan of Treatment Not on file [facility] Care Teams Compressor Engineer Relationship Specialty Start Date End Date Malachi Cortez MD [address] [place] [address] PCP - General Family Medicine 05/20/14
--- OUTSIDE RECORDS SUMMARY | 2024-11-27 14:04 | XMS_ITS | Clinical Summary ---
Author Organization [facility] Address [address] [place] [address] Phone Care Team Providers Care Farmworker General Name Role Phone Nica Swan MD Unavailable [phone] Allergies Active Allergy Reactions Criticality Noted Date [...] Active fluticasone propionate (FLONASE) 50 mcg/actuation Nasl [place], SuspensionIndica tions:Seasonal allergic rhinitis, unspecified trigger Use [...] dilation 10/10/2022 Overview (10/10/2022): noted on CT [place] 09/17/22 with MRCP to be considered on [...] gabapentin for a month ANGEL as expected [id number] Rechecked UDS today as one was recently abn. Assessment & Plan (03/08/2022 1:54 PM EDT): Previously seen at pain clinic Treated with percocet in the pain clinic Now on gabapentin for the past few years Does not want to go back to pain clinic. Surgery entertained but patient wants no surgery. ANGEL as expected: [id number] Recheck in 3 months and prn Assessment [...] agreeable to that stipulation. Angel as expected: [id number] Assessment & Plan (10/27/2020 5:02 PM EDT): Ok to increase gabapentin to 800 mg QID Assessment & Plan (07/26/2020 11:51 AM EDT): ANGEL as expected [id number] Refilled gabapentin Continues to have chronic pain [...] Vraylar, Buspar, Trazodone Has an appointment with [facility] but not until 12/27/22 Will try [...] Date Smoking Tobacco: Every Day Cigarettes 1 48.6 Started: 05/06/1976 Smokeless Tobacco: Never Tobacco Cessation:Ready [...] Date Recorded PHQ-2 Total Score 0 08/14/2022 [facility] - Occupational Stress Questionnaire Answer Date [...] e Non-Reacti ve 08/04/2020 7:49 PM EDT [facility] [employer] Blood Venipuncture / Unknown 08/04/2020 4:13 PM EDT 08/04/2020 4:13 PM EDT us Malachi Cortez MD HEMATOLOGY ORDERABLES Final Result Performing Organization Address City/[facility]/ZIP Co de Phone Number [facility] [employer] [address] [facility] [facility] [address], [place] [address] * [facility] EGD-COLONOSCOPY (12/22/2013 9:15 AM EDT) 12/22/2013 9:15 AM EDT Impressions [facility] - 12/22/2013 10:40 AM EDT This section is an excerpt of the full report. us Opal Lazaro MD GI PROCEDURE ORDERABLES Edited Result - Final Performing Organization Address [facility] Co de Phone Number [facility] [address] [place] [address] from Last 3 Months or Most Recently Relevant to Health Maintenance Insurance [facility] [employer] [place] [employer] [place] [employer] [place] Advance Directives For more information, please contact: [phone] * Full Code (Latest Code Status on File) Date Activated Date Inactivated Comments 08/01/2022 6:17 PM 08/03/2022 6:07 PM * Full Code Date Activated Date Inactivated Comments 07/14/2022 11:57 PM 07/18/2022 9:47 PM Care Teams Farmworker General Relationship Specialty Start Date End Date Nica Swan MD [address] [address] Internal Medicine-Nephrology 08/02/22
[2024-11-27 14:45] LABS: Albumin Level 3.9 g/dl (3.5-5.0); Chloride 88 mmol/L (98-107); Potassium 4.2 mmoL/L (3.5-5.1); Sodium 124 mmol/L (136-145)
[2024-11-27 14:48] LABS: Alanine Aminotransferase 16 U/L (12-78); Albumin/Globulin Ratio 1.1 (1.1-1.8); Alkaline Phosphatase 103 U/L (38-126); Anion Gap 10.2 mEq/L (5-15); Aspartate Amino Transferase 24 U/L (14-36); Bilirubin,Total 0.4 mg/dl (0.2-1.3); Blood Urea Nitrogen 7 mg/dl (7-17); Calcium 9.1 mg/dl (8.4-10.2); Carbon Dioxide 30 mmol/L (22.0-30.0); Creatinine,Serum 0.60 mg/dl (0.52-1.04); Estimated Glomerular Filt Rate 101 ml/min (>60); GFR (African American) 122 ML/MIN (>60); Globulin 3.7 g/dL (1.3-3.2); Glucose 99 mg/dl (74-100); Total Protein,Serum 7.6 g/dl (6.3-8.2)
[2024-11-27 14:57] LABS: NT Pro Brain Natriuretic Pep. 38.5 pg/mL (0-125)
== END 2024-11-27 23:59 | disposition home or self-care (01) ==
LOC: LAB 14:02
PROVIDERS: PCP Family Medicine; Visit Provider Family Medicine
DX: I50.9 Heart failure, unspecified (principal); E87.1 Hypo-osmolality and hyponatremia
CPT/HCPCS: 36415; 80053; 83880

== ENCOUNTER 2024-11-27 20:12 | Emergency (ER) | payer MEDICAID, SELFPAY ==
[2024-11-27] VITALS (7 sets, daily range): BP systolic 126–185; BP diastolic 72–93; PULSE 62–70; RESP 16–22; TEMP 36.7; O2SAT 93–97; BMI 28.8
--- OUTSIDE RECORDS SUMMARY | 2024-11-27 21:19 | XMS_ITS | Clinical Summary ---
Author Organization [facility] Address [address] [place] [address] Phone Care Team Providers Care Machine Room Operator Name Role Phone Nica Swan MD Unavailable [phone] Allergies Active Allergy Reactions Criticality Noted Date [...] Active fluticasone propionate (FLONASE) 50 mcg/actuation Nasl [place], SuspensionIndica tions:Seasonal allergic rhinitis, unspecified trigger Use [...] dilation 10/10/2022 Overview (10/10/2022): noted on CT [place] 09/17/22 with MRCP to be considered on [...] gabapentin for a month ANGEL as expected [id number] Rechecked UDS today as one was recently abn. Assessment & Plan (03/08/2022 1:54 PM EDT): Previously seen at pain clinic Treated with percocet in the pain clinic Now on gabapentin for the past few years Does not want to go back to pain clinic. Surgery entertained but patient wants no surgery. ANGEL as expected: [id number] Recheck in 3 months and prn Assessment [...] agreeable to that stipulation. Angel as expected: [phone] Assessment & Plan (10/27/2020 5:02 PM EDT): Ok to increase gabapentin to 800 mg QID Assessment & Plan (07/26/2020 11:51 AM EDT): ANGEL as expected [id number] Refilled gabapentin Continues to have chronic pain [...] Vraylar, Buspar, Trazodone Has an appointment with [facility] but not until 12/27/22 Will try [...] Date Recorded PHQ-2 Total Score 0 08/14/2022 [facility] - Occupational Stress Questionnaire Answer Date [...] e Non-Reacti ve 08/04/2020 7:49 PM EDT [facility] [employer] Blood Venipuncture / Unknown 08/04/2020 4:13 PM EDT 08/04/2020 4:13 PM EDT us Malachi Cortez MD HEMATOLOGY ORDERABLES Final Result Performing Organization Address City/[facility]/ZIP Co de Phone Number [facility] [employer] [address] [facility], [place] [address] * [facility] EGD-COLONOSCOPY (12/22/2013 9:15 AM EDT) 12/22/2013 9:15 AM EDT Impressions [facility] - 12/22/2013 10:40 AM EDT This section is an excerpt of the full report. us Opal Lazaro MD GI PROCEDURE ORDERABLES Edited Result - Final Performing Organization Address [facility] Co de Phone Number [facility] [address] [place] [address] from Last 3 Months or Most Recently Relevant to Health Maintenance Insurance [facility] [employer] [place] [employer] [place] [employer] [place] Advance Directives For more information, please contact: [phone] * Full Code (Latest Code Status on File) Date Activated Date Inactivated Comments 08/01/2022 6:17 PM 08/03/2022 6:07 PM * Full Code Date Activated Date Inactivated Comments 07/14/2022 11:57 PM 07/18/2022 9:47 PM Care Teams Machine Room Operator Relationship Specialty Start Date End Date Nica Swan MD [address] [address] Internal Medicine-Nephrology 08/02/22
--- NOTE | 2024-11-27 21:57 | ED_ITS ---
Discharge Plan Disposition Patient Disposition: Home, Self-Care Prescriptions Prescriptions: No Action cholecalciferol (vitamin D3) 125 mcg (5,000 unit) capsule 250 mcg PO DAILY 90 Days Qty: 180 4RF fluticasone propionate [Flonase Allergy Relief] 50 mcg/actuation spray,suspension 1 spray intranasal DAILY Qty: 16 2RF Rx Instructions: administer into each nostril gabapentin 600 mg tablet 600 mg PO TID Qty: 90 2RF oxycodone-acetaminophen 10-325 mg tablet 1 tab PO Q4-6H PRN (Reason: pain) Qty: 120 0RF Ubrelvy 100 mg tablet 0RF levothyroxine 88 mcg tablet See Rx Instructions .ROUTE .COMPLEX Qty: 90 0RF Dose Instruction: Take 1 tablet by mouth once daily Rx Instructions: Take 1 tablet by mouth once daily atorvastatin 40 mg tablet See Rx Instructions .ROUTE .COMPLEX Qty: 90 0RF Dose Instruction: TAKE 1 TABLET BY MOUTH ONCE DAILY FOR HIGH CHOLESTEROL Rx Instructions: TAKE 1 TABLET BY MOUTH ONCE DAILY FOR HIGH CHOLESTEROL fluoxetine 40 mg capsule See Rx Instructions .ROUTE .COMPLEX Qty: 90 0RF Dose Instruction: Take 1 capsule by mouth once daily Rx Instructions: Take 1 capsule by mouth once daily tizanidine 4 mg tablet See Rx Instructions .ROUTE .COMPLEX Qty: 90 0RF Dose Instruction: TAKE 1 TABLET BY MOUTH THREE TIMES DAILY NEEDED FOR MUSCLE SPASTICITY Rx Instructions: TAKE 1 TABLET BY MOUTH THREE TIMES DAILY NEEDED FOR MUSCLE SPASTICITY zolpidem 5 mg tablet 5 mg PO HS 60 Days Qty: 30 2RF ondansetron 4 mg tablet,disintegrating See Rx Instructions .ROUTE .COMPLEX Qty: 30 0RF Dose Instruction: DISSOLVE 1 TABLET IN MOUTH EVERY 6 HOURS NEEDED FOR NAUSEA AND VOMITING Rx Instructions: DISSOLVE 1 TABLET IN MOUTH EVERY 6 HOURS NEEDED FOR NAUSEA AND VOMITING albuterol sulfate 2.5 mg /3 mL (0.083 %) solution for nebulization See Rx Instructions .ROUTE .COMPLEX Qty: 75 0RF Dose Instruction: USE 1 VIAL IN NEBULIZER EVERY 8 HOURS Rx Instructions: USE 1 VIAL IN NEBULIZER EVERY 8 HOURS sumatriptan succinate 50 mg tablet See Rx Instructions PO .COMPLEX Qty: 14 0RF Rx Instructions: take 1 tab at onset of headache; if no relief may repeat 1 tab after at least 2 hrs; max = 4 tabs/24 hr PO Trelegy Ellipta 200-62.5-25 mcg blister with device See Rx Instructions .ROUTE .COMPLEX Qty: 60 3RF Dose Instruction: INHALE 1 PUFF ONCE DAILY FOR COPD Rx Instructions: INHALE 1 PUFF ONCE DAILY FOR COPD albuterol sulfate [Ventolin HFA] 90 mcg/actuation HFA aerosol inhaler See Rx Instructions .ROUTE .COMPLEX Qty: 18 0RF Dose Instruction: INHALE 4 PUFFS BY MOUTH EVERY 3 HOURS NEEDED FOR SHORTNESS OF BREATH AND FOR WHEEZING Rx Instructions: INHALE 4 PUFFS BY MOUTH EVERY 3 HOURS NEEDED FOR SHORTNESS OF BREATH AND FOR WHEEZING famotidine 40 mg tablet See Rx Instructions .ROUTE .COMPLEX Qty: 90 0RF Dose Instruction: Take 1 tablet by mouth once daily Rx Instructions: Take 1 tablet by mouth once daily multivitamin [Daily Multi-Vitamin] Tablet 1 tab PO DAILY 30 Days Qty: 30 0RF Rx Instructions: take OTC multivitamin calcium carbonate [Tums] 200 mg calcium (500 mg) Tablet,Chewable 500 mg PO BID 30 Days Qty: 150 0RF Referrals Follow up/Referrals: Brandon Arevalo MD [Primary Care Provider, Family Practice] - See instructions Activity Restrictions/Add. Instructions Additional Instructions/Restrictions: Follow-up with your primary care physician at the beginning next week to get repeat lab work done. Continue to drink fluids with electrolytes, including Gatorade, Pedialyte to replenish your sodium. Continue your medications for migraines as prescribed. Continue Zofran for nausea. If you develop any new or worsening symptoms, or if you become concerned for your health for any reason, return to the emergency department for evaluation Clinical Impressions Clinical Impression: Hyponatremia Print Language Print Language: Irish Discharge ED Provider: Ramy Tao General Adult HPI <GALLO Artis - Last Filed: 11/27/24 22:07> General Chief complaint: Recheck/Abnormal Lab/Rx Stated complaint: Abnormal Labs Time Seen by Provider: 11/27/24 21:56 Mode of Arrival: Ambulatory Source of Information: Patient Description of Symptoms (Recalled from ER Triage Doc. by RN): patient to the ED for low sodium level. states she has her labs drawn this afternoon and was called to come to hospital for sodium level of 124. c/o headache, nausea, muscle spasms History of Present Illness HPI narrative: Patient presents for hyponatremia. Patient has had a low sodium level now for several weeks. Her PCP repeated her sodium today and it was 124. Previous was 126 on 11/19/2024. Patient reports that she is not having any change in mental status does not drink has not been excessively drinking water. She does not know why her sodium is trending low. Related Data Previous Rx's ?Medication ?Instructions ?Recorded multivitamin (Daily Multi-Vitamin 1 tab PO DAILY 30 da ys #30 tabs 02/10/23 tablet) calcium carbonate (Tums) 500 mg (2.5 x 200 mg calcium (500 03/03/23 mg)) PO BID 30 days #150 tabs cholecalciferol (vitamin D3) 125 250 mcg (2 x 125 mcg (5,000 unit)) 08/06/23 mcg (5,000 unit) capsule PO DAILY 90 days #180 caps levothyroxine 88 mcg tablet See Rx Instructions .Route 09/02/24 .COMPLEX #90 tabs atorvastatin 40 mg tablet See Rx Instructions .Route 0 09/29/24 .COMPLEX #90 tabs fluoxetine 40 mg capsule See Rx Instructions .Route 0 10/19/24 .COMPLEX #90 caps tizanidine 4 mg tablet See Rx Instructions .Route 0 10/30/24 .COMPLEX #90 tabs zolpidem 5 mg tablet 5 mg PO HS 60 days #30 tabs 11/04/24 albuterol sulfate 2.5 mg/3 mL See Rx Instructions .Rou te 11/09/24 (0.083 %) solution for nebulization .COMPLEX #75 mL ondansetron 4 mg disintegrating See Rx Instructions .R oute 11/09/24 tablet .COMPLEX #30 tabs fluticasone propionate 50 1 spray intranasal DAILY #16 grams 11/19/24 mcg/actuation nasal spray,suspension (Flonase Allergy Relief) gabapentin 600 mg tablet 600 mg PO TID #90 tabs 11/19 oxycodone-acetaminophen 10 mg-325 1 tab PO Q4-6H PRN p ain #120 tabs 11/19/24 mg tablet sumatriptan succinate 50 mg tablet See Rx Instructions PO .COMPLEX 11/20/24 #14 tabs Ventolin HFA 90 mcg/actuation See Rx Instructions .Rou te 11/23/24 aerosol inhaler (albuterol sulfate) .COMPLEX #18 grams famotidine 40 mg tablet See Rx Instructions .Route 0 11/23/24 .COMPLEX #90 tabs fluticasone fur. 200 mcg-umeclid See Rx Instructions . Route 11/23/24 62.5 mcg-vilant 25 mcg .COMPLEX #60 ea inhalat.powder (Trelegy Ellipta) Allergies Allergy/AdvReac Type Severity Reaction Status Date / Time No Known Allergies Allergy Verified 11/27/24 13:19 PFS <GALLO Artis - Last Filed: 11/27/24 22:07> [facility] Disclaimer: The information contained in this section may have been updated after the patient was seen, as this information can be updated by other users. Medical History COPD (chronic obstructive pulmonary disease) Hyperlipidemia Hypertension Social History Smoking Status: Current every day smoker alcohol intake: former current occupational status: unemployed Travel in the last 8 weeks?: None Have you lived/traveled outside US in past 30 days?: No Contact w/someone who lives/traveled outside US past 30 days?: No Exposure to someone with infectious disease in past 14 days?: No Do you have a fever (greater than 100.4 F or 38 C)?: No Have you tested positive for COVID-19?: No Exposed to someone with COVID-19 in past 14 days?: No Do you have a sore throat?: No Do you have a cough?: No Do you have any weakness?: No Do you have any diarrhea?: No Are you experiencing any unusual bleeding?: No Do you have any muscle aches/pain?: No Do you have any abdominal pain?: No Are you experiencing loss of taste or smell?: No Other Medical History Have you received the Flu Vaccine for this season: No Have you received the Pneumonia Vaccine: No <GALLO Artis - Last Filed: 11/27/24 22:07> ROS Obtained: Yes Systems reviewed as appropriate & no additional complaints except as documented Physical Exam <GALLO Artis - Last Filed: 11/27/24 22:07> General General appearance: alert Respiratory Respiratory exam: Present normal lung sounds bilaterally Cardiovascular Cardiovascular exam: Present regular rate Neurological Exam Neurological exam: Present alert and oriented X3 Medical Decision Making <GALLO Artis - Last Filed: 11/27/24 22:07> Medical Records Medical records reviewed: Yes I reviewed the patient's medical records. Screening: Per USPSTF and CDC recommendations, given the prevalence of disease in our region, it is our hospital?s policy to screen for HIV and viral Hepatitis for all patients aged 18 and over and those with ongoing risk factors. Roberto Inquiry Pt receiving controlled substance: No Vital Signs: 11/27/24 21:07 11/27/24 22:03 11/27/24 22:16 Temperature 98.1 F Temperature Source Oral Pulse Rate 67 Pulse Rate [Left] 70 Respiratory Rate 22 Blood Pressure 126/72 Blood Pressure [Right Arm] 176/83 H Blood Pressure Mean Blood Pressure Mean [Right Arm] 114 Blood Pressure Source [Right Arm] Automatic Cuff Blood Pressure Position [Right Arm] Sitting Supine 02 Sat by Pulse Oximetry 93 L 97 Oxygen Delivery Method Room Air 11/27/24 22:30 11/27/24 22:45 11/27/24 23:00 Temperature Temperature Source Pulse Rate 62 62 Pulse Rate [Left] Respiratory Rate Blood Pressure 163/82 H 142/73 H 185/87 H Blood Pressure [Right Arm] Blood Pressure Mean 101 Blood Pressure Mean [Right Arm] Blood Pressure Source [Right Arm] Blood Pressure Position [Right Arm] 02 Sat by Pulse Oximetry 95 96 Oxygen Delivery Method 11/27/24 23:15 11/27/24 23:25 Temperature 98.1 F Temperature Source Pulse Rate 65 65 Pulse Rate [Left] Respiratory Rate 16 20 Blood Pressure 179/93 H 142/73 H Blood Pressure [Right Arm] Blood Pressure Mean 121 Blood Pressure Mean [Right Arm] Blood Pressure Source [Right Arm] Blood Pressure Position [Right Arm] 02 Sat by Pulse Oximetry 96 Oxygen Delivery Method Room Air Lab Data Lab results reviewed: Yes I reviewed the patient's lab results. Lab Results 11/27/24 22:00: WBC 9.2, RBC 5.66 H, Hgb 16.9 H, Hct 50.2 H, MCV 88.7, MCH 29.9, MCHC 33.7, RDW 12.8, Plt Count 245, MPV 8.5, Neut % (Auto) 64.0, Lymph % (Auto) 25.6, Will % (Auto) 7.9, Eos % (Auto) 1.6, Baso % (Auto) 0.5, Neut # (Auto) 5.9, Lymph # (Auto) 2.4, Will # (Auto) 0.7, Eos # (Auto) 0.2, Baso # (Auto) 0.1, S odium 125 L, Potassium 4.5, Chloride 89 L, Carbon Dioxide 31 H, Anion Gap 9.5, BUN 7, Creatinine 0.60, Estimated Creat Clear 76, Estimated GFR 101, Est GFR ( Amer) 122, Glucose 106 H, Calcium 9.3, Phosphorus 4.1, Magnesium 1.7, Total Bilirubin 0.6, AST 35 D, ALT 18, Alkaline Phosphatase 118, Total Protein 8.8 H, Albumin 4.9 D, Globulin 3.9 H, Albumin/Globulin Ratio 1.3 11/27/24 22:00 11/27/24 22:00 Orders (Tests/Meds): ED MEDICATIONS Discontinued Medications Generic Name Dose Route Start Last Admin Trade Name Darwin PRN Reason Stop Dose Admin Acetaminophen 1,000 mg 11/27/24 22:01 11/27/24 22:08 Acetaminophen 500mg Tab PO 11/27/24 22:02 1,000 mg ONCE ONE Administration Sodium Chloride 1,000 mls @ 999 mls/hr 11/27/24 22:01 11/27/24 22:08 Sod Chlor 0.9% 1000ml Bag IV 11/27/24 23:01 999 mls/hr .Q1H1M ONE Administration Ketorolac Tromethamine 15 mg 11/27/24 22:01 11/27/24 22:08 Ketorolac 30mg/Ml Vial IV 11/27/24 22:02 15 mg ONCE ONE Administration Ondansetron HCl 4 mg 11/27/24 22:01 11/27/24 22:08 Ondansetron 4mg/2ml Vial IV 11/27/24 22:02 4 mg ONCE ONE Administration Ondansetron HCl 4 mg 11/27/24 22:51 11/27/24 23:10 Ondansetron 4mg Odt SL 11/27/24 22:52 4 mg ONCE ONE Administration ORDERS Category Date Time Status CBC w/Auto Diff [Complete Blood Count Auto Diff] Stat Lab 11/27/24 22:00 Completed CMP [Comprehensive Metabolic Panel] Stat Lab 11/27/24 22:00 Completed Magnesium Stat Lab 11/27/24 22:00 Completed Phosphorous Stat Lab 11/27/24 22:00 Completed Medical Decision Narrative: In summary patient is a 64-year-old female who presents to the emergency department for evaluation of hyponatremia. Patient is patient is hypertensive on arrival with a blood pressure 176/83 with a heart rate of 70 sinus rhythm on the bedside monitor breathing 22 times a minute satting at 93% on room air upon arrival, afebrile at 90.1. Physical exam is remarkable for a well-nourished well-developed 61-year-old female who is currently in no acute distress. [place] Coma Score 15 and patient is awake alert and oriented person place circumstance. Cranial nerves II through XII grossly intact to exam, breath sounds clear and equal bilaterally to the bases without adventitious sounds cardiovascular is S1 is 2 regular rate and rhythm without murmurs gallops rubs or thrills or dependent edema noted. Abdomen soft nontender no rebound or guarding no rigidity.. Differential diagnosis includes inadequate oral intake versus [place] versus polypharmacy etc. Initial workup will be conducted with repeat CBC CMP mag and Phos. Initial interventions include crystalloid bolus. Initial workup ordered and pending at the time of handoff to Dr. Tao at 2200 hrs. <Ramy Tao MD - Last Filed: 11/28/24 10:54> Vital Signs: 11/27/24 21:07 11/27/24 22:03 11/27/24 22:16 Temperature 98.1 F Temperature Source Oral Pulse Rate 67 Pulse Rate [Left] 70 Respiratory Rate 22 Blood Pressure 126/72 Blood Pressure [Right Arm] 176/83 H Blood Pressure Mean Blood Pressure Mean [Right Arm] 114 Blood Pressure Source [Right Arm] Automatic Cuff Blood Pressure Position [Right Arm] Sitting Supine 02 Sat by Pulse Oximetry 93 L 97 Oxygen Delivery Method Room Air 11/27/24 22:30 11/27/24 22:45 11/27/24 23:00 Temperature Temperature Source Pulse Rate 62 62 Pulse Rate [Left] Respiratory Rate Blood Pressure 163/82 H 142/73 H 185/87 H Blood Pressure [Right Arm] Blood Pressure Mean 101 Blood Pressure Mean [Right Arm] Blood Pressure Source [Right Arm] Blood Pressure Position [Right Arm] 02 Sat by Pulse Oximetry 95 96 Oxygen Delivery Method 11/27/24 23:15 11/27/24 23:25 Temperature 98.1 F Temperature Source Pulse Rate 65 65 Pulse Rate [Left] Respiratory Rate 16 20 Blood Pressure 179/93 H 142/73 H Blood Pressure [Right Arm] Blood Pressure Mean 121 Blood Pressure Mean [Right Arm] Blood Pressure Source [Right Arm] Blood Pressure Position [Right Arm] 02 Sat by Pulse Oximetry 96 Oxygen Delivery Method Room Air Lab Data Lab Results 11/27/24 22:00: WBC 9.2, RBC 5.66 H, Hgb 16.9 H, Hct 50.2 H, MCV 88.7, MCH 29.9, MCHC 33.7, RDW 12.8, Plt Count 245, MPV 8.5, Neut % (Auto) 64.0, Lymph % (Auto) 25.6, Will % (Auto) 7.9, Eos % (Auto) 1.6, Baso % (Auto) 0.5, Neut # (Auto) 5.9, Lymph # (Auto) 2.4, Will # (Auto) 0.7, Eos # (Auto) 0.2, Baso # (Auto) 0.1, S odium 125 L, Potassium 4.5, Chloride 89 L, Carbon Dioxide 31 H, Anion Gap 9.5, BUN 7, Creatinine 0.60, Estimated Creat Clear 76, Estimated GFR 101, Est GFR ( Amer) 122, Glucose 106 H, Calcium 9.3, Phosphorus 4.1, Magnesium 1.7, Total Bilirubin 0.6, AST 35 D, ALT 18, Alkaline Phosphatase 118, Total Protein 8.8 H, Albumin 4.9 D, Globulin 3.9 H, Albumin/Globulin Ratio 1.3 Orders (Tests/Meds): ED MEDICATIONS Discontinued Medications Generic Name Dose Route Start Last Admin Trade Name Freq PRN Reason Stop Dose Admin Acetaminophen 1,000 mg 11/27/24 22:01 11/27/24 22:08 Acetaminophen 500mg Tab PO 11/27/24 22:02 1,000 mg ONCE ONE Administration Sodium Chloride 1,000 mls @ 999 mls/hr 11/27/24 22:01 11/27/24 22:08 Sod Chlor 0.9% 1000ml Bag IV 11/27/24 23:01 999 mls/hr .Q1H1M ONE Administration Ketorolac Tromethamine 15 mg 11/27/24 22:01 11/27/24 22:08 Ketorolac 30mg/Ml Vial IV 11/27/24 22:02 15 mg ONCE ONE Administration Ondansetron HCl 4 mg 11/27/24 22:01 11/27/24 22:08 Ondansetron 4mg/2ml Vial IV 11/27/24 22:02 4 mg ONCE ONE Administration Ondansetron HCl 4 mg 11/27/24 22:51 11/27/24 23:10 Ondansetron 4mg Odt SL 11/27/24 22:52 4 mg ONCE ONE Administration ORDERS Category Date Time Status CBC w/Auto Diff [Complete Blood Count Auto Diff] Stat Lab 11/27/24 22:00 Completed CMP [Comprehensive Metabolic Panel] Stat Lab 11/27/24 22:00 Completed Magnesium Stat Lab 11/27/24 22:00 Completed Phosphorous Stat Lab 11/27/24 22:00 Completed Medical Decision Narrative: In summary patient is a 64-year-old female who presents to the emergency department for evaluation of hyponatremia. Patient is patient is hypertensive on arrival with a blood pressure 176/83 with a heart rate of 70 sinus rhythm on the bedside monitor breathing 22 times a minute satting at 93% on room air upon arrival, afebrile at 90.1. Physical exam is remarkable for a well-nourished well-developed 61-year-old female who is currently in no acute distress. [place] Coma Score 15 and patient is awake alert and oriented person place circumstance. Cranial nerves II through XII grossly intact to exam, breath sounds clear and equal bilaterally to the bases without adventitious sounds cardiovascular is S1 is 2 regular rate and rhythm without murmurs gallops rubs or thrills or dependent edema noted. Abdomen soft nontender no rebound or guarding no rigidity.. Differential diagnosis includes inadequate oral intake versus [place] versus polypharmacy etc. Initial workup will be conducted with repeat CBC CMP mag and Phos. Initial interventions include crystalloid bolus. Initial workup ordered and pending at the time of handoff to Dr. Tao at 2200 hrs. I was consulted by the TANIA, and we discussed the complexity of the problems being addressed. I approve the treatment and management plan for this patient's care in the emergency department, thus performing a substantive portion of the medical decision making. Patient's workup showed unremarkable CBC, CMP with stable sodium of 125 (was 124 earlier today), magnesium within normal limits, phosphorus within normal limits. No TONIE. Previous records indicate the patient's sodium has been low for the past 2 years with a steady decline. Was 133 in March 2023 and was 134 in June of this year, and has been in the 124-126 range in November of this year. On reassessment, patient complains of chronic back pain and chronic migraine headache but notes that she was started on treatment by her primary care physician for that today. She reports chronic nausea but denies any vomiting. These issues appear chronic and are unlikely related to her low sodium as her sodium levels being low also appears to be chronic. Given this, is felt that she is appropriate for discharge at this time and encouraged her to drink fluids with plenty of electrolytes, including Gatorade, Pedialyte and to follow-up with her primary care physician next week for reassessment. Return precautions were given. All questions were answered. She demonstrated understanding and was in agreement this plan. She was then discharged from the emergency department in stable condition. Ramy Tao MD Critical Care <GALLO Artis - Last Filed: 11/27/24 22:07> Critical Care Time Critical Care Time: No
[2024-11-27] MEDS: 0.9 % SODIUM CHLORIDE 1000ML 1,000 ML 999 ML IV (22:08)
[2024-11-27] MEDS: ACETAMINOPHEN 500MG TAB 1000 MG PO (22:08)
[2024-11-27] MEDS: KETOROLAC 30MG/ML VIAL 15 MG IV (22:08)
[2024-11-27] MEDS: ONDANSETRON 4MG/2ML VIAL 4 MG IV (22:08)
[2024-11-27 22:11] LABS: Hematocrit 50.2 % (37.0-47.0); Hemoglobin 16.9 g/dL (12.2-16.2); Immature Granulocytes % 0.4 %; Mean Corpuscular HGB Conc 33.7 g/dL (31.8-35.4); Mean Corpuscular Hemoglobin 29.9 pg (27.0-31.2); Mean Corpuscular Volume 88.7 fl (81-99); Nucleated Red Blood Cells % 0 %; Platelet Count 245 K/mm3 (142-424); Red Blood Count 5.66 M/mm3 (4.20-5.40); Red Cell Distribution Width-SD 41.4 fL; White Blood Count 9.2 K/mm3 (4.8-10.8)
[2024-11-27 22:33] LABS: Albumin Level 4.9 g/dl (3.5-5.0); Chloride 89 mmol/L (98-107); Potassium 4.5 mmoL/L (3.5-5.1); Sodium 125 mmol/L (136-145)
[2024-11-27 22:36] LABS: Alanine Aminotransferase 18 U/L (12-78); Albumin/Globulin Ratio 1.3 (1.1-1.8); Alkaline Phosphatase 118 U/L (38-126); Anion Gap 9.5 mEq/L (5-15); Aspartate Amino Transferase 35 U/L (14-36); Bilirubin,Total 0.6 mg/dl (0.2-1.3); Blood Urea Nitrogen 7 mg/dl (7-17); Calcium 9.3 mg/dl (8.4-10.2); Carbon Dioxide 31 mmol/L (22.0-30.0); Creatinine Clearance Estimated 76 mL/min (50-200); Creatinine,Serum 0.60 mg/dl (0.52-1.04); Estimated Glomerular Filt Rate 101 ml/min (>60); GFR (African American) 122 ML/MIN (>60); Globulin 3.9 g/dL (1.3-3.2); Glucose 106 mg/dl (74-100); Magnesium 1.7 mg/dl (1.6-2.3); Phosphorous 4.1 mg/dl (2.5-4.5); Total Protein,Serum 8.8 g/dl (6.3-8.2)
[2024-11-27] MEDS: ONDANSETRON 4MG ODT 4 MG SL (23:10)
== END 2024-11-27 23:30 | disposition home or self-care (01) ==
PROVIDERS: Physician Assistant; Emergency Provider Student in an Organized Health Care Education/Training Program; PCP Family Medicine
DX: E87.1 Hypo-osmolality and hyponatremia (principal); F17.210 Nicotine dependence, cigarettes, uncomplicated; J44.9 Chronic obstructive pulmonary disease, unspecified; I10 Essential (primary) hypertension; E78.5 Hyperlipidemia, unspecified
CPT/HCPCS: 80053; 83735; 84100; 85025; 96361; 96374; 96375; 99284; J1885; J2405; J7030; Q0162

== ENCOUNTER 2025-01-21 14:58 | Outpatient (CLI) | payer MEDICAID, SELFPAY ==
[2025-01-21 20:52] LABS: Albumin Level 4.7 g/dl (3.5-5.0); Chloride 89 mmol/L (98-107); Potassium 4.4 mmoL/L (3.5-5.1); Sodium 129 mmol/L (136-145)
[2025-01-21 20:55] LABS: Alanine Aminotransferase 19 U/L (12-78); Albumin/Globulin Ratio 1.5 (1.1-1.8); Alkaline Phosphatase 97 U/L (38-126); Anion Gap 14.4 mEq/L (5-15); Aspartate Amino Transferase 25 U/L (14-36); Bilirubin,Total 0.6 mg/dl (0.2-1.3); Blood Urea Nitrogen 7 mg/dl (7-17); Carbon Dioxide 30 mmol/L (22.0-30.0); Creatinine,Serum 0.70 mg/dl (0.52-1.04); Estimated Glomerular Filt Rate 85 ml/min (>60); GFR (African American) 102 ML/MIN (>60); Globulin 3.1 g/dL (1.3-3.2); Total Protein,Serum 7.8 g/dl (6.3-8.2)
[2025-01-21 20:56] LABS: Calcium 9.4 mg/dl (8.4-10.2); Glucose 78 mg/dl (74-100)
[2025-01-21 21:05] LABS: Free T4 (Free Thyroxine) 1.20 ng/dl (0.78-2.19)
[2025-01-21 21:24] LABS: Thyroid Stimulating Hormone 2.54 uIU/mL (0.465-4.68)
--- OUTSIDE RECORDS SUMMARY | 2025-01-22 13:33 | XMS_ITS | Clinical Summary ---
Author Organization [facility] Address [address] [place] [address], [address] [place] [address] Care Team Providers Care Medical Service Technician Name Role Phone Malachi Cortez MD Primary Care Provider + Social History Tobacco Use Types Packs/Day Years Used Date Smoking Tobacco: Never Assessed Comments Unknown Sex and Gender Information Value Date Recorded Sex Assigned at Not on file Legal Sex Female 1:54 PM EST Gender Identity Not on file Sexual Orientation Not on file Plan of Treatment Not on file [facility] Care Teams Medical Service Technician Relationship Specialty Start Date End Date Malachi Cortez MD [address] [address] PCP - General Family Medicine 05/20/14
== END 2025-01-21 23:59 | disposition home or self-care (01) ==
LOC: LAB.DROPOF 01-22 13:32
PROVIDERS: PCP Family Medicine; Visit Provider Family Medicine
DX: E87.1 Hypo-osmolality and hyponatremia (principal); E03.9 Hypothyroidism, unspecified
CPT/HCPCS: 80053; 84439; 84443

== ENCOUNTER 2025-02-23 15:21 | Outpatient (CLI) | payer MEDICAID, SELFPAY ==
--- OUTSIDE RECORDS SUMMARY | 2025-02-23 15:24 | XMS_ITS | Clinical Summary ---
Author Organization [facility] Address [address] [place] [address], [address] [place] [address] Care Team Providers Care Scrap Burner Name Role Phone Malachi Cortez MD Primary Care Provider + Social History Tobacco Use Types Packs/Day Years Used Date Smoking Tobacco: Never Assessed Comments Unknown Sex and Gender Information Value Date Recorded Sex Assigned at Not on file Legal Sex Female 1:54 PM EST Gender Identity Not on file Sexual Orientation Not on file Plan of Treatment Not on file Insurance [facility] Care Teams Scrap Burner Relationship Specialty Start Date End Date Malachi Cortez MD [address] [place] [address] PCP - General Family Medicine 05/20/14
--- OUTSIDE RECORDS SUMMARY | 2025-02-23 15:24 | XMS_ITS | Clinical Summary ---
Author Organization [facility] Address [address] [place] [address] Phone Care Team Providers Care Security Field Supervisor Name Role Phone Nica Swan MD Unavailable [phone] Allergies Active Allergy Reactions Criticality Noted Date [...] Active fluticasone propionate (FLONASE) 50 mcg/actuation Nasl [place], SuspensionIndica tions:Seasonal allergic rhinitis, unspecified trigger Use [...] dilation 10/10/2022 Overview (10/10/2022): noted on CT [place] 09/17/22 with MRCP to be considered on [...] gabapentin for a month ANGEL as expected [id number] Rechecked UDS today as one was recently abn. Assessment & Plan (03/08/2022 1:54 PM EDT): Previously seen at pain clinic Treated with percocet in the pain clinic Now on gabapentin for the past few years Does not want to go back to pain clinic. Surgery entertained but patient wants no surgery. ANGEL as expected: [id number] Recheck in 3 months and prn Assessment [...] agreeable to that stipulation. Angel as expected: [id number] Assessment & Plan (10/27/2020 5:02 PM EDT): Ok to increase gabapentin to 800 mg QID Assessment & Plan (07/26/2020 11:51 AM EDT): ANGEL as expected [id number] Refilled gabapentin Continues to have chronic pain [...] Buspar, Trazodone Has an appointment with [facility] health but not until 12/27/22 [...] Date Smoking Tobacco: Every Day Cigarettes 1 48.8 Started: [birth year]/06/1976 Smokeless Tobacco: Never Tobacco Cessation:Ready [...] Date Recorded PHQ-2 Total Score 0 08/14/2022 [facility]ational Stress Questionnaire Answer Date [...] Exam 03/08/2023 03/08/2022 COVID-19 Vaccine (3 - 2024-2 6 season) 2025 12/16/2020, 11/18/2020 Influenza Vaccine (#1) 2025 7 [...] e Non-Reacti ve 08/04/2020 7:49 PM EDT [facility] [employer] Blood Venipuncture / Unknown 08/04/2020 4:13 PM EDT 08/04/2020 4:13 PM EDT us Malachi Cortez MD HEMATOLOGY ORDERABLES Final Result Performing Organization Address City/[facility]/ZIP Co de Phone Number [facility] [employer] [address] [facility], [place] [address] * [facility] EGD-COLONOSCOPY (12/22/2013 9:15 AM EDT) 12/22/2013 9:15 AM EDT Impressions [facility] - 12/22/2013 10:40 AM EDT This section is an excerpt of the full report. us Opal Lazaro MD GI PROCEDURE ORDERABLES Edited Result - Final Performing Organization Address [facility] Co de Phone Number [facility] [address] [place] [address] from Last 3 Months or Most Recently Relevant to Health Maintenance Insurance [facility] [employer] [place] [employer] [place] [employer] [place] Advance Directives For more information, please contact: [phone] * Full Code (Latest Code Status on File) Date Activated Date Inactivated Comments 08/01/2022 6:17 PM 08/03/2022 6:07 PM * Full Code Date Activated Date Inactivated Comments 07/14/2022 11:57 PM 07/18/2022 9:47 PM Care Teams Security Field Supervisor Relationship Specialty Start Date End Date Nica Swan MD [address] [address] Internal Medicine-Nephrology 08/02/22
[2025-02-23 15:49] LABS: Blood Urea Nitrogen 11 mg/dl (7-17); Creatinine,Serum 0.70 mg/dl (0.52-1.04); Estimated Glomerular Filt Rate 85 ml/min (>60); GFR (African American) 102 ML/MIN (>60)
--- NOTE | 2025-02-23 16:30 | MR_ITS ---
PROCEDURE INFORMATION: Exam: MR Head Without and With Contrast Exam date and time: 02/23/2025 3:52 PM Age: 64 years old Clinical indication: Pain; Headache; Aura effect not specified; Does not respond to medication; Migraines x years. Blurry vision comes along with it; Additional info: Chronic migraine TECHNIQUE: Imaging protocol: Magnetic resonance imaging of the head without and with contrast. Contrast material: PROHANCE; Contrast volume: 18 ml; Contrast route: IV; COMPARISON: No relevant prior studies available. FINDINGS: Brain: Mildly scattered periventricular and subcortical white matter hyperintensities are identified. There is no evidence of acute parenchymal hemorrhage, extra-axial collection, or acute infarction. There is no mass effect, midline shift, or downward herniation. There is no pathologic enhancement. Cerebral ventricles: Normal. No ventriculomegaly. Bones: Unremarkable. Paranasal sinuses: Normal as visualized. No acute sinusitis. Mastoid air cells: Records mastoid Orbital cavities: Unremarkable. Soft tissues: Unremarkable. IMPRESSION: 1. No evidence of acute process. No pathologic enhancement. 2. Mildly scattered white matter hyperintensities. Differential considerations include sequela of migraine headaches, demyelinating disease, gliosis from infectious/inflammatory source, or chronic microvascular ischemic change.
[2025-02-23] MEDS: SODIUM CHLORIDE 0.9% 10ML SYR (RAD ONLY) 10 ML IV (16:40)
[2025-02-23] MEDS: GADOTERIDOL INJ 20ML SYRINGE 18 ML IV (16:40)
== END 2025-02-23 23:59 | disposition home or self-care (01) ==
LOC: RAD 15:22
PROVIDERS: PCP Family Medicine; Visit Provider Family Medicine
DX: G43.809 Other migraine, not intractable, without status migrainosus (principal); R11.0 Nausea; R90.82 White matter disease, unspecified
CPT/HCPCS: 36415; 70553; 82565; 84520; A9576